=== PATIENT | female | born 1980 | race Caucasian/White ===

== ENCOUNTER 2023-12-22 20:52 | Observation (INO) ==
[2023-12-22 21:30] LABS: Hematocrit (blood only) 31.7 % (37.0-47.0); Hemoglobin 9.7 g/dl (12.0-16.0); Mean Corpuscular Hemoglobin 22.6 pg (25.0-34.0); Mean Corpuscular Hgb Conc 30.6 g/dL (32.0-36.0); Mean Corpuscular Volume 73.7 fL (80.0-100.0); Platelet Count 316 K/uL (130-400); RDW Coefficient of Variation 21.9 % (11.5-14.5); RDW Standard Deviation 55.8 fL (36.4-46.3); White Blood Count 13.35 K/ul (4.8-10.8)
[2023-12-22 21:38] LABS: INR 0.9 (0.9-1.1); Partial Thromboplastin Ratio 0.9; Partial Thromboplastin Time 24 Seconds (21-31); Prothrombin Time 10.3 Seconds (9.0-12.0)
[2023-12-22 21:57] LABS: Albumin Globulin Ratio 1.4 (0.9-2); Albumin Level 3.7 gm/dl (3.4-5.0); BUN Creatinine Ratio 8.2 (10-20); Bilirubin,Total 0.6 mg/dl (0.2-1.0); Calcium 8.7 mg/dl (8.6-10.3); Creatinine Clr Calc Pharmacy 132.9 ml/min; Est GFR (African American) 118.6 ml/min; Est GFR (Non-African American) 102.3 ml/min; Globulin 2.6 gm/dl (2.5-4.0); Potassium 3.5 mmol/L (3.5-5.1); Total Protein 6.3 gm/dl (6.0-8.3)
--- NOTE | 2023-12-22 21:59 | Emergency Department Note ---
Impression & Plan Acute GI bleeding, Crohns disease, Anemia ED Provider Note NAME: ALEJANDRA SUTTON AGE: 43 SEX: F : 1980 ARRIVES VIA: Walk-In INFORMANT: Patient, ED PROVIDER(S): Ernst Isaacs MD CHIEF COMPLAINT: Abdominal pain, dark stools, history of Crohn's MEDICAL DECISION MAKING: Patient presents due to concern for abdominal pain and dark stools. IV was established and blood work was obtained. Blood work shows a white count of 13 with a hemoglobin of 9. Patient's platelet count is unremarkable. ESR and CRP are elevated. Troponin negative. Patient CT abdomen pelvis does not show obvious bowel obstruction but may show inflammatory change. Given these concerns and the patient's dark stools the patient may benefit from GI consultation and further discussion about colonoscopy and/or endoscopy. Patient was ordered Protonix bolus and drip additional IV fluids. I did speak with the on-call hospitalist service Dr. Stewart and the patient was admitted to the medicine service. Discussion w/ other healthcare providers: Dr. Stewart inpatient medicine service Prior /Outside records reviewed: [facility] Patient was noted to have a tortuous colon with congested erythematous and hemorrhagic mucosa in the entire examined colon which was biopsied. Differential diagnosis: Crohn's flare, GI bleed, appendicitis, ovarian cyst, ovarian torsion, ectopic , TOA, PID, diverticulitis, UTI, obstruction, inflammatory bowel disease, renal colic, PUD, pancreatitis, biliary pathology, hernia, volvulus, constipation, as well as other pathologies were considered. Diagnostics, as interpreted by me: ECG: None Cardiac monitoring: An order was placed for continuous cardiac monitoring. The monitor shows a rate of 65 with sinus rhythm. Patient was placed on pulse oximetry Medical decision rules: None Imaging studies: I informally interpreted the patient's CT abdomen pelvis may show inflammatory changes of the distal small bowel no obvious bowel obstruction with formal report to follow. HPI: Patient presents due to concern for dark stools and abdominal pain. Patient reportedly was at [facility] earlier today and they were concerned about her symptoms but do not have a GI service. The patient was given the options of transportation versus AMA patient left AMA to present here. Patient has follow- up with Dr. Chavarria in the past and does have a history of Crohn's disease. Patient states that she had been on Remicade as well as Humira which also treated for RA but that she had allergic reactions and thus is not currently on any medications. The patient states that she has noticed some dark stools and occasional bright red blood. The patient does not take any blood thinning medications. Patient states that her pain is in the upper abdomen as well as in the left lower quadrant. Patient denies any prior history of diverticulitis. Patient does not take any blood thinners or NSAIDs. Patient is accompanied by a family member at bedside. Patient denies any chest pains or shortness of breath. The patient did have 1 episode of vomiting today and this was nonbloody. PAST MEDICAL HISTORY: See Below PAST SURGICAL HISTORY: See Below SOCIAL HISTORY: See Below HOME MEDICATIONS: See Below ALLERGIES: See Below VITALS: See Below PHYSICAL EXAMINATION: GENERAL: NAD, non-toxic. EYE EXAM: Normal conjunctiva. PERRL, no anisocoria and EOM's grossly intact w/o pain. OROPHARYNX: Moist mucus membranes, grossly normal dentition. NECK: Trachea midline, no stridor. LUNGS: Clear to auscultation. Normal chest wall mechanics. HEART: NSR, no MRG. ABDOMEN: Abdomen soft, epigastric and left lower quadrant pain, no masses, no rebound or guarding. BACK: No CVA TTP. SKIN: No rashes and no bruising. UPPER EXTREMITIES: Upper extremities are grossly normal. LOWER EXTREMITIES: Grossly normal, no edema. NEURO EXAM: A&O x3, cranial nerves II-XII grossly intact, normal speech, moves all 4 extremities. Past Med/Surg History Problem List (Updated 12/23/23 @ 01:21 by Ernst Isaacs MD) Anemia (Acute) Acute GI bleeding (Acute) Diarrhea Encounter for pre-operative examination Crohns disease (Acute) Rheumatoid arthritis Surgical History History of dilatation and curettage x2 History of section x2 History of colonoscopy History of esophagogastroduodenoscopy (EGD) History of cholecystectomy History of tooth extraction History of wisdom tooth extraction History of tonsillectomy Family History Grandfather (Maternal) Family history of diabetes mellitus Grandfather (Paternal) Family history of diabetes mellitus Other No family history of adverse response to anesthesia Social History Smoking Status: Never smoker Second Hand Exposure: No; Do You Dip or Chew Tobacco: No; Hx Alcohol Use: Yes Alcohol type: wine Hx Substance Use: No Preferred Language: Kyrgyz Communication Ability: Effective Supervisor Composing Room Required: No Beliefs That Will Affect Care: None Current Living Situation: Spouse Current Living Situation Comment: Lives with and 2 kids Feels Safe at Home: Yes Assistive Devices: Contacts and Glasses Allergies Allergies Allergy/AdvReac Type Severity Reaction Status Date / Time infliximab [From Remicade] Allergy Severe Anaphylaxis Verified 04/03/21 11:10 Home Meds Home Medications Medication Instructions Recorded Confirmed mercaptopurine 50 mg tablet 100 mg PO QAM Crohns colitis 05/24/20 04/03/21 sertraline 100 mg tablet (Zoloft) 100 mg PO QAM 03/30/21 04/03/21 Previous Rx's Medication Instructions Recorded adalimumab 40 mg/0.4 mL See Rx Instructions subcut 04/05/20 subcutaneous pen kit (Humira(CF) .COMPLEX #2 ea Pen) hydrocortisone 2.5 % topical cream 1 applic topical BID PRN skin 11/08/21 irritation #30 grams Results & Data (ED) Vital Signs Vital Signs - 24 hr 12/22/23 20:54 12/22/23 21:57 12/22/23 22:00 Temperature 36.8 C Temperature Source Temporal Artery Scan Pulse Rate 82 66 Pulse Rate [Apical] 68 Respiratory Rate 16 15 Respiratory Effort / Characteristics Non-Labored Respiratory Depth Normal Respiratory Pattern Regular Blood Pressure 156/93 H Blood Pressure [Right Arm] 141/83 H Blood Pressure Mean 114 Blood Pressure Mean [Right Arm] 102 Pulse Oximetry 98 98 Oxygen Delivery Method Room Air Room Air Sepsis Recent Fever Within 48 Hours No Sepsis New/Unexplained Change in Mental Status N/A Sepsis Action Taken by Nursing No Action Required 12/23/23 00:01 Temperature Temperature Source Pulse Rate Pulse Rate [Apical] 60 Respiratory Rate Respiratory Effort / Characteristics Respiratory Depth Respiratory Pattern Blood Pressure Blood Pressure [Right Arm] 116/69 Blood Pressure Mean Blood Pressure Mean [Right Arm] 84 Pulse Oximetry 99 Oxygen Delivery Method Room Air Sepsis Recent Fever Within 48 Hours Sepsis New/Unexplained Change in Mental Status Sepsis Action Taken by Group Home Medications Current Medication List: was personally reviewed by me Laboratory Data Attestation: I reviewed the patient's lab results. 12/22/23 21:15 12/22/23 21:15 Lab Results 12/22/23 12/22/23 Range/Units 21:14 21:15 WBC 13.35 H (4.8-10.8) K/ul RBC 4.30 (4.20-5.40) M/uL Hgb 9.7 L (12.0-16.0) g/dl Hct 31.7 L (37.0-47.0) % MCV 73.7 L (80.0-100.0) fL MCH 22.6 L (25.0-34.0) pg MCHC 30.6 L (32.0-36.0) g/dL RDW Std Deviation 55.8 H (36.4-46.3) fL RDW Coeff of Dionne 21.9 H (11.5-14.5) % Plt Count 316 (130-400) K/uL MPV 10.0 (9.4-12.4) fL ESR 26 H (0-20) mm/hr PT 10.3 (9.0-12.0) Seconds INR 0.9 (0.9-1.1) APTT 24 (21-31) Seconds PTT Ratio 0.9 Sodium 137 (136-145) mmol/L Potassium 3.5 (3.5-5.1) mmol/L Chloride 107 (98-107) mmol/L Carbon Dioxide 23 (21-32) mmol/L Anion Gap 7 (3-11) BUN 6 (6-23) mg/dl Creatinine 0.73 (0.6-1.2) mg/dl Est Cr Clr Drug Dosing 132.9 ml/min Est GFR ( Amer) 118.6 ml/min Est GFR (Non-Af Amer) 102.3 ml/min BUN/Creatinine Ratio 8.2 L (10-20) Glucose 101 H (70-99(Fasting)) mg/dl Calcium 8.7 (8.6-10.3) mg/dl Total Bilirubin 0.6 (0.2-1.0) mg/dl AST 16 (13-39) U/L ALT 12 (7-52) U/L Alkaline Phosphatase 57 (34-104) U/L Troponin I High Sens 3.5 (0-14) pg/ml C-Reactive Protein 2.26 H (0-0.5) mg/dl Total Protein 6.3 (6.0-8.3) gm/dl Albumin 3.7 (3.4-5.0) gm/dl Globulin 2.6 (2.5-4.0) gm/dl Albumin/Globulin Ratio 1.4 (0.9-2) Blood Type O Positive Antibody Screen NEGATIVE Administered Medications Discontinued Medications Sodium Chloride (Nss) 1,000 mls @ 999 mls/hr IV .Q1H1M LENORA Stop: 12/23/23 00:30 Last Infusion: 12/23/23 01:04 Dose: Infused Documented By: Admin: 12/23/23 00:01 Dose: 999 mls/hr Documented By: Infusion: 12/22/23 23:43 Dose: Infused Documented By: Admin: 12/22/23 22:42 Dose: 999 mls/hr Documented By: NORTH Ioversol (Optiray 320 100ml) 94 ml IV ONCE ONE Stop: 12/22/23 22:06 Last Admin: 12/22/23 22:07 Dose: 94 ml Documented By: VELASQUEZ Ondansetron HCl (Ondansetron Inj 2 Mg/Ml 2 Ml Vial) 4 mg IV NOW STA Stop: 12/22/23 22:30 Last Admin: 12/22/23 22:40 Dose: 4 mg Documented By: NORTH Discharge Plan Visit Data Chief Complaint: GI Bleed Stated Complaint: KRONES, ABD PAIN, BLOODY STOOL ED Provider: Ernst Isaacs Discharge Problem: Acute GI bleeding, Crohns disease, Anemia Forms Stand Alone Forms: [facility] Prescriptions Prescriptions: No Action Humira(CF) Pen 40 mg/0.4 mL pen injector kit See Rx Instructions subcut .COMPLEX Qty: 2 5RF Rx Instructions: inject one - 40 mg/0.4 mL pen every 2 weeks subcut hydrocortisone 2.5 % cream 1 applic topical BID PRN (Reason: skin irritation) Qty: 30 1RF mercaptopurine 50 mg tablet 100 mg PO QAM sertraline [Zoloft] 100 mg Tablet 100 mg PO QAM Referrals Referrals: PCP,NO [Primary Care Provider] - Discharge Problem: Crohns disease Qualifiers: Gastrointestinal tract location: unspecified location Anemia Qualifiers: Anemia type: unspecified type Qualified Code(s): D64.9 - Anemia, unspecified
[2023-12-22 22:06] LABS: Troponin I High Sensitivity 3.5 pg/ml (0-14)
[2023-12-22] MEDS: OPTIRAY 320 100ml IV ONE (22:07)
[2023-12-22 22:30] LABS: C Reactive Protein 2.26 mg/dl (0-0.5)
[2023-12-22] MEDS: ONDANSETRON INJ 2 MG/ML 2 ML VIAL IV STA (22:40)
[2023-12-22] MEDS: SODIUM CHLORIDE 0.9% 1,000 ML IV SCH (22:42)
[2023-12-23] MEDS: PANTOprazole 80 MG in DEXTROSE 5% 100 ML IV ONE (01:17)
--- NOTE | 2023-12-23 01:35 | CT Scan Report ---
Exam(s): CT ABDOMEN + PELVIS With Contrast IV Amt: 94 ml opti 320 EXAM: CT Abdomen and Pelvis With Intravenous Contrast CLINICAL HISTORY: Pain TECHNIQUE: Axial computed tomography images of the abdomen and pelvis with intravenous contrast. CTDI is 28.05 mGy and DLP is 1508.92 mGy-cm. Automated exposure control was utilized for the study. A dose lowering technique was utilized adhering to the principles of ALARA. CONTRAST: Patient received 94 ml opti 320 of IV contrast COMPARISON: No relevant prior studies available. FINDINGS: Lung bases: Unremarkable. No mass. No consolidation. ABDOMEN: Liver: Unremarkable. No mass. Gallbladder and bile ducts: Cholecystectomy. No ductal dilation. Pancreas: Unremarkable. No mass. No ductal dilation. Spleen: Unremarkable. No splenomegaly. Adrenals: Unremarkable. No mass. Kidneys and ureters: Unremarkable. No solid mass. No hydronephrosis. Stomach and bowel: Surgical changes of the stomach and small bowel. No bowel obstruction. A small amount of free fluid in the descending colon is consistent with diarrheal state. PELVIS: Appendix: No findings to suggest acute appendicitis. Bladder: Unremarkable. No mass. Reproductive: Unremarkable as visualized. ABDOMEN and PELVIS: Intraperitoneal space: No free air. Bones/joints: There are degenerative changes of the spine. No acute fracture. No dislocation. Soft tissues: Unremarkable. Vasculature: Minimal atherosclerosis. No abdominal aortic aneurysm. Lymph nodes: Unremarkable. No enlarged lymph nodes. IMPRESSION: A small amount of free fluid in the descending colon is consistent with diarrheal state. Otherwise, no acute finding. Electronically signed by: Shanda Brown MD 12/23/23 01:34 AM
[2023-12-23] MEDS: PANTOprazole 40 MG in DEXTROSE 5% MINI-B 100 ML IV SCH (01:36)
[2023-12-23] MEDS: SODIUM CHLORIDE 0.9% 1,000 ML IV ONE (01:47)
[2023-12-23] MEDS: PANTOPRAZOLE BOLUS/DRIP IV STA (03:09)
[2023-12-23] MEDS ORDERED: HYDROmorphone INJ 0.5 MG/0.5 ML SYR IV PRN (06:07)
[2023-12-23] MEDS ORDERED: NITROGLYCERIN SL 0.4 MG/TAB TAB SL PRN (06:07)
[2023-12-23] MEDS ORDERED: ACETAMINOPHEN 325 MG TAB PO PRN (06:07)
[2023-12-23] MEDS ORDERED: ONDANSETRON INJ 2 MG/ML 2 ML VIAL IV PRN (06:07)
[2023-12-23] MEDS: SODIUM CHLORIDE 0.9% 1,000 ML IV SCH (06:18)
--- NOTE | 2023-12-23 06:23 | History & Physical Report ---
Date of Service December 23, 2023 Assessment & Plan (1) GI bleed: Plan: 43-year-old female with past medical history significant for ulcerative colitis and rheumatoid arthritis, currently not on any medications presents with abdominal pain and black stools. Patient states for last few days having abdominal pain moderate to severe in severity. She also noticed stools are black. Because of ongoing symptoms she went to [facility] and as there was no GI she came here. At [facility] patient states her stool was positive for Hemoccult. Denies any fevers. States had one episode of vomiting. Currently nauseous. Denies any chest pain or shortness of breath. No cough. No fevers. No headache. Vision is okay. No runny nose or sore throat. Micturating okay. Hemodynamics are okay. GI bleed melena hemoglobin 9.7 Protonix drip n.p.o., IV fluids. Blood consent obtained will follow H&H telemetry GI consult Crohn's disease states Remicade caused allergic reaction. After some time she developed allergic reaction to Humira also. Currently not on any medication since last 1 and half year as per patient. Probably ongoing symptoms could be Crohn's flare GI consulted for further recommendations. Rheumatoid arthritis Not on medications will check ESR and CRP needs follow-up DVT prophylaxis SCDs disposition telemetry full code History of Present Illness Chief Complaint: Abdominal pain and GI bleed Primary Care Provider: NO PCP 43-year-old female with past medical history significant for ulcerative colitis and rheumatoid arthritis, currently not on any medications presents with abdominal pain and black stools. Patient states for last few days having abdominal pain moderate to severe in severity. She also noticed stools are black. Because of ongoing symptoms she went to [facility] and as there was no GI she came here. At [facility] patient states her stool was positive for Hemoccult. Denies any fevers. States had one episode of vomiting. Currently nauseous. Denies any chest pain or shortness of breath. No cough. No fevers. No headache. Vision is okay. No runny nose or sore throat. Micturating okay. Hemodynamics are okay. Past medical history. As mentioned above past surgical history. . Colonoscopy. Cholecystectomy. Tonsillectomy. Social history. Quit smoking 2009. Alcohol occasionally. No drug use. Family history. Maternal grandfather had diabetes. Paternal grandfather had diabetes. Allergies Allergy/AdvReac Type Severity Reaction Status Date / Time infliximab [From Remicade] Allergy Severe Anaphylaxis Verified 12/23/23 01:22 Home Medications Medication Instructions Recorded Confirmed Type medroxyprogesterone 150 mg/mL 150 mg IM UD 12/23/23 12/23/23 History intramuscular syringe Past Med/Surg History Problem List (Updated 12/23/23 @ 06:19 by Lyle Stewart MD) GI bleed Anemia (Acute) Acute GI bleeding (Acute) Diarrhea Encounter for pre-operative examination Crohns disease (Acute) Rheumatoid arthritis Surgical History History of dilatation and curettage x2 History of section x2 History of colonoscopy History of esophagogastroduodenoscopy (EGD) History of cholecystectomy History of tooth extraction History of wisdom tooth extraction History of tonsillectomy Family History Grandfather (Maternal) Family history of diabetes mellitus Grandfather (Paternal) Family history of diabetes mellitus Other No family history of adverse response to anesthesia Social History Smoking Status: Never smoker Second Hand Exposure: No; Do You Dip or Chew Tobacco: No; Tobacco Cessation Education Requested by Patient: No Hx Alcohol Use: No Hx Substance Use: No Preferred Language: Luxembourgish Communication Ability: Effective Teaching Fellow Required: No Beliefs That Will Affect Care: None Current Living Situation: Alone Current Living Situation Comment: Lives with and 2 kids Other Information That Helps Us Care for You: No Feels Safe at Home: Yes Safety Concerns: Feels Safe At This Time Assistive Devices: None Review of Systems Review of Systems: All systems reviewed & are unremarkable except as noted in HPI & below Physical Exam Physical Exam: General- Not in distress Head- atraumatic Eyes- PERRL. ENT- oropharynx clear Neck- supple, no JVD. Lungs- clear to auscultation no wheezing or crackles Heart- regular rate and rhythm; no murmur, no gallop. Abdomen- normal bowel sounds, soft, nontender, no distension Extremities- no pretibial edema, no erythema seen Neuro- alert, oriented PERRL, no facial palsy; no dysarthria; moves extremities. Results & Data Results & Data Vital Signs (Past 12 Hours) Vital Signs Temp Pulse Pulse Resp BP BP Pulse Ox 12/23/23 03:00 63 18 113/70 12/23/23 01:49 72 12/23/23 00:01 60 116/69 99 12/22/23 22:00 66 12/22/23 21:57 68 15 141/83 H 98 12/22/23 20:54 36.8 C 82 16 156/93 H 98 O2 Del Method 12/23/23 03:00 12/23/23 01:49 12/23/23 00:01 Room Air 12/22/23 22:00 12/22/23 21:57 Room Air 12/22/23 20:54 Room Air Diagnostic Findings Laboratory Results WBC 13.35 K/ul (4.8-10.8) H 12/22/23 21:15 RBC 4.30 M/uL (4.20-5.40) 12/22/23 21:15 Hgb 9.7 g/dl (12.0-16.0) L 12/22/23 21:15 Hct 31.7 % (37.0-47.0) L 12/22/23 21:15 MCV 73.7 fL (80.0-100.0) L 12/22/23 21:15 MCH 22.6 pg (25.0-34.0) L 12/22/23 21:15 MCHC 30.6 g/dL (32.0-36.0) L 12/22/23 21:15 RDW Std Deviation 55.8 fL (36.4-46.3) H 12/22/23 21:15 RDW Coeff of Dionne 21.9 % (11.5-14.5) H 12/22/23 21:15 Plt Count 316 K/uL (130-400) 12/22/23 21:15 MPV 10.0 fL (9.4-12.4) 12/22/23 21:15 ESR 26 mm/hr (0-20) H 12/22/23 21:15 PT 10.3 Seconds (9.0-12.0) 12/22/23 21:14 INR 0.9 (0.9-1.1) 12/22/23 21:14 APTT 24 Seconds (21-31) 12/22/23 21:14 PTT Ratio 0.9 12/22/23 21:14 Sodium 137 mmol/L (136-145) 12/22/23 21:15 Potassium 3.5 mmol/L (3.5-5.1) 12/22/23 21:15 Chloride 107 mmol/L (98-107) 12/22/23 21:15 Carbon Dioxide 23 mmol/L (21-32) 12/22/23 21:15 Anion Gap 7 (3-11) 12/22/23 21:15 BUN 6 mg/dl (6-23) 12/22/23 21:15 Creatinine 0.73 mg/dl (0.6-1.2) 12/22/23 21:15 Est Cr Clr Drug Dosing 132.9 ml/min 12/22/23 21:15 Est GFR ( Amer) 118.6 ml/min 12/22/23 21:15 Est GFR (Non-Af Amer) 102.3 ml/min 12/22/23 21:15 BUN/Creatinine Ratio 8.2 (10-20) L 12/22/23 21:15 Glucose 101 mg/dl (70-99(Fasting)) H 12/22/23 21:15 Calcium 8.7 mg/dl (8.6-10.3) 12/22/23 21:15 Total Bilirubin 0.6 mg/dl (0.2-1.0) 12/22/23 21:15 AST 16 U/L (13-39) 12/22/23 21:15 ALT 12 U/L (7-52) 12/22/23 21:15 Alkaline Phosphatase 57 U/L (34-104) 12/22/23 21:15 Troponin I High Sens 3.5 pg/ml (0-14) 12/22/23 21:15 C-Reactive Protein 2.26 mg/dl (0-0.5) H 12/22/23 21:15 Total Protein 6.3 gm/dl (6.0-8.3) 12/22/23 21:15 Albumin 3.7 gm/dl (3.4-5.0) 12/22/23 21:15 Globulin 2.6 gm/dl (2.5-4.0) 12/22/23 21:15 Albumin/Globulin Ratio 1.4 (0.9-2) 12/22/23 21:15 Blood Type O Positive 12/22/23 21:15 Antibody Screen NEGATIVE 12/22/23 21:15 Impressions Abdomen/Pelvis CT 12/22/23 21:55 Exam(s): CT ABDOMEN + PELVIS With Contrast IV Amt: 94 ml opti 320 EXAM: CT Abdomen and Pelvis With Intravenous Contrast CLINICAL HISTORY: Pain TECHNIQUE: Axial computed tomography images of the abdomen and pelvis with intravenous contrast. CTDI is 28.05 mGy and DLP is 1508.92 mGy-cm. Automated exposure control was utilized for the study. A dose lowering technique was utilized adhering to the principles of ALARA. CONTRAST: Patient received 94 ml opti 320 of IV contrast COMPARISON: No relevant prior studies available. FINDINGS: Lung bases: Unremarkable. No mass. No consolidation. ABDOMEN: Liver: Unremarkable. No mass. Gallbladder and bile ducts: Cholecystectomy. No ductal dilation. Pancreas: Unremarkable. No mass. No ductal dilation. Spleen: Unremarkable. No splenomegaly. Adrenals: Unremarkable. No mass. Kidneys and ureters: Unremarkable. No solid mass. No hydronephrosis. Stomach and bowel: Surgical changes of the stomach and small bowel. No bowel obstruction. A small amount of free fluid in the descending colon is consistent with diarrheal state. PELVIS: Appendix: No findings to suggest acute appendicitis. Bladder: Unremarkable. No mass. Reproductive: Unremarkable as visualized. ABDOMEN and PELVIS: Intraperitoneal space: No free air. Bones/joints: There are degenerative changes of the spine. No acute fracture. No dislocation. Soft tissues: Unremarkable. Vasculature: Minimal atherosclerosis. No abdominal aortic aneurysm. Lymph nodes: Unremarkable. No enlarged lymph nodes. IMPRESSION: A small amount of free fluid in the descending colon is consistent with diarrheal state. Otherwise, no acute finding. Electronically signed by: Shanda Brown MD 12/23/23 01:34 AM ECG Additional Comments: ECG. Normal sinus rhythm rate of 60. No acute ST Changes seen. QTc 408. Code Status & VTE Plan VTE Prophylaxis Plan VTE Prophylaxis will be ordered: Yes
[2023-12-23 07:48] LABS: Basophils # (auto) 0.06 K/uL (0.00-0.20); Basophils % (auto) 0.7 %; Eosinophils # (auto) 0.39 K/uL (0.00-0.50); Eosinophils % (auto) 4.6 %; Hematocrit (blood only) 26.8 % (37.0-47.0); Hemoglobin 8.1 g/dl (12.0-16.0); Immature Granulocytes # (auto) 0.06 K/uL (0.01-0.20); Immature Granulocytes % (auto) 0.7 %; Lymphocytes # (auto) 1.25 K/uL (1.20-3.40); Lymphocytes % (auto) 14.8 %; Mean Corpuscular Hemoglobin 22.5 pg (25.0-34.0); Mean Corpuscular Hgb Conc 30.2 g/dL (32.0-36.0); Mean Corpuscular Volume 74.4 fL (80.0-100.0); Mean Platelet Volume 9.4 fL (9.4-12.4); Monocytes # (auto) 0.65 K/uL (0.11-0.59); Monocytes % (auto) 7.7 %; Neutrophils # (auto) 6.02 K/uL (1.40-6.50); Neutrophils % (auto) 71.5 %; Platelet Count 221 K/uL (130-400); RDW Coefficient of Variation 21.9 % (11.5-14.5); RDW Standard Deviation 57.7 fL (36.4-46.3); White Blood Count 8.43 K/ul (4.8-10.8)
[2023-12-23 08:17] LABS: Anisocytosis Present; Polychromasia 2+
[2023-12-23 08:26] LABS: Calcium 7.2 mg/dl (8.6-10.3); Magnesium 1.6 mg/dl (1.7-2.4); Potassium 3.6 mmol/L (3.5-5.1)
[2023-12-23 08:32] LABS: BUN Creatinine Ratio 5.6 (10-20); Creatinine Clr Calc Pharmacy 137.5 ml/min; Est GFR (African American) 120.6 ml/min
--- NOTE | 2023-12-23 09:03 | Gastrointestinal Consultation ---
Date of Consultation December 23, 2023 Assessment & Plan (1) GI bleed: 43 year old female with history of Crohn's colitis, RA, psoriasis previously established with , [facility] in 2017, [facility] 2020, [facility] who has tried and failed humira, remicade, simponi, stelara, 6mp admitted with midline abd pain, black stools and diarrhea. She has microcytic anemia w/ HGB of 8 withoutBUN elevation, CT suggestive of diarrhea, stool studies not obtained. Check fecal calprotectin Check stool culture and c.diff Quant gold, acute hepatitis panel Check iron studies and ferritin Start oral iron supplementation pending results PO PPI BID Trend H&H Monitor and document GI output Transfuse PRN per primary service She is hoping to establish with a tertiary IBD center, endoscopy should be completed by this service unless urgently indicated. She can consider evaluation at [facility], [facility], [facility] or [facility] which all have dedicated IBD centers. We appreciate assistance in the management of any serological abnormality and corrections to include: hemoglobin >7, INR <2, platelets >50,000, potassium levels >3.5 but <5.3, and sodium levels within 5 points of the reference range prior to endoscopic evaluation. Thank you for allowing us to participate in the care of this patient. Please call with any acute changes, questions or concerns. Please see addendum below with additional recommendation from my supervising physician. I spent a total of 60 minutes on the date of service in review of patient's record, and previously obtained information in person and appropriate medical visit, discussion and education of plan, with patient and/or caregiver, placing orders for tests/referral/procedures as medically necessary and documentation of pertinent clinical information in patient's medical records for their visit today. (2) Anemia: Supervising Physician Co-Signing Physician Notes I examined the patient and reviewed the medical record, laboratory data and imaging studies. I agree with the assessment and plan of care as suggested by the advanced practice provider. Pleasant 43-year-old female who has been having GI colitis since 2018 as per the colonoscopy reports during different colonoscopy reports there is mention of pancolonic inflammation in between she also became normal then she had recurrence of inflammation in the last colonoscopy report there was also pancolonic inflammation of note I reviewed the images and there appeared to be more consistent with ulcerative colitis than Crohn's disease there was a diffuse area of inflammation and there were no distinct aphthous ulcerations that were seen the patient is also behaving more so like you see them close disease her recent CAT scan I reviewed with radiology and it appeared essentially from the colonic standpoint at the current time she is having variable amount of bowel movements varying from 2-6 with some bleeding intermittently she has some nonspecific abdominal pain since being admitted to the hospital she has not had any more bowel movements she has been on Remicade Humira and some other medication that she cannot fully remember and she may have been on more meds also currently has not been on any meds for the last 9 months and has not been seeing any GI also her abdomen is soft no tenderness or masses are appreciated at the current time I would 1. Check stool studies including C. difficile ova parasites culture and sens itivity 2. Follow CRP levels 3. In view of the fact that she has not had a bowel movement since she has been here and she is only having 2-6 bowel movements I would not treat her with steroids 4. IV iron replacement therapy and then outpatient iron replacement 5. She needs to establish care with a retail parts pro will probably need to repeat her colonoscopy and depending upon the findings decide to place her on some long-term therapy in the meantime we will consider starting her on mesalamine if she has not been on it Thank you for allowing us to take part in the care of your patient we will continue to follow her with you History of Present Illness Reason for Consultation: GI bleeding Requesting Physician: Arian Attending Physician: Devonte Don MD History of Present Illness 43 year old female with history of Crohn's colitis, RA, psoriasis previously established with [facility] in 2020, [facility] in 2016 and most recently [facility] in 2022 who is admitted through the ED w/ abdominal pain, nausea/vomiting and diarrhea w/ report of black stools. Pt was seen and evaluated, chart reviewed. She notes that she has been without IBD specific medication for about 1 year. Notes she has been symptomatic the entire time but worsened over the last 1-2 weeks. Notes generalized abdominal pain, most localized around her umbilicus. The pain is worse with BM and oral intake. There has been nausea with emesis x 1 event. No black or bloody emesis. He has had intermittent black stools with mucous for the last few weeks. No BRBPR. Bowel movements range in from 2-10 times daily. 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 Otherwise, no acute finding. Colonoscopy 09/23/2022: - Tortuous colon. - Congested, erythematous and hemorrhagic mucosa in the entire examined colon. Biopsied. Allergies Allergy/AdvReac Type Severity Reaction Status Date / Time infliximab [From Remicade] Allergy Severe Anaphylaxis Verified 12/23/23 01:22 Home Medications Medication Instructions Recorded Confirmed Type medroxyprogesterone 150 mg/mL 150 mg IM UD 12/23/23 12/23/23 History intramuscular syringe Patient History Surgical History History of dilatation and curettage x2 History of section x2 History of colonoscopy History of esophagogastroduodenoscopy (EGD) History of cholecystectomy History of tooth extraction History of wisdom tooth extraction History of tonsillectomy Family History Grandfather (Maternal) Family history of diabetes mellitus Grandfather (Paternal) Family history of diabetes mellitus Other No family history of adverse response to anesthesia Social History Smoking Status: Never smoker Second Hand Exposure: No; Do You Dip or Chew Tobacco: No; Tobacco Cessation Education Requested by Patient: No Hx Alcohol Use: No Hx Substance Use: No Preferred Language: Yi Communication Ability: Effective Power Shovel Engineer Required: No Beliefs That Will Affect Care: None Current Living Situation: Alone Current Living Situation Comment: Lives with and 2 kids Other Information That Helps Us Care for You: No Feels Safe at Home: Yes Safety Concerns: Feels Safe At This Time Assistive Devices: None Review of Systems Review of Systems: All other findings negative except as noted in HPI. Physical Exam Constitutional: WD/WN, vitals as above Respiratory: normal respiratory effort, lungs clear to auscultation Cardiovascular: Rate/Rhythm: regular rate and regular rhythm Gastrointestinal (Abdomen): Inspection/Auscultation: normal bowel sounds Percussion/Palpation: + abdomen tender (generalized) and abdomen soft; no guarding and abdomen not rigid Skin: no rashes, warm and dry Results & Data Vital Signs (Past 12 Hours) Vital Signs Temp Pulse Pulse Resp BP BP Pulse Ox 12/23/23 07:47 36.8 C 63 18 110/77 99 12/23/23 06:20 57 L 12/23/23 06:07 36.9 C 64 16 119/69 99 12/23/23 05:33 55 L 12/23/23 05:00 55 L 16 106/62 12/23/23 04:00 59 L 18 113/67 12/23/23 03:00 63 18 113/70 12/23/23 01:49 72 12/23/23 00:01 60 116/69 99 12/22/23 22:00 66 12/22/23 21:57 68 15 141/83 H 98 O2 Del Method 12/23/23 07:47 Room Air 12/23/23 06:20 12/23/23 06:07 Room Air 12/23/23 05:33 12/23/23 05:00 12/23/23 04:00 12/23/23 03:00 12/23/23 01:49 12/23/23 00:01 Room Air 12/22/23 22:00 12/22/23 21:57 Room Air Laboratory Results 12/23/23 12/22/23 12/22/23 Range/Units 07:27 21:15 21:14 WBC 8.43 13.35 H (4.8-10.8) K/ul RBC 3.60 L 4.30 (4.20-5.40) M/uL Hgb 8.1 L 9.7 L (12.0-16.0) g/dl Hct 26.8 L 31.7 L (37.0-47.0) % MCV 74.4 L 73.7 L (80.0-100.0) fL MCH 22.5 L 22.6 L (25.0-34.0) pg MCHC 30.2 L 30.6 L (32.0-36.0) g/dL RDW Std Deviation 57.7 H 55.8 H (36.4-46.3) fL RDW Coeff of Dionne 21.9 H 21.9 H (11.5-14.5) % Plt Count 221 316 (130-400) K/uL MPV 9.4 10.0 (9.4-12.4) fL Immature Gran % (Auto) 0.7 % Neut % (Auto) 71.5 % Lymph % (Auto) 14.8 % Coos % (Auto) 7.7 % Eos % (Auto) 4.6 % Baso % (Auto) 0.7 % Neut # (Auto) 6.02 (1.40-6.50) K/uL Lymph # (Auto) 1.25 (1.20-3.40) K/uL Coos # (Auto) 0.65 H (0.11-0.59) K/uL Eos # (Auto) 0.39 (0.00-0.50) K/uL Baso # (Auto) 0.06 (0.00-0.20) K/uL Immature Gran # (Auto) 0.06 (0.01-0.20) K/uL Polychromasia 2+ Anisocytosis Present ESR 8 26 H (0-20) mm/hr PT 10.3 (9.0-12.0) Seconds INR 0.9 (0.9-1.1) APTT 24 (21-31) Seconds PTT Ratio 0.9 Sodium 139 137 (136-145) mmol/L Potassium 3.6 3.5 (3.5-5.1) mmol/L Chloride 111 H 107 (98-107) mmol/L Carbon Dioxide 23 23 (21-32) mmol/L Anion Gap 5 7 (3-11) BUN 4 L 6 (6-23) mg/dl Creatinine 0.72 0.73 (0.6-1.2) mg/dl Est Cr Clr Drug Dosing 137.5 132.9 ml/min Est GFR ( Amer) 120.6 118.6 ml/min Est GFR (Non-Af Amer) 104.0 102.3 ml/min BUN/Creatinine Ratio 5.6 L 8.2 L (10-20) Glucose 90 101 H (70-99(Fasting)) mg/dl Calcium 7.2 L 8.7 (8.6-10.3) mg/dl Magnesium 1.6 L (1.7-2.4) mg/dl Total Bilirubin 0.6 (0.2-1.0) mg/dl AST 16 (13-39) U/L ALT 12 (7-52) U/L Alkaline Phosphatase 57 (34-104) U/L Troponin I High Sens 3.5 (0-14) pg/ml C-Reactive Protein 1.80 H 2.26 H (0-0.5) mg/dl Total Protein 6.3 (6.0-8.3) gm/dl Albumin 3.7 (3.4-5.0) gm/dl Globulin 2.6 (2.5-4.0) gm/dl Albumin/Globulin Ratio 1.4 (0.9-2) Blood Type O Positive Antibody Screen NEGATIVE PG Care Time/CCT Total # of Minutes Spent Total Time Spent with Patient: Total time spent is greater than 50% in coordination of care (as documented) at patient's floor/unit and/or counseling patient: Coding Level of Care Code 40328 IN/OBS CONSULT LVL 4,60M Diagnoses GI bleed K92.2 Anemia D64.9 Anemia type: unspecified type (2) Anemia Anemia type: unspecified type Qualified Code(s): D64.9 - Anemia, unspecified
[2023-12-23 10:23] LABS: Hematocrit (blood only) 29.5 % (37.0-47.0); Hemoglobin 8.9 g/dl (12.0-16.0)
[2023-12-23 11:09] LABS: Hep B Core Total Antibody Negative (Negative)
[2023-12-23 11:14] LABS: Hep B Surface Ag with confirm Negative (Negative)
[2023-12-23 11:19] LABS: Hep C Ab Rflx HepCQuant RNA Negative (Negative)
--- NOTE | 2023-12-23 12:04 | Communication Note ---
Date of Service: December 23, 2023 patient was seen and examined at bedside. 43-year-old lady with PMH of ulcerative colitis, rheumatoid arthritis, not on any medication presented with abdominal pain and blackish stool for about 1 week RUG SHAMPOOER. Patient reports taking some ibuprofen for few days about 3 weeks ago RUG SHAMPOOER. She had been too tired in hospital 2 times in the last 1 week RUG SHAMPOOER, she was directed to our hospital as they did not help GI physician. She denies any febrile illness or shortness of breath or cough or headache or sore throat or pain/burning while passing urine. She is being managed for the following: Likely upper GI bleed Patient presented with melena for about 1 week duration RUG SHAMPOOER Baseline hemoglobin around 11, admitting hemoglobin of 9.7 Admitting CTAP reviewed. Trend hemoglobin every 6 hours, labs in a.m. Continue with IV PPI, NPO GI following, plan to check fecal calprotectin, stool culture and C. difficile, hepatitis panel, QuantiFERON gold Send iron studies, ferritin, vitamin B12, folate levels Transfuse for hemoglobin less than 7 or for symptomatic anemia.Continue telemetry monitoring. Other chronic medical conditions: Continue with/resume home meds as and when able Chron's disease: History of allergic reaction to Remicade and Humira. Currently not on any medication since last 1 and half year per patient. Patient plan to follow-up with IBD specialist as an outpatient, encourage her to establish as soon as possible. GI evaluated while inpatient. Appreciate re commendation. Rheumatoid arthritis: Not on any medications, ESR negative, CRP mildly elevated. Patient recommended to follow-up with rheumatology as an outpatient. DVT prophylaxis: SCDs Disposition: Continue telemetry monitoring Full code For further details of the patient, refer to today's H&P note.
[2023-12-23] MEDS: MAGNESIUM SULFATE / D5W 1 GM/100 ML BAG IV SCH (12:29)
[2023-12-23 13:02] LABS: Folate (Folic Acid),Ser orPlas 6.32 ng/ml (>5.38)
[2023-12-23 13:44] LABS: Ferritin 8.8 ng/ml (8-388)
[2023-12-23 19:32] LABS: Hematocrit (blood only) 28.1 % (37.0-47.0); Hemoglobin 8.3 g/dl (12.0-16.0)
[2023-12-24 02:47] VITALS: O2SAT 97
--- NOTE | 2023-12-24 06:31 | Electrocardiogram Report ---
Test Reason : Blood Pressure : / mmHG Vent. Rate : 068 BPM Atrial Rate : 068 BPM P-R Int : 130 ms QRS Dur : 084 ms QT Int : 384 ms P-R-T Axes : 038 034 037 degrees QTc Int : 408 ms Normal sinus rhythm Low voltage QRS Borderline ECG No previous ECGs available Confirmed by Gerardo Green ([id number]) on 12/24/2023 6:31:09 AM Referred By: Confirmed By:Gerardo Green
[2023-12-24 06:39] LABS: Hematocrit (blood only) 26.9 % (37.0-47.0); Hemoglobin 8.1 g/dl (12.0-16.0); Mean Corpuscular Hemoglobin 22.8 pg (25.0-34.0); Mean Corpuscular Hgb Conc 30.1 g/dL (32.0-36.0); Mean Corpuscular Volume 75.8 fL (80.0-100.0); Mean Platelet Volume 10.4 fL (9.4-12.4); Platelet Count 227 K/uL (130-400); RDW Coefficient of Variation 21.9 % (11.5-14.5); RDW Standard Deviation 58.1 fL (36.4-46.3); Red Blood Count 3.55 M/uL (4.20-5.40); White Blood Count 8.38 K/ul (4.8-10.8)
[2023-12-24 06:59] LABS: BUN Creatinine Ratio 7.1 (10-20); Calcium 7.1 mg/dl (8.6-10.3); Creatinine Clr Calc Pharmacy 142.4 ml/min; Est GFR (African American) 124.7 ml/min; Est GFR (Non-African American) 107.6 ml/min; Phosphorus 3.5 mg/dl (2.5-4.9); Potassium 3.6 mmol/L (3.5-5.1)
--- NOTE | 2023-12-24 08:47 | Gastroenterology Progress Note ---
Date of Service December 24, 2023 Assessment & Plan (1) GI bleed: Plan: 43 year old female with history of Crohn's colitis, RA, psoriasis previously established with , [facility] in 2016, [facility] in 2020, [facility] in 2022 who has tried and failed humira, remicade, simponi, stelara, 6mp admitted with midline abd pain, black stools and diarrhea. She has microcytic anemia w/ HGB of 8 without BUN elevation, CT suggestive of diarrhea, stool studies pending. No GI contraindication to diet No GI contraindication to discharge home Please discharge wiht a 1 month script of Lialda 4.8 g once daily - medication side effect profile discussed Check fecal calprotectin Check stool culture and c.diff Quant gold, acute hepatitis panel Start oral iron supplementation PO PPI BID Trend H&H Monitor and document GI output Transfuse PRN per primary service She is hoping to establish with a tertiary IBD center, endoscopy should be completed by this service unless urgently indicated. She can consider evaluation at [facility], [facility], [facility] or [facility] which all have dedicated IBD centers. Thank you for allowing us to participate in the care of this patient. Please call with any acute changes, questions or concerns. Please see addendum below with additional recommendation from my supervising physician. I spent a total of 55 minutes on the date of service in review of patient's record, and previously obtained information in person and appropriate medical visit, discussion and education of plan, with patient and/or caregiver, placing orders for tests/referral/procedures as medically necessary and documentation of pertinent clinical information in patient's medical records for their visit today. (2) Anemia: Admission and Anticipated Discharge Date Admission Date: December 23, 2023 Supervising Physician Co-Signing Physician Notes I examined the patient and reviewed the medical record, laboratory data and i maging studies. I agree with the assessment and plan of care as suggested by the advanced practice provider. Patient is lying comfortably in the bed she states she has had 2 bowel movements in last 24 hours does not have any abdominal pain no of note she is tolerating p.o. of note her stool studies were positive for norovirus and E. coli I reviewed her old colonoscopy images and the findings were most consistent with ulcerative colitis rather than Crohn's disease at the current time I would 1. Placed on mesalamine and will give 1 month supply advised patient to follow- up with gastroenterology as she would like to see a specialist IBD center and establish care with they can do a colonoscopy and determine for sure whether she has UC OCD and then treat accordingly she is not very symptomatic at the current time. With just having 2 bowel movements no abdominal pain thus I would not treat her with steroids but I think the mesalamine will help 2. Anemia she is getting IV iron currently and would give her outpatient iron and follow serially Thank you for allowing us to take part in the care of your patient Subjective Was able to have a BM this AM - first stool since admission. She notes it was dark. No report of black or bloody stool. Stool studies are now pending. Iron 16, ferritin 8, trans sat 4% AM labs otherwise largely unchanged. Review of Systems Review of Systems: All other findings negative except as noted in HPI. Physical Exam Constitutional: WD/WN, vitals as above Respiratory: normal respiratory effort, lungs clear to auscultation Cardiovascular: Rate/Rhythm: regular rate and regular rhythm Gastrointestinal (Abdomen): Inspection/Auscultation: normal bowel sounds Percussion/Palpation: + abdomen tender (generalized) and abdomen soft; no guarding and abdomen not rigid Skin: no rashes, warm and dry Results & Data Results & Data Vital Signs (Past 12 Hours) Vital Signs Temp Pulse Pulse Resp BP BP Pulse Ox 12/24/23 07:00 36.3 C L 77 17 131/81 97 12/24/23 02:46 36.3 C L 63 12 127/74 97 12/23/23 23:00 65 12/23/23 22:45 36.9 C 71 20 118/74 99 O2 Del Method 12/24/23 07:00 Room Air 12/24/23 02:46 Room Air 12/23/23 23:00 12/23/23 22:45 Room Air Laboratory Results 12/24/23 12/24/23 12/23/23 Range/Units Unknown 05:42 18:58 WBC 8.38 (4.8-10.8) K/ul RBC 3.55 L (4.20-5.40) M/uL Hgb 8.1 L 8.3 L (12.0-16.0) g/dl Hct 26.9 L 28.1 L (37.0-47.0) % MCV 75.8 L (80.0-100.0) fL MCH 22.8 L (25.0-34.0) pg MCHC 30.1 L (32.0-36.0) g/dL RDW Std Deviation 58.1 H (36.4-46.3) fL RDW Coeff of Dionne 21.9 H (11.5-14.5) % Plt Count 227 (130-400) K/uL MPV 10.4 (9.4-12.4) fL Sodium 141 (136-145) mmol/L Potassium 3.6 (3.5-5.1) mmol/L Chloride 114 H (98-107) mmol/L Carbon Dioxide 21 (21-32) mmol/L Anion Gap 6 (3-11) BUN 5 L (6-23) mg/dl Creatinine 0.70 (0.6-1.2) mg/dl Est Cr Clr Drug Dosing 142.4 ml/min Est GFR ( Amer) 124.7 ml/min Est GFR (Non-Af Amer) 107.6 ml/min BUN/Creatinine Ratio 7.1 L (10-20) Glucose 91 (70-99(Fasting)) mg/dl Calcium 7.1 L (8.6-10.3) mg/dl Phosphorus 3.5 (2.5-4.9) mg/dl Magnesium 2.0 (1.7-2.4) mg/dl Iron (35-150) mcg/dl TIBC (250-450) mcg/dl Unsaturated IBC (155-355) mcg/dl Transferrin % Sat (15-50) % Ferritin (8-388) ng/ml Vitamin B12 (180-914) pg/ml Folate (>5.38) ng/ml Stool Calprotectin Pending Stl C. cayetanensis PCR Pending Stool Rotavirus A PCR Pending Stl Adenov F 40/41 PCR Pending Stool Astrovirus (PCR) Pending Stool Campylobacter PCR Pending Stl C. diff Tox B Gene Pending Stool Cryptosporidium PCR Pending Stl E.coli Shiga Tox PCR Pending Stl Enterotoxigenic E PCR Pending Stool EAEC (PCR) Pending Stl E. histolytica PCR Pending Stool Giardia Lamblia PCR Pending Stool Salmonella PCR Pending Stool Sapovirus (PCR) Pending Stl P. shigelloides PCR Pending Stl Shigella/EIEC PCR Pending St Y.enterocolitica PCR Pending Stool Vibrio (PCR) Pending Stl Vibrio cholerae PCR Pending Stl Norovirus GI/GII PCR Pending Hepatitis A IgM Ab Hep Bs Antigen (Negative) Hep B Core Total Ab (Negative) Hep B Core IgM Ab Hepatitis C Antibody (Negative) TB Test (QFT) Gold Plus TB Test (QFT) Nil TB Test Mitogen - Nil TB Test Ag - Nil 1 TB Test Ag - Nil 2 12/23/23 12/23/23 Range/Units 09:58 07:27 WBC (4.8-10.8) K/ul RBC (4.20-5.40) M/uL Hgb 8.9 L (12.0-16.0) g/dl Hct 29.5 L (37.0-47.0) % MCV (80.0-100.0) fL MCH (25.0-34.0) pg MCHC (32.0-36.0) g/dL RDW Std Deviation (36.4-46.3) fL RDW Coeff of Dionne (11.5-14.5) % Plt Count (130-400) K/uL MPV (9.4-12.4) fL Sodium (136-145) mmol/L Potassium (3.5-5.1) mmol/L Chloride (98-107) mmol/L Carbon Dioxide (21-32) mmol/L Anion Gap (3-11) BUN (6-23) mg/dl Creatinine (0.6-1.2) mg/dl Est Cr Clr Drug Dosing ml/min Est GFR ( Amer) ml/min Est GFR (Non-Af Amer) ml/min BUN/Creatinine Ratio (10-20) Glucose (70-99(Fasting)) mg/dl Calcium (8.6-10.3) mg/dl Phosphorus (2.5-4.9) mg/dl Magnesium (1.7-2.4) mg/dl Iron 16 L (35-150) mcg/dl TIBC 363 (250-450) mcg/dl Unsaturated IBC 347 (155-355) mcg/dl Transferrin % Sat 4 L (15-50) % Ferritin 8.8 (8-388) ng/ml Vitamin B12 278 (180-914) pg/ml Folate 6.32 (>5.38) ng/ml Stool Calprotectin Stl C. cayetanensis PCR Stool Rotavirus A PCR Stl Adenov F 40/41 PCR Stool Astrovirus (PCR) Stool Campylobacter PCR Stl C. diff Tox B Gene Stool Cryptosporidium PCR Stl E.coli Shiga Tox PCR Stl Enterotoxigenic E PCR Stool EAEC (PCR) Stl E. histolytica PCR Stool Giardia Lamblia PCR Stool Salmonella PCR Stool Sapovirus (PCR) Stl P. shigelloides PCR Stl Shigella/EIEC PCR St Y.enterocolitica PCR Stool Vibrio (PCR) Stl Vibrio cholerae PCR Stl Norovirus GI/GII PCR Hepatitis A IgM Ab Pending Hep Bs Antigen Negative (Negative) Hep B Core Total Ab Negative (Negative) Hep B Core IgM Ab Pending Hepatitis C Antibody Negative (Negative) TB Test (QFT) Gold Plus Pending TB Test (QFT) Nil Pending TB Test Mitogen - Nil Pending TB Test Ag - Nil 1 Pending TB Test Ag - Nil 2 Pending PG Care Time/CCT Total # of Minutes Spent Total Time Spent with Patient: Total time spent is greater than 50% in coordination of care (as documented) at patient's floor/unit and/or counseling patient: Coding Level of Care Code 28749 SUB INP/OBS CARE 3/50MIN Diagnoses GI bleed K92.2 Anemia D64.9 Anemia type: unspecified type (2) Anemia Anemia type: unspecified type Qualified Code(s): D64.9 - Anemia, unspecified
[2023-12-24] MEDS: CYANOCOBALAMIN (B-12) 500 MCG TABLET PO SCH (09:14)
[2023-12-24] MEDS: FOLIC ACID 1 MG TAB PO SCH (09:14)
[2023-12-24] MEDS: IRON SUCROSE 200 MG in 0.9 % SODIUM CHLORIDE 100 ML IV ONE ×2 (09:50→13:11)
[2023-12-24 10:00] LABS: Adenovirus F 40/41 PCR Not Detected (NotDetected); Astrovirus PCR Not Detected (NotDetected); Campylobacter PCR Not Detected (NotDetected); Cryptosporidium PCR Not Detected (NotDetected); Cyclospora cayetanensis PCR Not Detected (NotDetected); Entamoeba histolytica PCR Not Detected (NotDetected); Enteropathogenic E.coli (EPEC) Not Detected (NotDetected); Enterotoxigenic E.coli (ETEC) Not Detected (NotDetected); Giardia lamblia PCR Not Detected (NotDetected); Plesiomonas shigelloides PCR Not Detected (NotDetected); Rotavirus A PCR Not Detected (NotDetected); Salmonella PCR Not Detected (NotDetected); Sapovirus PCR Not Detected (NotDetected); Shiga-like Toxin E.coli (STEC) Not Detected (NotDetected); Shigella/Enteroinvasive E.coli Not Detected (NotDetected); Vibrio cholerae PCR Not Detected (NotDetected); Vibrio species PCR Not Detected (NotDetected); Yersinia enterocolitica PCR Not Detected (NotDetected)
[2023-12-24 10:55] LABS: Enteroaggregative E.coli(EAEC) DETECTED (NotDetected)
[2023-12-24 10:56] LABS: Norovirus GI/GII PCR DETECTED (NotDetected)
[2023-12-24 12:04] VITALS: RESP 18; TEMP 98.1
--- NOTE | 2023-12-24 13:00 | Discharge Summary ---
Date of Service December 24, 2023 Admission HPI Per Admitting Provider 43-year-old female with past medical history significant for ulcerative colitis and rheumatoid arthritis, currently not on any medications presents with abdominal pain and black stools. Patient states for last few days having abdominal pain moderate to severe in severity. She also noticed stools are black. Because of ongoing symptoms she went to [facility] and as there was no GI she came here. At [facility] patient states her stool was positive for Hemoccult. Denies any fevers. States had one episode of vomiting. Currently nauseous. Denies any chest pain or shortness of breath. No cough. No fevers. No headache. Vision is okay. No runny nose or sore throat. Micturating okay. Hemodynamics are okay. Past medical history. As mentioned above past surgical history. . Colonoscopy. Cholecystectomy. Tonsillectomy. Social history. Quit smoking 2009. Alcohol occasionally. No drug use. Family history. Maternal grandfather had diabetes. Paternal grandfather had diabetes. Admission Exam Per Admitting Provider General- Not in distress Head- atraumatic Eyes- PERRL. ENT- oropharynx clear Neck- supple, no JVD. Lungs- clear to auscultation no wheezing or crackles Heart- regular rate and rhythm; no murmur, no gallop. Abdomen- normal bowel sounds, soft, nontender, no distension Extremities- no pretibial edema, no erythema seen Neuro- alert, oriented PERRL, no facial palsy; no dysarthria; moves extremities. Principal Diagnosis Likely Upper GI bleed Anemia iso UGI bleed Iron deficiency anemia H/o Chron's Dz. norovirus and e coli enteritis. Discharge Exam General- Not in distress Head- atraumatic Eyes- PERRL. ENT- oropharynx clear Neck- supple, no JVD. Lungs- clear to auscultation no wheezing or crackles Heart- regular rate and rhythm; no murmur, no gallop. Abdomen- normal bowel sounds, soft, nontender, no distension Extremities- no pretibial edema, no erythema seen Neuro- alert, oriented PERRL, no facial palsy; no dysarthria; moves extremities. 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 She denies any febrile illness or shortness of breath or cough or headache or sore throat or pain/burning while passing urine. 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 Hemoglobin has been stable above 8, patient with no further blood in stool. Brown stool per RN. Iron profile with decreased iron store, folate and B12 level low normal. Discussed with patient, patient agreeable for IV iron, will be discharged on p.o. iron and vitamin B12 and folate supplement. To p.o. PPI on discharge, patient to follow-up with GI in 2 to 4 weeks time of discharge. Patient denies any headache or dizziness or chest pain or palpitation, patient is hemodynamically stable and would like to go home. Norovirus/E. coli enteritis: Patient with no diarrhea, hemodynamically stable, patient advised to monitor for any increased diarrhea/replace with [id number] Pedialyte solution to account for the fluid loss in stool. Also advised to report to emergency if increased frequency of diarrhea along with poor p.o. intake for need of IV hydration/electrolyte replacement. Other chronic medical conditions: Continue with/resume home meds as and when able Chron's disease: History of allergic reaction to Remicade and Humira. Currently not on any medication since last 1 and half year per patient. Patient plan to follow-up with IBD specialist as an outpatient, encourage her to establish as soon as possible. GI evaluated while inpatient. Recommend Lialda 4.8 g daily. Appreciate recommendation. Rheumatoid arthritis: Not on any medications, ESR negative, CRP mildly elevated. Patient recommended to follow-up with rheumatology as an outpatient. DVT prophylaxis: SCDs Disposition: Continue telemetry monitoring Full code Patient is being discharged home with following instruction at the point of discharge: Follow-up with your primary care physician within a week time and likely you will need labs CBC/CMP/magnesium/phosphorus. You were admitted with possible upper GI bleed, GI evaluated you while in the hospital. You were noted to have low iron stores and low normal folic acid and vitamin B12 level. You will receive 400 Mg IV iron prior to discharge today, you will be discharged on oral iron/folate/vitamin B12 supplements. You will need repeat iron profile and vitamins level done in 1 to 2 weeks time. Coordinate with the PCP office to set up the test. You were also noted to have gastroenteritis secondary to E. coli and norovirus. The management is basically symptomatic. If you have increased diarrhea, maintain adequate intake of electrolyte solution such as [id number]-opsxyll Pedialyte to account for the loss of fluids in the stool. If you have worsening diarrhea associated with poor intake, report to emergency immediately for IV hydration need. For your history of IBD, recommend to set yourself up with tertiary IBD center. GI evaluated you, discharging you with Lialda 4.8 g once daily. Continue to take p.o. pantoprazole twice a day, follow-up with GI in 2 to 4 weeks time upon discharge. Appears that your blood in the stool has improved, if you have increasing blood in the stool or symptoms of anemia including easy fatigability/headache/dizziness/chest pain/palpitation/shortness of breath, report to emergency immediately. Take your medications as prescribed. Please make sure that you are able to get your medications today by calling your pharmacy before you leave the hospital so that your treatment continuity is not broken. Home Health Attestation I certify that this patient is under my care and that I, or a physicians circulation assistant working with me, had a face to-face encounter that meets the home health [id number] encounter requirements with this patient. The encounter with the patient was in whole, or in part, for the following medical condition, which is the primary reason for home health care (list medical condition): I certify that, based on my findings, the following services are medically necessary home health services: My clinical findings support the need for the above services because: Further, I certify that my clinical findings support that this patient is homebound (i.e. absences from home require considerable and taxing effort and are for medical reasons or catholic services or infrequently or of short duration when for other reasons) because: Certification for Home Health Services: Based on the above findings, I certify that this patient is confined to the home and needs intermittent halfway care, physical therapy and/or speech therapy or continues to need occupational therapy. The patient is under my care, and I have initiated the establishment of the plan of care. This patient will be followed by a physician who will periodically review the plan of care. Total Time Total Time Spent Total Time Spent (In Minutes): 45 Discharge Plan Discharge Items Patient Disposition: Home - Self-Care Reason For Visit: GI BLEED Discharge Diagnosis: Likely UGI bleed Iron deficiency anemia ISO UGI bleed Norovirus and E. coli enteritis Activity: Resume your previous activity Non-emergency contact: Primary Care Provider Call non-emergency contact if: you have any medication questions and your symptoms worsen Follow-up/Referrals: PCP,JEY [Primary Care Provider] - Diet: Low Fiber Addtl Attending Provider Instructions: Follow-up with your primary care physician within a week time and likely you will need labs CBC/CMP/magnesium/phosphorus. You were admitted with possible upper GI bleed, GI evaluated you while in the hospital. You were noted to have low iron stores and low normal folic acid and vitamin B12 level. You will receive 400 Mg IV iron prior to discharge today, you will be discharged on oral iron/folate/vitamin B12 supplements. You will need repeat iron profile and vitamins level done in 1 to 2 weeks time. Coordinate with the PCP office to set up the test. You were also noted to have gastroenteritis secondary to E. coli and norovirus. The management is basically symptomatic. If you have increased diarrhea, maintain adequate intake of electrolyte solution such as [id number] Pedialyte to account for the loss of fluids in the stool. If you have worsening diarrhea associated with poor intake, report to emergency immediately for IV hydration need. For your history of IBD, recommend to set yourself up with tertiary IBD center. GI evaluated you, discharging you with Lialda 4.8 g once daily. Continue to take p.o. pantoprazole twice a day, follow-up with GI in 2 to 4 weeks time upon discharge. Appears that your blood in the stool has improved, if you have increasing blood in the stool or symptoms of anemia including easy fatigability/headache/dizziness/chest pain/palpitation/shortness of breath, report to emergency immediately. Take your medications as prescribed. Please make sure that you are able to get your medications today by calling your pharmacy before you leave the hospital so that your treatment continuity is not broken. Pending Studies at Discharge: No Stand-Alone Forms: My [facility], Smoking Cessation Medications and DC Order Prescriptions: New pantoprazole 40 mg Tablet,Delayed Release (Dr/Ec) 40 mg PO BID Qty: 60 0RF cyanocobalamin (vitamin B-12) 500 mcg Tablet 500 mcg PO QAM Qty: 30 0RF folic acid 1 mg Tablet 1 mg PO QAM Qty: 30 0RF ferrous sulfate 325 mg (65 mg iron) tablet 325 mg PO DAILY Qty: 30 0RF mesalamine [Lialda] 1.2 gram tablet,delayed release (DR/EC) 4.8 g PO DAILY Qty: 120 0RF Continued medroxyprogesterone 150 mg/mL syringe 150 mg IM UD Discharge Orders: Discharge Order (Routine); Ordered 12/24/23 Ordered By: Devonte Don Admission Data Admit Date/Time: 12/23/23 04:03 Attending Provider: Devonte Don Admit Provider: Lyle Stewart Primary Care Provider: PCP,NO Other Providers: Lyle Stewart; Kurt Rivera
[2023-12-24 13:54] VITALS: BP 127/74; PULSE 72
[2023-12-24 14:17] LABS: Hepatitis A Antibody IgM NON-REACTIVE (NON-REACTIVE); Hepatitis B Core Antibody IgM NON-REACTIVE (NON-REACTIVE)
[2023-12-24] MEDS ORDERED: PANTOprazole 40 MG TAB PO SCH (21:00)
[2023-12-26 11:28] LABS: Quantiferon Mitogen-NIL 7.86 IU/mL; Quantiferon NIL 0.02 IU/mL; Quantiferon TB Gold Plus NEGATIVE (NEGATIVE)
--- NOTE | 2023-12-26 13:55 | Coding Query ---
CODING QUERY To promote full compliance with coding requirements relating to patient care, provider participation is requested in all cases of drafting teacher uncertainty. Please assist us with the question(s) below: Coding Question(s): Pt admitted with upper GI Bleed, Crohns disease diagnosed this admission with E coli & Norovirus enteritis. Please document, if known or suspected, the etiology of the GI bleed. thanks for your help! [facility] Physician's Response(s): suspected acid peptic disease Principal Diagnosis: "that condition established after study, to be chiefly responsible for occasioning the admission of the patient to the hospital for care." Co-Existing Principal Diagnosis: "when two or more diagnoses equally meet the criteria for principal diagnosis as determined by the circumstances of admission, diagnostic work up, and/or therapy provided, and the Alphabetic Index, Tabular List, or another coding guideline does not provide sequencing direction, any one of the diagnoses may be sequenced first." "When the physician has documented what appears to be a current diagnosis in the body of the record, but has not included the diagnosis in the final diagnostic statement, the physician should be asked whether the diagnosis should be added." (Source Coding Clinic 2 QTR90. p3-4) LIANA
== END 2023-12-24 16:29 | disposition home or self-care (01) | DRG 378 ==
LOC: ED 20:52 → INTOOBSV 12-23 04:03 → 2E 12-23 04:03

== ENCOUNTER 2024-01-20 18:01 | Inpatient (IN) ==
--- NOTE | 2024-01-20 18:23 | Emergency Department Note ---
Impression & Plan Pneumonia, Pulmonary emboli, MENDES (dyspnea on exertion) ED Provider Note NAME: ALEJANDRA SUTTON AGE: 43 SEX: F : 1980 ARRIVES VIA: Walk-In INFORMANT: Patient, ED PROVIDER(S): Ernst Isaacs MD CHIEF COMPLAINT: Shortness of breath MEDICAL DECISION MAKING: Patient presented due to concern for shortness of breath. IV was established and blood work was obtained. Patient with a normal white count hemoglobin 11.4 with a normal platelet count. The patient's kidney function is unremarkable. LFTs unremarkable negative troponin BNP is not elevated. BioFire negative. The patient CT angiography of the chest does show small lateral residual thrombus no evidence of any saddle PE. Patient does have evidence concerning for pneumonia. It speak with patient and her friend that was present about her findings. After further discussion she would like to stay in the hospital. The patient was ordered IV fluids IV Rocephin and azithromycin. I did speak with the on- call hospitalist service Dr. Mcpherson and the patient was admitted to the medicine service. Discussion w/ other healthcare providers: None Prior /Outside records reviewed: I reviewed a discharge summary from January 07, 2024. Patient with history of IBD who presented with melena symptoms at that time. Patient was noted to have an upper GI bleed. Patient was having shortness of breath near syncope with troponin elevation bilateral lower extremity edema. Patient did have a CT angio of the chest which showed severe bilateral diffuse PEs with saddle embolism. Patient was discussed with the traffic observer for possible embolectomy and not a candidate for thrombolytic therapy given ongoing GI bleed. Was initiated on low-dose IV heparin at that time and transferred to [facility] after discussion with traffic observer Dr. Perry and interventional radiologist Dr. Garcia. Patient was transferred via [facility]. Differential diagnosis: Reactive airway disease, pneumonia, pneumothorax, COPD, CHF, ACS, pulmonary embolism, musculoskeletal, GERD as well as other pathologies were considered. Diagnostics, as interpreted by me: ECG: Normal sinus rhythm, rate 99, normal intervals, normal axis no ST elevations or TWI. Cardiac monitoring: An order was placed for continuous cardiac monitoring. The monitor shows a rate of 86 with sinus rhythm. Patient was placed on pulse oximetry Medical decision rules: None Imaging studies: I informally interpreted the patient's CT angiography of the chest does not show evidence of saddle PE with formal report to follow. HPI: Patient presents due to concern for worsening shortness of breath. The patient believes that this was especially worse today and unable to perform short tasks which she felt like she could do. This is in the setting of her recent transfer to [facility] for thrombectomy for large clot burden in the setting of GI bleed. Patient is currently on Coumadin therapy. Patient denies any dark or bloody stools that she is noticed at this time. Patient denies any chest pains but has had the shortness of breath. Patient has had associated cough but it is nonproductive. Patient noticed that her ankles appear to be swelling yesterday but it was in both ankles and not in 1 or the other. Patient denies any falls or trauma. Patient did recently travel to [place] for graduation constitution party and stated that she was very fatigable and slept most of the time she was there. Patient states that she was discharged from [facility] 2 Saturdays ago at which point the patient had been on a Lovenox bridge to Coumadin treatment and that her Coumadin has been therapeutic. She has not taken the Lovenox in several days. PAST MEDICAL HISTORY: See Below PAST SURGICAL HISTORY: See Below SOCIAL HISTORY: See Below HOME MEDICATIONS: See Below ALLERGIES: See Below VITALS: See Below PHYSICAL EXAMINATION: GENERAL: NAD, non-toxic. EYE EXAM: Normal conjunctiva. PERRL, no anisocoria and EOM's grossly intact w/o pain. OROPHARYNX: Moist mucus membranes, some signs of dental decay noted. NECK: Trachea midline, no stridor. LUNGS: Clear to auscultation. Normal chest wall mechanics. HEART: Tachycardic and regular, no MRG. ABDOMEN: Abdomen soft, non-tender, no masses, no rebound or guarding. BACK: No CVA TTP. SKIN: No rashes and no bruising. UPPER EXTREMITIES: Upper extremities are grossly normal. LOWER EXTREMITIES: Slight edema at the ankles bilaterally but nonpitting no obvious asymmetry or calf pain at the calves. Negative Homans' sign bilaterally and soft compartments. NEURO EXAM: A&O x3, cranial nerves II-XII grossly intact, normal speech, moves all 4 extremities. Past Med/Surg History Problem List (Updated 01/21/24 @ 01:04 by Ernst Isaacs MD) MENDES (dyspnea on exertion) (Acute) Pulmonary emboli (Acute) Pneumonia (Acute) UGIB (upper gastrointestinal bleed) Elevated troponin (Acute) GI bleed Anemia (Acute) Acute GI bleeding (Acute) Diarrhea Encounter for pre-operative examination Crohns disease (Acute) Rheumatoid arthritis Surgical History History of dilatation and curettage x2 History of section x2 History of colonoscopy History of esophagogastroduodenoscopy (EGD) History of cholecystectomy History of tooth extraction History of wisdom tooth extraction History of tonsillectomy Family History Grandfather (Maternal) Family history of diabetes mellitus Grandfather (Paternal) Family history of diabetes mellitus Other No family history of adverse response to anesthesia Social History Smoking Status: Never smoker Second Hand Exposure: No; Do You Dip or Chew Tobacco: No; Hx Alcohol Use: No Hx Substance Use: No Preferred Language: Macanese Communication Ability: Effective Bsa/Aml Compliance Officer Required: No Beliefs That Will Affect Care: None Current Living Situation: Family Current Living Situation Comment: lives in house with son Other Information That Helps Us Care for You: No Feels Safe at Home: Yes Safety Concerns: Feels Safe At This Time Assistive Devices: None Allergies Allergies Allergy/AdvReac Type Severity Reaction Status Date / Time infliximab [From Remicade] Allergy Severe Anaphylaxis Verified 01/20/24 20:16 adalimumab [From Humira] Allergy Intermediate LOCALIZED Verified 01/20/24 20:16 SWELLING AT INJECTION SITE Home Meds Home Medications Medication Instructions Recorded Confirmed sertraline 50 mg tablet 50 mg PO QAM 01/06/24 01/20/24 vitamin E 268 mg (400 unit) capsule 268 mg PO DAILY 01/06/24 01/20/24 enoxaparin 30 mg/0.3 mL 0 mg subcut DAILY PRN INR Results 01/20/24 01/20/24 subcutaneous syringe (Lovenox) warfarin 5 mg tablet See Rx Instructions .Route .COMPLEX 01/20/24 01/20/24 Previous Rx's Medication Instructions Recorded cyanocobalamin (vitamin B-12) 500 500 mcg PO QAM #30 tabs 12/24/23 mcg tablet ferrous sulfate 325 mg (65 mg 325 mg PO DAILY #30 tabs 12/24/23 iron) tablet folic acid 1 mg tablet 1 mg PO QAM #30 tabs 12/24/23 pantoprazole 40 mg tablet,delayed 40 mg PO BID #60 tabs 12/24/23 release Results & Data (ED) Vital Signs Vital Signs - 24 hr 01/20/24 18:13 01/20/24 18:58 01/20/24 19:10 Temperature 36.6 C Temperature Source Temporal Artery Scan Pulse Rate 101 H 86 Respiratory Rate 15 Blood Pressure 156/90 H Blood Pressure Mean 112 Pulse Oximetry 100 99 Oxygen Delivery Method Room Air Room Air Sepsis Recent Fever Within 48 Hours No Sepsis New/Unexplained Change in Mental Status No Sepsis Action Taken by Nursing No Action Required 01/20/24 19:30 01/20/24 19:32 01/20/24 20:21 Temperature Temperature Source Pulse Rate 78 83 Respiratory Rate 20 20 Blood Pressure 133/80 123/72 Blood Pressure Mean 109 89 Pulse Oximetry 97 97 Oxygen Delivery Method Room Air Sepsis Recent Fever Within 48 Hours Sepsis New/Unexplained Change in Mental Status Sepsis Action Taken by Nursing 01/20/24 21:01 Temperature Temperature Source Pulse Rate 75 Respiratory Rate 20 Blood Pressure 107/64 Blood Pressure Mean 75 Pulse Oximetry 96 Oxygen Delivery Method Sepsis Recent Fever Within 48 Hours Sepsis New/Unexplained Change in Mental Status Sepsis Action Taken by [facility] Medications Current Medication List: was personally reviewed by me Laboratory Data Attestation: I reviewed the patient's lab results. 01/20/24 18:31 01/20/24 18:31 Lab Results 01/20/24 01/20/24 Range/Units 18:31 18:47 WBC 7.30 (4.8-10.8) K/ul RBC 4.59 (4.20-5.40) M/uL Hgb 11.4 L (12.0-16.0) g/dl POC Hgb 12.9 (12.0-16.0) g/dl Hct 37.8 (37.0-47.0) % POC Hct 38 (37-47) % MCV 82.4 (80.0-100.0) fL MCH 24.8 L (25.0-34.0) pg MCHC 30.2 L (32.0-36.0) g/dL RDW Std Deviation 76.3 H (36.4-46.3) fL RDW Coeff of Dionne 26.2 H (11.5-14.5) % Plt Count 362 (130-400) K/uL MPV 9.6 (9.4-12.4) fL Immature Gran % (Auto) 0.5 % Neut % (Auto) 58.2 % Lymph % (Auto) 24.8 % [place] % (Auto) 7.7 % Eos % (Auto) 7.3 % Baso % (Auto) 1.5 % Neut # (Auto) 4.25 (1.40-6.50) K/uL Lymph # (Auto) 1.81 (1.20-3.40) K/uL [place] # (Auto) 0.56 (0.11-0.59) K/uL Eos # (Auto) 0.53 H (0.00-0.50) K/uL Baso # (Auto) 0.11 (0.00-0.20) K/uL Immature Gran # (Auto) 0.04 (0.01-0.20) K/uL Anisocytosis Present PT 21.6 H (9.0-12.0) Seconds INR 2.1 H (0.9-1.1) APTT 32 H (21-31) Seconds PTT Ratio 1.2 POC Sodium 142 (135-144) mmol/L Sodium 140 (136-145) mmol/L POC Potassium 4.1 (3.3-5.0) mmol/L Potassium 4.1 (3.5-5.1) mmol/L POC Chloride 108 (101-112) mmol/L Chloride 107 (98-107) mmol/L Carbon Dioxide 22 (21-32) mmol/L POC Total CO2 20 L (24-31) mmol/L Anion Gap 11 (3-11) POC Anion Gap 19.0 (16-25) mmol/L POC BUN 5 L (7-18) mg/dl BUN 8 (6-23) mg/dl Creatinine 0.73 (0.6-1.2) mg/dl POC Creatinine 1.1 (0.6-1.3) mg/dl Est Cr Clr Drug Dosing 133.4 ml/min Est GFR ( Amer) 118.6 ml/min Est GFR (Non-Af Amer) 102.3 ml/min BUN/Creatinine Ratio 11.0 (10-20) Glucose 154 H (70-99(Fasting)) mg/dl POC Glucose (other) 147 H (70-99) mg/dl Estimat Average Glucose 100 mg/dl Hemoglobin A1c 5.1 (4.5-5.6) % Calcium 8.9 (8.6-10.3) mg/dl POC Ioniz Calcium [place] 1.10 L (1.12-1.32) mmol/l Magnesium 1.9 (1.7-2.4) mg/dl Total Bilirubin 0.2 (0.2-1.0) mg/dl AST 23 (13-39) U/L ALT 25 (7-52) U/L Alkaline Phosphatase 90 (34-104) U/L Troponin I High Sens 4.2 (0-14) pg/ml B-Natriuretic Peptide 52 (0-100) pg/ml Total Protein 6.8 (6.0-8.3) gm/dl Albumin 3.9 (3.4-5.0) gm/dl Globulin 2.9 (2.5-4.0) gm/dl Albumin/Globulin Ratio 1.3 (0.9-2) Adenovirus (PCR) Not Detected (NotDetected) B. pertussis DNA (PCR) Not Detected (NotDetected) B.parapertussis DNA PCR Not Detected (NotDetected) C. pneumoniae DNA (PCR) Not Detected (NotDetected) Coronavirus OC43 (PCR) Not Detected (NotDetected) Coronavirus HKU1 (PCR) Not Detected (NotDetected) Coronavirus 229E (PCR) Not Detected (NotDetected) SARS-CoV-2 (PCR) Not Detected (NotDetected) Coronavirus NL63 (PCR) Not Detected (NotDetected) Human Metapneumovir PCR Not Detected (NotDetected) Influenza Type A (PCR) Not Detected (NotDetected) Influenza Type B (PCR) Not Detected (NotDetected) M. pneumoniae (PCR) Not Detected (NotDetected) Parainfluenza 1 (PCR) Not Detected (NotDetected) Parainfluenza 2 (PCR) Not Detected (NotDetected) Parainfluenza 3 (PCR) Not Detected (NotDetected) Parainfluenza 4 (PCR) Not Detected (NotDetected) RSV (PCR) Not Detected (NotDetected) Entero/Rhino (PCR) Not Detected (NotDetected) Administered Medications Discontinued Medications Albuterol (Albut/Ipratrop 3mg/0.5mg Neb 3 Ml Vial) 3 ml NEB NOW STA; Protocol Stop: 01/20/24 21:47 Last Admin: 01/20/24 22:44 Dose: 3 ml Documented By: BEATRICE Azithromycin (Azithromycin 250 Mg Tab) 500 mg PO NOW ONE Stop: 01/20/24 21:08 Last Admin: 01/20/24 21:41 Dose: 500 mg Documented By: BEATRICE Sodium Chloride (Nss) 500 mls @ 999 mls/hr IV .Q31M STA Stop: 01/20/24 19:02 Last Infusion: 01/20/24 19:33 Dose: Infused Documented By: Admin: 01/20/24 18:42 Dose: 999 mls/hr Documented By: PAM Ceftriaxone Sodium (Rocephin) 2,000 mg in 50 mls @ 100 mls/hr IV NOW STA Stop: 01/20/24 21:36 Last Infusion: 01/20/24 22:15 Dose: Infused Documented By: Admin: 01/20/24 21:41 Dose: 100 mls/hr Documented By: BEATRICE Sodium Chloride (Nss) 1,000 mls @ 999 mls/hr IV .Q1H1M ONE Stop: 01/20/24 22:07 Last Infusion: 01/21/24 00:21 Dose: Infused Documented By: Admin: 01/20/24 21:43 Dose: 999 mls/hr Documented By: BEATRICE Piperacillin Sod/Tazobactam Sod (Zosyn) 4.5 gm in 100 mls @ 200 mls/hr IV NOW ONE; Protocol Stop: 01/20/24 22:29 Last Infusion: 01/20/24 23:15 Dose: Infused Documented By: Admin: 01/20/24 22:44 Dose: 200 mls/hr Documented By: BEATRICE Doxycycline Hyclate 100 mg/ (Dextrose) 100 mls @ 50 mls/hr IV NOW STA Stop: 01/20/24 23:45 Last Admin: 01/21/24 00:21 Dose: 50 mls/hr Documented By: RABIA Ioversol (Optiray 320 125ml) 116 ml IV ONCE ONE Stop: 01/20/24 19:35 Last Admin: 01/20/24 19:35 Dose: 116 ml Documented By: JEREMY Imaging Data Radiologist's Impression: Chest CTA 01/20/24 18:32 Exam(s): CTA CHEST IV Amt: 116 ml optiray 320 EXAM: CT Angiography Chest With Intravenous Contrast CLINICAL HISTORY: Reason for exam: recent thrombectomy for saddle, worsening SOB. TECHNIQUE: Axial computed tomographic angiography images of the chest with intravenous contrast. CTDI is 39.5 mGy and DLP is 887.2 mGy-cm. Automated exposure control was utilized for the study. A dose lowering technique was utilized adhering to the principles of ALARA. MIP reconstructed images were created and reviewed. COMPARISON: January 06, 2024 FINDINGS: Pulmonary arteries: The pulmonary arterial tree is well opacified with contrast. The previously seen pulmonary emboli are considerably smaller than on the previous examination with small amount of residual thrombus in branch points of the lower lobe pulmonary artery branches bilaterally. The previously seen saddle embolus is no longer present. Aorta: No acute findings. No thoracic aortic aneurysm. Lungs: There is a central bronchial wall thickening in both lungs suggesting bronchitis and scattered areas of linear and reticular airspace infiltrate in the right upper lobe and right lower lobe suspicious for pneumonia which is new. No mass. Pleural space: Unremarkable. No significant effusion. No pneumothorax. Heart: The RV/LV ratio is within normal limits measuring 0.95, improved since previous. No significant pericardial effusion. Bones/joints: Mild degenerative changes in the spine. No acute fracture or subluxation. Soft tissues: Unremarkable. Lymph nodes: Unremarkable. No enlarged lymph nodes. IMPRESSION: 1. The pulmonary arterial tree is well opacified with contrast. The previously seen pulmonary emboli are considerably smaller than on the previous examination with small amount of residual thrombus in branch points of the lower lobe pulmonary artery branches bilaterally. The previously seen saddle embolus is no longer present. 2. There is a central bronchial wall thickening in both lungs suggesting bronchitis and scattered areas of linear and reticular airspace infiltrate in the right upper lobe and right lower lobe suspicious for pneumonia which is new. 3. The RV/LV ratio is within normal limits measuring 0.95, improved since previous. Previous gastric bypass surgery. Electronically signed by: Vahe Hernandez MD 01/20/24 20:45 PM Discharge Plan Visit Data Chief Complaint: Shortness of Breath/Dyspnea Stated Complaint: PULMONARY EMBOLISM RECENTLY, SOB ED Provider: Ernst Isaacs Discharge Problem: Pneumonia, Pulmonary emboli, MENDES (dyspnea on exertion) Patient Disposition: Admitted As Inpatient Discharge Instructions Interventions: ED Discharge Assessment Last Done: 01/20/24 22:57 Discharge Problem: Pneumonia Qualifiers: Pneumonia type: due to unspecified organism Laterality: right Lung location: u nspecified part of lung Qualified Code(s): J18.9 - Pneumonia, unspecified organism Pulmonary emboli Qualifiers: Pulmonary embolism type: unspecified Chronicity: chronic Acute cor pulmonale presence: unspecified Qualified Code(s): I27.82 - Chronic pulmonary embolism
[2024-01-20] MEDS: SODIUM CHLORIDE 0.9% 500 ML IV STA (18:42)
[2024-01-20 19:08] LABS: Basophils # (auto) 0.11 K/uL (0.00-0.20); Basophils % (auto) 1.5 %; Eosinophils # (auto) 0.53 K/uL (0.00-0.50); Eosinophils % (auto) 7.3 %; Hematocrit (blood only) 37.8 % (37.0-47.0); Hemoglobin 11.4 g/dl (12.0-16.0); Immature Granulocytes # (auto) 0.04 K/uL (0.01-0.20); Immature Granulocytes % (auto) 0.5 %; Lymphocytes # (auto) 1.81 K/uL (1.20-3.40); Lymphocytes % (auto) 24.8 %; Mean Corpuscular Hemoglobin 24.8 pg (25.0-34.0); Mean Corpuscular Hgb Conc 30.2 g/dL (32.0-36.0); Mean Corpuscular Volume 82.4 fL (80.0-100.0); Mean Platelet Volume 9.6 fL (9.4-12.4); Monocytes # (auto) 0.56 K/uL (0.11-0.59); Monocytes % (auto) 7.7 %; Neutrophils # (auto) 4.25 K/uL (1.40-6.50); Neutrophils % (auto) 58.2 %; Platelet Count 362 K/uL (130-400); RDW Coefficient of Variation 26.2 % (11.5-14.5); RDW Standard Deviation 76.3 fL (36.4-46.3); Red Blood Count 4.59 M/uL (4.20-5.40)
[2024-01-20 19:10] LABS: iSTAT Creatinine 1.1 mg/dl (0.6-1.3); iSTAT Hemoglobin 12.9 g/dl (12.0-16.0); iSTAT Ionized Calcium 1.1 mmol/l (1.12-1.32); iSTAT Potassium 4.1 mmol/L (3.3-5.0)
[2024-01-20 19:22] LABS: Albumin Globulin Ratio 1.3 (0.9-2); Albumin Level 3.9 gm/dl (3.4-5.0); Bilirubin,Total 0.2 mg/dl (0.2-1.0); Calcium 8.9 mg/dl (8.6-10.3); Creatinine Clr Calc Pharmacy 133.4 ml/min; Est GFR (African American) 118.6 ml/min; Est GFR (Non-African American) 102.3 ml/min; Globulin 2.9 gm/dl (2.5-4.0); Potassium 4.1 mmol/L (3.5-5.1); Total Protein 6.8 gm/dl (6.0-8.3)
[2024-01-20 19:27] LABS: Anisocytosis Present
[2024-01-20 19:30] LABS: Troponin I High Sensitivity 4.2 pg/ml (0-14)
[2024-01-20] MEDS: OPTIRAY 320 125ml IV ONE (19:35)
[2024-01-20 19:38] LABS: INR 2.1 (0.9-1.1); Partial Thromboplastin Ratio 1.2; Partial Thromboplastin Time 32 Seconds (21-31); Prothrombin Time 21.6 Seconds (9.0-12.0)
[2024-01-20 19:51] LABS: Adenovirus PCR Not Detected (NotDetected); Bordetella parapertussis PCR Not Detected (NotDetected); Bordetella pertussis PCR Not Detected (NotDetected); Chlamydia pneumoniae PCR Not Detected (NotDetected); Coronavirus 229E PCR Not Detected (NotDetected); Coronavirus CoV-2 (COVID19)PCR Not Detected (NotDetected); Coronavirus HKU1 PCR Not Detected (NotDetected); Coronavirus NL63 PCR Not Detected (NotDetected); Coronavirus OC43PCR Not Detected (NotDetected); Human Metapneumovirus PCR Not Detected (NotDetected); Influenza A PCR Not Detected (NotDetected); Influenza B PCR Not Detected (NotDetected); Mycoplasma pneumoniae PCR Not Detected (NotDetected); Parainfluenza Virus 1 PCR Not Detected (NotDetected); Parainfluenza Virus 2 PCR Not Detected (NotDetected); Parainfluenza Virus 3 PCR Not Detected (NotDetected); Parainfluenza Virus 4 PCR Not Detected (NotDetected); Respiratory Syncytial VirusPCR Not Detected (NotDetected); Rhinovirus/Enterovirus PCR Not Detected (NotDetected)
--- NOTE | 2024-01-20 20:46 | CT Scan Report ---
Exam(s): CTA CHEST IV Amt: 116 ml optiray 320 EXAM: CT Angiography Chest With Intravenous Contrast CLINICAL HISTORY: Reason for exam: recent thrombectomy for saddle, worsening SOB. TECHNIQUE: Axial computed tomographic angiography images of the chest with intravenous contrast. CTDI is 39.5 mGy and DLP is 887.2 mGy-cm. Automated exposure control was utilized for the study. A dose lowering technique was utilized adhering to the principles of ALARA. MIP reconstructed images were created and reviewed. COMPARISON: January 06, 2024 FINDINGS: Pulmonary arteries: The pulmonary arterial tree is well opacified with contrast. The previously seen pulmonary emboli are considerably smaller than on the previous examination with small amount of residual thrombus in branch points of the lower lobe pulmonary artery branches bilaterally. The previously seen saddle embolus is no longer present. Aorta: No acute findings. No thoracic aortic aneurysm. Lungs: There is a central bronchial wall thickening in both lungs suggesting bronchitis and scattered areas of linear and reticular airspace infiltrate in the right upper lobe and right lower lobe suspicious for pneumonia which is new. No mass. Pleural space: Unremarkable. No significant effusion. No pneumothorax. Heart: The RV/LV ratio is within normal limits measuring 0.95, improved since previous. No significant pericardial effusion. Bones/joints: Mild degenerative changes in the spine. No acute fracture or subluxation. Soft tissues: Unremarkable. Lymph nodes: Unremarkable. No enlarged lymph nodes. IMPRESSION: 1. The pulmonary arterial tree is well opacified with contrast. The previously seen pulmonary emboli are considerably smaller than on the previous examination with small amount of residual thrombus in branch points of the lower lobe pulmonary artery branches bilaterally. The previously seen saddle embolus is no longer present. 2. There is a central bronchial wall thickening in both lungs suggesting bronchitis and scattered areas of linear and reticular airspace infiltrate in the right upper lobe and right lower lobe suspicious for pneumonia which is new. 3. The RV/LV ratio is within normal limits measuring 0.95, improved since previous. Previous gastric bypass surgery. Electronically signed by: Vaeh Hernandez MD 01/20/24 20:45 PM
[2024-01-20] MEDS: cefTRIAXone SODIUM 2,000 MG/50 ML BAG IV STA (21:41)
[2024-01-20] MEDS: AZITHROMYCIN 250 MG TAB PO ONE (21:41)
[2024-01-20] MEDS: SODIUM CHLORIDE 0.9% 1,000 ML IV ONE (21:43)
--- NOTE | 2024-01-20 21:47 | History & Physical Report ---
Date of Service January 20, 2024 Assessment & Plan (1) HCAP (healthcare-associated pneumonia): Plan: Recent confinement at [facility] for saddle PE with RV strain status post embolectomy in the setting of GI bleed, ongoing Coumadin Rx, INR therapeutic No sepsis for now hx IBD/rheumatoid arthritis history gastric bypass chronic anemia, hemoglobin at baseline past tobacco abuse Admit to [facility] Doxycline, Zosyn Nebs RTC given wheezing on exam DVT prophylaxis. Coumadin INR goal between 2 and 3 Full code Text document was generated using [employer] voice recognition software. It may contain grammatical or spelling errors. Kindly contact undersigned for clarification of any documentation item in question. History of Present Illness Chief Complaint: Shortness of breath, worsening cough Primary Care Provider: Richard Reeves History obtained from patient, family, and records. Medical history significant for cor pulmonale secondary to recent saddle PE with LE clots status post thrombectomy on Coumadin, IBD, rheumatoid arthritis, NAFLD, history gastric bypass, chronic anemia (baseline hemoglobin of 10-11), past tobacco abuse. Two [facility] admissions this month. Recent confinement 2 weeks ago for saddle PE with RV strain with bilateral LE venous clots in the setting of recurrent UGIB. Patient transferred to [facility] where she was confined from January 06 to 2023. Patient underwent thrombectomy. Discharged on Lovenox Coumadin course. Outpatient hematology and GI follow-up recommended. A few days following discharge from [facility], patient noted junky cough symptoms later productive of greenish sputum. Denies aspiration. Not sure about sick contacts given recent hospital admissions. Denies abdominal pain or recent bleeding episodes. Worsening shortness of breath today. Ceftriaxone azithromycin administered at the ER. 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 Allergies Allergy/AdvReac Type Severity Reaction Status Date / Time infliximab [From Remicade] Allergy Severe Anaphylaxis Verified 01/20/24 20:16 adalimumab [From Humira] Allergy Intermediate LOCALIZED Verified 01/20/24 20:16 SWELLING AT INJECTION SITE Home Medications Medication Instructions Recorded Confirmed Type cyanocobalamin (vitamin B-12) 500 500 mcg PO QAM #30 tabs 12/24/23 01/20/24 Rx mcg tablet ferrous sulfate 325 mg (65 mg 325 mg PO DAILY #30 tabs 12/24/23 01/20/24 Rx iron) tablet folic acid 1 mg tablet 1 mg PO QAM #30 tabs 12/24/23 01/20/24 Rx pantoprazole 40 mg tablet,delayed 40 mg PO BID #60 tabs 12/24/23 01/20/24 Rx release sertraline 50 mg tablet 50 mg PO QAM 01/06/24 01/20/24 History vitamin E 268 mg (400 unit) capsule 268 mg PO DAILY 01/06/24 01/20/24 History enoxaparin 30 mg/0.3 mL 0 mg subcut DAILY PRN INR Results 01/20/24 01/20/24 History subcutaneous syringe (Lovenox) warfarin 5 mg tablet See Rx Instructions .Route .COMPLEX 01/20/24 01/20/24 History Past Med/Surg History Problem List (Updated 01/21/24 @ 06:31 by Timbo Mcpherson MD) HCAP (healthcare-associated pneumonia) MENDES (dyspnea on exertion) (Acute) Pulmonary emboli (Acute) Pneumonia (Acute) UGIB (upper gastrointestinal bleed) Elevated troponin (Acute) GI bleed Anemia (Acute) Acute GI bleeding (Acute) Diarrhea Encounter for pre-operative examination Crohns disease (Acute) Rheumatoid arthritis Surgical History History of dilatation and curettage x2 History of section x2 History of colonoscopy History of esophagogastroduodenoscopy (EGD) History of cholecystectomy History of tooth extraction History of wisdom tooth extraction History of tonsillectomy Family History Grandfather (Maternal) Family history of diabetes mellitus Grandfather (Paternal) Family history of diabetes mellitus Other No family history of adverse response to anesthesia Social History Smoking Status: Never smoker Second Hand Exposure: No; Do You Dip or Chew Tobacco: No; Hx Alcohol Use: No Hx Substance Use: No Preferred Language: Dominican Communication Ability: Effective House Rn Required: No Beliefs That Will Affect Care: None Current Living Situation: Family Current Living Situation Comment: lives in house with son Other Information That Helps Us Care for You: No Feels Safe at Home: Yes Safety Concerns: Feels Safe At This Time Assistive Devices: None Review of Systems Review of Systems: As per HPI, all other systems reviewed and negative Physical Exam Physical Exam: GENERAL: Comfortable, pleasant, obese, no respiratory distress SKIN: Normal color, warm HEENT: [place] palpebral conjunctivae, no ptosis, moist buccal mucosa NECK : Supple, no tenderness CHEST : Decreased breath sounds, expiratory wheezes on the right, no tenderness HEART : RRR, no obvious murmurs ABDOMEN: Some distention, no tenderness EXTREMITIES : Minimal LE swelling, no tenderness, no other conspicuous deformities noted NEUROLOGIC : Coherent, no facial asymmetry, no other gross focality Results & Data Results & Data Vital Signs (Past 12 Hours) Vital Signs Temp Pulse Resp BP Pulse Ox O2 Del Method 01/20/24 21:01 75 20 107/64 96 01/20/24 20:21 83 20 123/72 97 01/20/24 19:32 Room Air 01/20/24 19:30 78 20 133/80 97 01/20/24 19:10 86 01/20/24 18:58 99 Room Air 01/20/24 18:13 36.6 C 101 H 15 156/90 H 100 Room Air Laboratory Results Laboratory Results WBC 7.30 K/ul (4.8-10.8) 01/20/24 18:31 RBC 4.59 M/uL (4.20-5.40) 01/20/24 18:31 Hgb 11.4 g/dl (12.0-16.0) L 01/20/24 18:31 POC Hgb 12.9 g/dl (12.0-16.0) 01/20/24 18:47 Hct 37.8 % (37.0-47.0) 01/20/24 18:31 POC Hct 38 % (37-47) 01/20/24 18:47 MCV 82.4 fL (80.0-100.0) 01/20/24 18:31 MCH 24.8 pg (25.0-34.0) L 01/20/24 18:31 MCHC 30.2 g/dL (32.0-36.0) L 01/20/24 18:31 RDW Std Deviation 76.3 fL (36.4-46.3) H 01/20/24 18:31 RDW Coeff of Dionne 26.2 % (11.5-14.5) H 01/20/24 18:31 Plt Count 362 K/uL (130-400) 01/20/24 18:31 MPV 9.6 fL (9.4-12.4) 01/20/24 18:31 Immature Gran % (Auto) 0.5 % 01/20/24 18:31 Neut % (Auto) 58.2 % 01/20/24 18:31 Lymph % (Auto) 24.8 % 01/20/24 18:31 Smyth % (Auto) 7.7 % 01/20/24 18:31 Eos % (Auto) 7.3 % 01/20/24 18:31 Baso % (Auto) 1.5 % 01/20/24 18:31 Neut # (Auto) 4.25 K/uL (1.40-6.50) 01/20/24 18:31 Lymph # (Auto) 1.81 K/uL (1.20-3.40) 01/20/24 18:31 Smyth # (Auto) 0.56 K/uL (0.11-0.59) 01/20/24 18:31 Eos # (Auto) 0.53 K/uL (0.00-0.50) H 01/20/24 18:31 Baso # (Auto) 0.11 K/uL (0.00-0.20) 01/20/24 18:31 Immature Gran # (Auto) 0.04 K/uL (0.01-0.20) 01/20/24 18:31 Anisocytosis Present 01/20/24 18:31 PT 21.6 Seconds (9.0-12.0) H 01/20/24 18:31 INR 2.1 (0.9-1.1) H 01/20/24 18:31 APTT 32 Seconds (21-31) H 01/20/24 18:31 PTT Ratio 1.2 01/20/24 18:31 POC Sodium 142 mmol/L (135-144) 01/20/24 18:47 Sodium 140 mmol/L (136-145) 01/20/24 18:31 POC Potassium 4.1 mmol/L (3.3-5.0) 01/20/24 18:47 Potassium 4.1 mmol/L (3.5-5.1) 01/20/24 18:31 POC Chloride 108 mmol/L (101-112) 01/20/24 18:47 Chloride 107 mmol/L (98-107) 01/20/24 18:31 Carbon Dioxide 22 mmol/L (21-32) 01/20/24 18:31 POC Total CO2 20 mmol/L (24-31) L 01/20/24 18:47 Anion Gap 11 (3-11) 01/20/24 18:31 POC Anion Gap 19.0 mmol/L (16-25) 01/20/24 18:47 POC BUN 5 mg/dl (7-18) L 01/20/24 18:47 BUN 8 mg/dl (6-23) 01/20/24 18:31 Creatinine 0.73 mg/dl (0.6-1.2) 01/20/24 18:31 POC Creatinine 1.1 mg/dl (0.6-1.3) 01/20/24 18:47 Est Cr Clr Drug Dosing 133.4 ml/min 01/20/24 18:31 Est GFR ( Amer) 118.6 ml/min 01/20/24 18:31 Est GFR (Non-Af Amer) 102.3 ml/min 01/20/24 18:31 BUN/Creatinine Ratio 11.0 (10-20) 01/20/24 18:31 Glucose 154 mg/dl (70-99(Fasting)) H 01/20/24 18:31 POC Glucose (other) 147 mg/dl (70-99) H 01/20/24 18:47 Calcium 8.9 mg/dl (8.6-10.3) 01/20/24 18:31 POC Ioniz Calcium [place] 1.10 mmol/l (1.12-1.32) L 01/20/24 18:47 Total Bilirubin 0.2 mg/dl (0.2-1.0) 01/20/24 18:31 AST 23 U/L (13-39) 01/20/24 18:31 ALT 25 U/L (7-52) 01/20/24 18:31 Alkaline Phosphatase 90 U/L (34-104) 01/20/24 18:31 Troponin I High Sens 4.2 pg/ml (0-14) 01/20/24 18:31 B-Natriuretic Peptide 52 pg/ml (0-100) 01/20/24 18:31 Total Protein 6.8 gm/dl (6.0-8.3) 01/20/24 18:31 Albumin 3.9 gm/dl (3.4-5.0) 01/20/24 18:31 Globulin 2.9 gm/dl (2.5-4.0) 01/20/24 18:31 Albumin/Globulin Ratio 1.3 (0.9-2) 01/20/24 18:31 Adenovirus (PCR) Not Detected (NotDetected) 01/20/24 18:31 B. pertussis DNA (PCR) Not Detected (NotDetected) 01/20/24 18:31 B.parapertussis DNA PCR Not Detected (NotDetected) 01/20/24 18:31 C. pneumoniae DNA (PCR) Not Detected (NotDetected) 01/20/24 18:31 Coronavirus OC43 (PCR) Not Detected (NotDetected) 01/20/24 18:31 Coronavirus HKU1 (PCR) Not Detected (NotDetected) 01/20/24 18:31 Coronavirus 229E (PCR) Not Detected (NotDetected) 01/20/24 18:31 SARS-CoV-2 (PCR) Not Detected (NotDetected) 01/20/24 18:31 Coronavirus NL63 (PCR) Not Detected (NotDetected) 01/20/24 18:31 Human Metapneumovir PCR Not Detected (NotDetected) 01/20/24 18:31 Influenza Type A (PCR) Not Detected (NotDetected) 01/20/24 18:31 Influenza Type B (PCR) Not Detected (NotDetected) 01/20/24 18:31 M. pneumoniae (PCR) Not Detected (NotDetected) 01/20/24 18:31 Parainfluenza 1 (PCR) Not Detected (NotDetected) 01/20/24 18:31 Parainfluenza 2 (PCR) Not Detected (NotDetected) 01/20/24 18:31 Parainfluenza 3 (PCR) Not Detected (NotDetected) 01/20/24 18:31 Parainfluenza 4 (PCR) Not Detected (NotDetected) 01/20/24 18:31 RSV (PCR) Not Detected (NotDetected) 01/20/24 18:31 Entero/Rhino (PCR) Not Detected (NotDetected) 01/20/24 18:31 Impressions Chest CTA 01/20/24 18:32 Exam(s): CTA CHEST IV Amt: 116 ml optiray 320 EXAM: CT Angiography Chest With Intravenous Contrast CLINICAL HISTORY: Reason for exam: recent thrombectomy for saddle, worsening SOB. TECHNIQUE: Axial computed tomographic angiography images of the chest with intravenous contrast. CTDI is 39.5 mGy and DLP is 887.2 mGy-cm. Automated exposure control was utilized for the study. A dose lowering technique was utilized adhering to the principles of ALARA. MIP reconstructed images were created and reviewed. COMPARISON: January 06, 2024 FINDINGS: Pulmonary arteries: The pulmonary arterial tree is well opacified with contrast. The previously seen pulmonary emboli are considerably smaller than on the previous examination with small amount of residual thrombus in branch points of the lower lobe pulmonary artery branches bilaterally. The previously seen saddle embolus is no longer present. Aorta: No acute findings. No thoracic aortic aneurysm. Lungs: There is a central bronchial wall thickening in both lungs suggesting bronchitis and scattered areas of linear and reticular airspace infiltrate in the right upper lobe and right lower lobe suspicious for pneumonia which is new. No mass. Pleural space: Unremarkable. No significant effusion. No pneumothorax. Heart: The RV/LV ratio is within normal limits measuring 0.95, improved since previous. No significant pericardial effusion. Bones/joints: Mild degenerative changes in the spine. No acute fracture or subluxation. Soft tissues: Unremarkable. Lymph nodes: Unremarkable. No enlarged lymph nodes. IMPRESSION: 1. The pulmonary arterial tree is well opacified with contrast. The previously seen pulmonary emboli are considerably smaller than on the previous examination with small amount of residual thrombus in branch points of the lower lobe pulmonary artery branches bilaterally. The previously seen saddle embolus is no longer present. 2. There is a central bronchial wall thickening in both lungs suggesting bronchitis and scattered areas of linear and reticular airspace infiltrate in the right upper lobe and right lower lobe suspicious for pneumonia which is new. 3. The RV/LV ratio is within normal limits measuring 0.95, improved since previous. Previous gastric bypass surgery. Electronically signed by: Vahe Hernandez MD 01/20/24 20:45 PM Diagnostic Findings EKG as per my interpretation : Rate 100, NSR, normal axis, T wave abnormalities anteroseptal leads
[2024-01-20] MEDS ORDERED: LORazepam 0.5 MG TAB PO PRN (21:49)
[2024-01-20] MEDS ORDERED: oxyCODONE HCL IR 5 MG TAB (IMMEDIATE RELEASE) PO PRN (21:49)
[2024-01-20 21:56] LABS: Magnesium 1.9 mg/dl (1.7-2.4)
[2024-01-20 22:15] LABS: Estimated Average Glucose 100 mg/dl; Hemoglobin A1C 5.1 % (4.5-5.6)
[2024-01-20] MEDS: PIPERACILLIN/TAZOBACTAM 4.5 GM/100 ML BAG IV ONE (22:44)
[2024-01-20] MEDS: ALBUT/IPRATROP 3MG/0.5MG NEB 3 ML VIAL NEB STA (22:44)
[2024-01-21] MEDS: DOXYCYCLINE HYCLATE 100 MG in DEXTROSE 5% MINI-B 100 ML IV STA (00:21)
[2024-01-21] MEDS: PANTOprazole 40 MG TAB PO SCH (03:33)
[2024-01-21] MEDS: PIPERACILLIN/TAZOBACTAM 4.5 GM in DEXTROSE 5% MINI-B 100 ML IV SCH (06:03)
[2024-01-21 06:30] LABS: Calcium 8.1 mg/dl (8.6-10.3); Creatinine Clr Calc Pharmacy 126.7 ml/min; Est GFR (African American) 111.2 ml/min; Est GFR (Non-African American) 95.9 ml/min; Potassium 4.5 mmol/L (3.5-5.1)
[2024-01-21 06:40] LABS: Basophils # (auto) 0.08 K/uL (0.00-0.20); Basophils % (auto) 1.2 %; Eosinophils # (auto) 0.28 K/uL (0.00-0.50); Eosinophils % (auto) 4.2 %; Hematocrit (blood only) 31.6 % (37.0-47.0); Hemoglobin 9.5 g/dl (12.0-16.0); INR 3.1 (0.9-1.1); Immature Granulocytes # (auto) 0.03 K/uL (0.01-0.20); Immature Granulocytes % (auto) 0.5 %; Lymphocytes # (auto) 0.91 K/uL (1.20-3.40); Lymphocytes % (auto) 13.8 %; Mean Corpuscular Hemoglobin 25.1 pg (25.0-34.0); Mean Corpuscular Hgb Conc 30.1 g/dL (32.0-36.0); Mean Corpuscular Volume 83.4 fL (80.0-100.0); Mean Platelet Volume 9.7 fL (9.4-12.4); Monocytes # (auto) 0.59 K/uL (0.11-0.59); Neutrophils % (auto) 71.3 %; Platelet Count 278 K/uL (130-400); RDW Coefficient of Variation 26.3 % (11.5-14.5); RDW Standard Deviation 75.9 fL (36.4-46.3); Red Blood Count 3.79 M/uL (4.20-5.40); White Blood Count 6.59 K/ul (4.8-10.8)
[2024-01-21 07:15] LABS: Anisocytosis Present
[2024-01-21] MEDS: IPRATROPIUM BROMIDE NEB SOLN 0.02% 0.5MG/2.5ML VIAL INH SCH (07:29)
[2024-01-21] MEDS: LEVALBUTEROL 1.25 MG/3 ML NEB NEB SCH (07:29)
[2024-01-21] MEDS: ACETAMINOPHEN 325 MG TAB PO PRN (08:01)
[2024-01-21] MEDS: DOXYCYCLINE HYCLATE 100 MG CAP PO SCH (09:02)
[2024-01-21] MEDS: SERTRALINE HCL 50 MG TABLET PO SCH (09:02)
[2024-01-21] MEDS: FOLIC ACID 1 MG TAB PO SCH (09:03)
[2024-01-21] MEDS: CYANOCOBALAMIN (B-12) 500 MCG TABLET PO SCH (09:03)
[2024-01-21] MEDS: SACCHAROMYCES BOULARDII 250 MG CAP PO SCH (09:26)
--- NOTE | 2024-01-21 10:32 | Hospitalist Progress Note ---
Date of Service January 21, 2024 Assessment & Plan (1) HCAP (healthcare-associated pneumonia): Plan This is a 43 yr old F w/ hx of Crohns disease and recent hx of Saddle PE s/p embolectomy, cor pulmonale on warfarin who presented to ED on 01/19 with worsening sob and cough. She was diagnosed with HAP and started on IV antibiotics. Hospital acquired Pneumonia Acute Bronchitis pt admitted to medical no oxygen requirement, sx improvement continue schedule nebs IV Zosyn, oral doxy, probiotic MRSA swab negative --chest CTA with RUL/RLL opacities concerning for new PNA and bronchial wall thickening consistent with bronchitis S/P Saddle PE with thrombectomy at [facility] 2 weeks ago Cor pulmonale CTA showing improvement in PE and resolution of saddle on warfarin, INR supratherapeutic at 3.1, hold warfarin this evening INR in a.m.; home dose is 5mg duncan// and 7.5mg all other days will need formal hypercoagulable work up at OP Iron deficiency anemia received venofer during previous admission continue oral iron follows with GI and plans for endoscopy in april continue PPI, hgb stable Subcutaenous hematoma from subcu injections RLQ of abd, no tx indicated healing Hx of crohns disease [facility], currently not on any immunomodulators to undergo endoscopy in april Hypocalcemia repeat calcium in a.m. along with vit d start daily calc + vit d supplement Rheumatoid arthritis currently not on tx stable DVT ppx: warfarin FULL CODE PCP: Dr. Richard Harris Dispo: admitted to med/surg, continue IV antibiotics with anticipated discharge to home in the next 1-2 days. A total of 51 minutes was spent coordinating, documenting, and providing care for this patient excluding time spent in the performance of separately billed services. This included personally viewing all current laboratories and imaging studies, medication reconciliation, outpatient chart review, and discussion with specialists. Admission and Anticipated Discharge Date Admission Date: January 20, 2024 Supervising Physician Co-Signing Physician Notes I have seen and discussed the case with the collaborating advanced practitioner. I agree with the above PN I have reviewed and confirmed the patients medical history, the findings on physical examination, and the patients diagnosis and treatment plan with Yesenia CHAUHAN and agree with the information documented. I have reviewed the advanced practitioner's documentation, and I agree with, and take responsibility for the plan of care Subjective This is a 43 yr old F w/ hx of Crohns disease and recent hx of Saddle PE s/p embolectomy, cor pulmonale on warfarin who presented to ED on 01/19 with worsening sob and cough. She was diagnosed with HAP and started on IV antibiotics. She states she feels better this morning. She feels cough is less. She does not feel SOB at rest. She is not having a pleuritic pain. SHe denies f/c/s, chest pain, hemoptysis, n/v/d, abd pain. Nurse at bedside Tyrone has no concerns. States pt complained of DELUNA and APAP was administered. She reports bruising and a lump to her R side of abdomen. No pain associated with this. She is wondering if this is from the procedure? Review of Systems Review of Systems: All systems reviewed & are unremarkable except as noted in HPI & below Physical Exam Physical Exam: Gen: WD/WN, NAD, A&O x3 HEENT: Normocephalic, atraumatic, conjunctivae moist, sclerae anicteric, mucous membranes moist. Lung: Clear to Auscultation bilaterally, scant insp wheeze b/l upper lobes, no rales/rhonchi Heart: Regular rate, regular rhythm, no murmurs, rubs, or gallops Abdomen: Soft, NT, ND +BS x 4 + RLQ Ecchymosis with subcutaneous hematoma from previous subcu inj Extremities: No edema Skin: Warm, no rash, negative turgor. Results & Data Results & Data Vital Signs (Past 12 Hours) Vital Signs Temp Pulse Pulse Pulse Resp BP BP 01/21/24 08:34 01/21/24 07:58 36.6 C 78 18 01/21/24 07:30 63 15 01/20/24 23:30 01/20/24 23:30 36.5 C 73 18 137/83 01/20/24 22:31 86 20 144/89 H BP Pulse Ox O2 Del Method FiO2 01/21/24 08:34 Room Air 01/21/24 07:58 122/78 95 Room Air 01/21/24 07:30 96 Room Air 0 01/20/24 23:30 Room Air 01/20/24 23:30 97 Room Air 01/20/24 22:31 98 Laboratory Results I have independently reviewed and interpreted patient's labs, cbc, bmp, a1c Medications Administered Current Inpatient Medications Acetaminophen (Acetaminophen 325 Mg Tab) 650 mg PO Q4H PRN PRN Reason: pain/fever Stop: 02/20/24 00:03 Last Admin: 01/21/24 08:01 Dose: 650 mg Cyanocobalamin (Cyanocobalamin (B-12) 500 Mcg Tablet) 500 mcg PO QAM [facility] Stop: 02/20/24 08:59 Last Admin: 01/21/24 09:03 Dose: 500 mcg Doxycycline Hyclate (Doxycycline Hyclate 100 Mg Cap) 100 mg PO BID [facility] Stop: 01/28/24 08:59 Last Admin: 01/21/24 09:02 Dose: 100 mg Ferrous Sulfate (Ferrous Sulfate 325 Mg Tab) 325 mg PO DAILY@1200 [place] Stop: 02/20/24 11:59 Folic Acid (Folic Acid 1 Mg Tab) 1 mg PO QAM [facility] Stop: 02/20/24 08:59 Last Admin: 01/21/24 09:03 Dose: 1 mg Piperacillin Sod/Tazobactam (Sod 4.5 gm/ Dextrose) 100 mls @ 25 mls/hr IV Q8H [facility]; Protocol Stop: 01/28/24 05:59 Last Admin: 01/21/24 06:03 Dose: 25 mls/hr Promethazine HCl 12.5 mg/ (Sodium Chloride) 50.5 mls @ 202 mls/hr IV Q6H PRN PRN Reason: Nausea And Vomiting Stop: 02/19/24 21:48 Ipratropium [place] (Ipratropium [place] Neb Soln 0.02% 0.5mg/2.5ml Vial) 0.5 mg INH QIDR [facility] Stop: 02/20/24 06:59 Last Admin: 01/21/24 07:29 Dose: 0.5 mg Levalbuterol HCl (Levalbuterol 1.25 Mg/3 Ml Neb) 1.25 mg NEB QIDR [facility] Stop: 02/20/24 06:59 Last Admin: 01/21/24 07:29 Dose: 1.25 mg Lorazepam (Lorazepam 0.5 Mg Tab) 0.5 mg PO TID PRN PRN Reason: Anxiety Stop: 02/19/24 21:48 Oxycodone HCl (Oxycodone Hcl Ir 5 Mg Tab (Immediate Release)) 5 mg PO Q4H PRN PRN Reason: Pain Stop: 02/03/24 21:48 Pantoprazole Sodium (Pantoprazole 40 Mg Tab) 40 mg PO BID [facility] Stop: 02/20/24 00:03 Last Admin: 01/21/24 09:03 Dose: 40 mg Saccharomyces Boulardii (Saccharomyces Boulardii 250 Mg Cap) 250 mg PO DAILY [facility] Stop: 02/20/24 08:59 Last Admin: 01/21/24 09:26 Dose: 250 mg Sertraline HCl (Sertraline Hcl 50 Mg Tablet) 50 mg PO QAM [facility] Stop: 02/20/24 08:59 Last Admin: 01/21/24 09:02 Dose: 50 mg
[2024-01-21] MEDS: FERROUS SULFATE 325 MG TAB PO SCH (12:46)
[2024-01-21] MEDS: PROMETHAZINE HCL 12.5 MG in SODIUM CHLORIDE 0.9% 50 ML IV PRN (13:29)
[2024-01-22 06:32] LABS: Basophils # (auto) 0.08 K/uL (0.00-0.20); Basophils % (auto) 1.4 %; Eosinophils # (auto) 0.65 K/uL (0.00-0.50); Eosinophils % (auto) 11.2 %; Hematocrit (blood only) 29.3 % (37.0-47.0); Hemoglobin 9.2 g/dl (12.0-16.0); Immature Granulocytes # (auto) 0.02 K/uL (0.01-0.20); Immature Granulocytes % (auto) 0.3 %; Lymphocytes # (auto) 0.87 K/uL (1.20-3.40); Mean Corpuscular Hemoglobin 25.5 pg (25.0-34.0); Mean Corpuscular Hgb Conc 31.4 g/dL (32.0-36.0); Mean Corpuscular Volume 81.2 fL (80.0-100.0); Mean Platelet Volume 9.4 fL (9.4-12.4); Monocytes # (auto) 0.52 K/uL (0.11-0.59); Neutrophils # (auto) 3.65 K/uL (1.40-6.50); Neutrophils % (auto) 63.1 %; Platelet Count 261 K/uL (130-400); RDW Coefficient of Variation 25.5 % (11.5-14.5); RDW Standard Deviation 73.6 fL (36.4-46.3); Red Blood Count 3.61 M/uL (4.20-5.40); White Blood Count 5.79 K/ul (4.8-10.8)
[2024-01-22 06:48] LABS: BUN Creatinine Ratio 10.4 (10-20); Calcium 8.2 mg/dl (8.6-10.3); Creatinine Clr Calc Pharmacy 126.7 ml/min; Est GFR (African American) 111.2 ml/min; Est GFR (Non-African American) 95.9 ml/min; Potassium 4.2 mmol/L (3.5-5.1)
[2024-01-22 06:49] LABS: Prothrombin Time 20.4 Seconds (9.0-12.0)
--- NOTE | 2024-01-22 06:53 | Electrocardiogram Report ---
Test Reason : Blood Pressure : / mmHG Vent. Rate : 099 BPM Atrial Rate : 099 BPM P-R Int : 124 ms QRS Dur : 084 ms QT Int : 356 ms P-R-T Axes : 050 061 029 degrees QTc Int : 456 ms Normal sinus rhythm Cannot rule out Anterior infarct , age undetermined Nonspecific T wave abnormality Abnormal ECG When compared with ECG of 06-JAN-2024 16:13, Incomplete right bundle branch block is no longer Present Nonspecific T wave abnormality has replaced inverted T waves in Anterior leads Confirmed by Gerardo Green ([id number]) on 01/22/2024 6:53:09 AM Referred By: REFERRED SELF Confirmed By:Gerardo Green
[2024-01-22 06:57] LABS: Anisocytosis Present; Polychromasia 1+
[2024-01-22] MEDS: CALCIUM 600MG + VIT D 400 IU TAB PO SCH (08:05)
[2024-01-22] MEDS: BENZONATATE 100 MG CAPSULE PO SCH (08:58)
[2024-01-22] MEDS: guaiFENesin/DEXTROM SYRUP 100MG/10MG 5ML UDC PO PRN (09:17)
[2024-01-22] MEDS: predniSONE 20 MG TAB PO SCH (12:55)
[2024-01-22] MEDS: ALBUTEROL HFA 8 GM INHALER INH PRN (13:23)
--- NOTE | 2024-01-22 13:41 | Hospitalist Progress Note ---
Date of Service January 22, 2024 Assessment & Plan (1) HCAP (healthcare-associated pneumonia): Plan This is a 43 yr old F w/ hx of Crohns disease and recent hx of Saddle PE s/p embolectomy, cor pulmonale on warfarin who presented to ED on 01/19 with worsening sob and cough. She was diagnosed with HAP and started on IV antibiotics. Hospital acquired Pneumonia Acute Bronchitis pt admitted to med surg no oxygen requirement Added on several things today including albuterol inhaler, Tessalon Perle, Robitussin DM cough syrup as well as prednisone 40 mg daily to see if this improves her symptoms with continued cough continue schedule nebs IV Zosyn, oral doxy, probiotic - will wean to oral abx as tolerated MRSA swab negative Sputum culture is pending - growing light normal jania, follow --chest CTA with RUL/RLL opacities concerning for new PNA and bronchial wall thickening consistent with bronchitis S/P Saddle PE with thrombectomy at [facility] [place] , diagnosed on 01/06/24 Cor pulmonale CTA showing improvement in PE and resolution of saddle on warfarin, INR 2.9, will give coumadin 5 mg this evening, was held on 01/20 INR in a.m.; home dose is 5mg duncan// and 7.5mg all other days will need formal hypercoagulable work up at OP Hx of UGIBleed with Norovirus/E.coli with previous hospitalization here from 12/22 - 12/24/23 Crohns Disease History of allergic reaction to Remicade and Humira. Currently not on any medication since last 1 and half year per patient. follows isaac DREW, currently not on any immunomodulators to undergo endoscopy in april Iron deficiency anemia received venofer during previous admission secondary to GIB as above placed on oral iron this admission- pt has vomited now twice after ingestion with this here- will switch to IV venofer follows with GI and plans for endoscopy in april continue PPI, hgb stable Subcutaenous hematoma from subcu injections RLQ of abd, no tx indicated healing Hypocalcemia repeat calcium in a.m. along with vit d-- Vit D level 10 start daily calc + vit d supplement, add Vit D2 1250 mg po weekly Rheumatoid arthritis currently not on tx stable DVT ppx: warfarin FULL CODE PCP: Dr. Richard Harris Dispo: admitted to med/surg, continue IV antibiotics with anticipated discharge to home in the next 24 hrs A total of 47 minutes was spent coordinating, documenting, and providing care for this patient excluding time spent in the performance of separately billed services. This included personally viewing all current laboratories and imaging studies, medication reconciliation, outpatient chart review, and discussion with specialists. Admission and Anticipated Discharge Date Admission Date: January 20, 2024 Supervising Physician Co-Signing Physician Notes I have seen and discussed the case with the collaborating advanced practitioner. I agree with the above PN. I have reviewed and confirmed the patients medical history, the findings on physical examination, and the patients diagnosis and treatment plan with Carole CHAUHAN and agree with the information documented. Ms Yarbrough is a 43 year old woman with history of recent PE admitted for concern of health care associated pneumonia. Patient without purulent sputum and negative procal with negative sputum culture. Imaging c/w bronchitis. Starting small pred burst. Likely dispo tomorrow I spent a total of 25 minutes coordinating, documenting, and providing care for this patient excluding time spent in the performance of separately billed services. All of the aforementioned completed outside of collaborating with the assigned advanced practitioner for a full treatment plan. I have reviewed the advanced practitioner's documentation, and I agree with, and take responsibility for the plan of care Subjective Patient reports that she is coughing much more today and feels a soreness in her chest, nonproductive mostly, occasionally brings up sputum. Has a headache today and does not normally get these. Feels slightly worse than yesterday. She is tolerating oral intake without difficulty but notes that she did vomit after taking iron supplementation yesterday. Today after lunch nurse informs me that she vomited a small amount again after taking iron today. Patient lives at home, cares for 7-year-old, currently going through a divorce. Her parents are caring for her son while she is here in the hospital. Revisited her this afternoon and still does not feel much better. 10 point ROS reviewed and otherwise negative. Physical Exam Physical Exam: General: awake, alert, no apparent distress, obese white female, BMI 35.6 Head: Normocephalic, atraumatic ENT: PERRL, EOMI, no pharyngeal exudate, mucous membranes moist Chest: Coarse breath sounds throughout, no wheeze or rhonchi, on room air, dry cough Cardiac: Regular rate and rhythm, no murmur, no JVD, normal peripheral pulses, good capillary refill Abdominal: NABS x 4 quadrants, soft, nondistended, nontender to palpation, no rebound or guarding Extremities: Normal inspection, no peripheral edema or erythema, calfs nontender to palpation Psych: Normal mood and affect Neuro: AAO x 3, strength intact bilaterally and rated 5/5, no motor deficits, speech is clear, no peripheral sensory deficits Results & Data Results & Data Vital Signs (Past 12 Hours) Vital Signs Temp Pulse Pulse Resp BP Pulse Ox O2 Del Method 01/22/24 10:28 68 16 98 Room Air 01/22/24 07:26 Room Air 01/22/24 07:14 36.6 C 63 16 103/70 100 Room Air 01/22/24 06:59 59 L 16 96 Room Air 01/22/24 06:18 61 16 112/68 98 Room Air Laboratory Results 01/21/24 Unknown Gram Stain - Final Sputum, Expectorated Sputum Culture - Preliminary Light normal jania present, final report to follow. 01/22/24 06:07 WBC 5.79 RBC 3.61 L Hgb 9.2 L Hct 29.3 L MCV 81.2 MCH 25.5 MCHC 31.4 L RDW Std Deviation 73.6 H RDW Coeff of Dionne 25.5 H Plt Count 261 MPV 9.4 Immature Gran % (Auto) 0.3 Neut % (Auto) 63.1 Lymph % (Auto) 15.0 [place] % (Auto) 9.0 Eos % (Auto) 11.2 Baso % (Auto) 1.4 Neut # (Auto) 3.65 Lymph # (Auto) 0.87 L [place] # (Auto) 0.52 Eos # (Auto) 0.65 H Baso # (Auto) 0.08 Immature Gran # (Auto) 0.02 Polychromasia 1+ Anisocytosis Present PT 20.4 H INR 2.0 H Sodium 140 Potassium 4.2 Chloride 110 H Carbon Dioxide 24 Anion Gap 6 BUN 8 Creatinine 0.77 Est Cr Clr Drug Dosing 126.7 Est GFR ( Amer) 111.2 Est GFR (Non-Af Amer) 95.9 BUN/Creatinine Ratio 10.4 Glucose 90 Calcium 8.2 L Ionized Calcium 1.17 25-OH Vitamin D Total 10.3 L
[2024-01-22] MEDS: ERGOCALCIFEROL 1250 MCG (50,000 UNITS) CAP PO SCH (16:49)
[2024-01-22] MEDS: WARFARIN SOD 5 MG TAB PO ONE (16:49)
[2024-01-22] MEDS: IRON SUCROSE 300 MG in SODIUM CHLORIDE 0.9% 250 ML IV ONE (17:45)
[2024-01-23 06:36] LABS: INR 1.3 (0.9-1.1); Prothrombin Time 14.2 Seconds (9.0-12.0)
[2024-01-23 07:29] VITALS: O2SAT 99
[2024-01-23 10:20] VITALS: TEMP 97.5
[2024-01-23 11:05] VITALS: PULSE 83; RESP 16
[2024-01-23] MEDS: ENOXAPARIN INJ 120 MG/0.8 ML SYR SQ SCH (11:29)
[2024-01-23 11:38] VITALS: BP 127/79
--- NOTE | 2024-01-23 11:39 | Discharge Summary ---
Date of Service January 23, 2024 Admission HPI Per Admitting Provider History obtained from patient, family, and records. Medical history significant for cor pulmonale secondary to recent saddle PE with LE clots status post thrombectomy on Coumadin, IBD, rheumatoid arthritis, NAFLD, history gastric bypass, chronic anemia (baseline hemoglobin of 10-11), past tobacco abuse. Two [facility] admissions this month. Recent confinement 2 weeks ago for saddle PE with RV strain with bilateral LE v enous clots in the setting of recurrent UGIB. Patient transferred to [facility] [place] where she was confined from January 06 to 2023. Patient underwent thrombectomy. Discharged on Lovenox Coumadin course. Outpatient hematology and GI follow-up recommended. A few days following discharge from [facility] [place], patient noted junky cough symptoms later productive of greenish sputum. Denies aspiration. Not sure about sick contacts given recent hospital admissions. Denies abdominal pain or recent bleeding episodes. Worsening shortness of breath today. Ceftriaxone azithromycin administered at the ER. 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 Admission Exam Per Admitting Provider GENERAL: Comfortable, pleasant, obese, no respiratory distress SKIN: Normal color, warm HEENT: [place] palpebral conjunctivae, no ptosis, moist buccal mucosa NECK : Supple, no tenderness CHEST : Decreased breath sounds, expiratory wheezes on the right, no tenderness HEART : RRR, no obvious murmurs ABDOMEN: Some distention, no tenderness EXTREMITIES : Minimal LE swelling, no tenderness, no other conspicuous deformities noted NEUROLOGIC : Coherent, no facial asymmetry, no other gross focality Principal Diagnosis Hospital Associated pneumonia and Acute bronchitis Discharge Exam General: awake, alert, no apparent distress, obese white female, BMI 35.6 Head: Normocephalic, atraumatic ENT: PERRL, EOMI, no pharyngeal exudate, mucous membranes moist Chest: Clear breath sounds, no wheeze or rhonchi, on room air, occasional dry cough Cardiac: Regular rate and rhythm, no murmur, no JVD, normal peripheral pulses, good capillary refill Abdominal: NABS x 4 quadrants, soft, nondistended, nontender to palpation, no rebound or guarding Extremities: Normal inspection, no peripheral edema or erythema, calfs nontender to palpation Psych: Normal mood and affect Neuro: AAO x 3, strength intact bilaterally and rated 5/5, no motor deficits, speech is clear, no peripheral sensory deficits Discharge Data Allergies Allergy/AdvReac Type Severity Reaction Status Date / Time infliximab [From Remicade] Allergy Severe Anaphylaxis Verified 01/20/24 20:16 adalimumab [From Humira] Allergy Intermediate LOCALIZED Verified 01/20/24 20:16 SWELLING AT INJECTION SITE Consultations 01/20/24 21:08 ED Decision to Admit Stat Ordered Studies 01/20/24 18:32 CT angio chest PE protocol Stat Hospital Course (1) HCAP (healthcare-associated pneumonia): Plan This is a 43 yr old F w/ hx of Crohns disease and recent hx of Saddle PE s/p embolectomy, cor pulmonale on warfarin who presented to ED on 01/19 with worsening sob and cough. She was diagnosed with HAP and started on IV antibiotics. Hospital acquired Pneumonia Acute Bronchitis pt admitted to med surg no oxygen requirement Added on several things 01/21 including albuterol inhaler, Tessalon Perle, Robitussin DM cough syrup as well as prednisone 40 mg daily- sx much improved Albuterol inhaler rx at dc no need for nebs IV Zosyn, oral doxy, probiotic while in hospital - cont doxycycline x 3 more days to complete a 7 day course. MRSA swab negative Sputum culture is pending -moderate normal jania final --chest CTA with RUL/RLL opacities concerning for new PNA and bronchial wall thickening consistent with bronchitis S/P Saddle PE with thrombectomy at [facility] [place] , diagnosed on 01/06/24 Cor pulmonale CTA showing improvement in PE and resolution of saddle on warfarin, INR 1.3 on 01/22 - placed on lovenox x 3 days to bridge since is subtherapeutic today. Continue home dose coumadin 5mg duncan// and 7.5mg all other daysCoumadin was held on 01/20 due to supratherapeutic level INR in 3 days on dc, . will need formal hypercoagulable work up at OP Hx of UGIBleed with Norovirus/E.coli with previous hospitalization here from 12/22 - 12/24/23 Crohns Disease History of allergic reaction to Remicade and Humira. Currently not on any medication since last 1 and half year per patient. follows [facility], currently not on any immunomodulators to undergo endoscopy in april, follow up scheduled on 02/15 with GI. Iron deficiency anemia received venofer during previous admission secondary to GIB as above placed on oral iron this admission- pt has vomited now twice after ingestion with this here- will switch to IV venofer x 1 dose here. PCP to follow. follows with GI and plans for endoscopy in april continue PPI, hgb stable Subcutaenous hematoma from subcu injections RLQ of abd, no tx indicated healing Hypocalcemia repeat calcium in a.m. along with vit d-- Vit D level 10 start daily calc + vit d supplement, add Vit D2 1250 mg po weekly Rheumatoid arthritis currently not on tx stable DVT ppx: warfarin FULL CODE PCP: Dr. Richard Reeves Dispo: admitted to med/surg, continue IV antibiotics with anticipated discharge to home in the next 24 hrs Total Time Total Time Spent Total Time Spent (In Minutes): 40 Discharge Plan Discharge Items Patient Disposition: Home - Self-Care Reason For Visit: HCAP Discharge Diagnosis: Acute Bronchitis Condition on Discharge: Good Activity: Resume your previous activity Activity Comment: Advance activity as tolerated Lifting: Gradually increase as tolerated Bathing: No limitations Sexual Activity: When tolerated Exercise/Sports: Gradually increase as tolerated Driving/Machine Use: No limitations Weightbearing: Full weightbearing Non-emergency contact: Primary Care Provider, Licensed Mental Health Counselor and Emt Paramedic Call non-emergency contact if: you have any medication questions, your symptoms worsen, your pain is not controlled and your temperature is above 101 Follow-up/Referrals: Richard Reeves M.D. [Primary Care Provider] - 01/26/24 9:00 am Diet: Regular Ambulatory Orders: Prothrombin Time INR (Routine) Timeframe: 3 Days Location: Determined by Patient Ordered By: Betina Santos Attending Provider Instructions: You were admitted to [facility] due to worsening shortness of breath and diagnosed with hospital associated pneumonia and acute bronchitis. During your stay here you were treated with supportive care, medications including antibiotics, supportive care and steroids and your symptoms improved. You INR on the day of discharge was 1.3, which was subtherapeutic, and so you are being placed on lovenox injections to cover you for the next 3 days. You will continue taking coumadin dosing as previously prescribed during this time. Recheck INR to be done within 3 days. A script has been provided for you. Medications: Continue taking you medications as prescribed 1. Doxycycline 100 mg twice daily for 3 more days (finish on 01/25) to complete a 7 day course. 2. Prednisone 40 mg daily, continue this x 3 (finish on 01/25) more days to finish burst treatment 3. Albuterol inhaler - use every 4-6 hours as needed for shortness of breath 4. Lovenox injection: Take 100 mg injection twice daily, preferably ever 12 hours for 3 days. Continue coumadin like normal during this. Recheck INR in 3 days 5. Probiotic has been prescribed while you are taking the antibiotic + 1 week time 6. Calcium + Vit D supplementation daily 7. You can also use Robitussin DM which contains mucinex in a cough syrup over the counter(OTC). This will also contain a cough suppressant called dextromethorphan which will help with your symptoms. Mucinex can be taken as a capsule- obtain this OTC, generic is named guaifenesin. You can continue this capsule of guaifenesin 600 mg twice daily for 3 more days. Appointments: Follow up with PCP within 1 week, 01/25 at 9:00am with Dr. Reeves Pulmonary Medicine: 01/27 at 1:00pm with Dr. Walter [facility]ocardiogram at [facility] : 02/10 at 7:15am Gastroenterology: 02/15 at 1:00pm with LISET Cueva Pending Studies at Discharge: No Stand-Alone Forms: My [facility] [employer], Smoking Cessation Medications and DC Order Prescriptions: New Caltrate 600-D Plus Minerals 600 mg calcium- 800 unit-50 mg Tablet 1 tab PO DAILY Qty: 30 0RF Saccharomyces boulardii [Florastor] 250 mg Capsule 250 mg PO DAILY 3 Days Qty: 3 0RF enoxaparin 100 mg/mL syringe 100 mg subcut BID 5 Days Qty: 10 0RF albuterol sulfate [Ventolin HFA] 90 mcg/actuation Hfa Aerosol Inhaler 2 puff inhalation QID PRN (Reason: bronchospasm) 14 Days Qty: 6.7 0RF doxycycline hyclate 100 mg Capsule 100 mg PO BID Qty: 7 0RF prednisone 20 mg tablet 40 mg PO DAILY 3 Days Qty: 6 0RF Continued sertraline 50 mg tablet 50 mg PO QAM vitamin E 268 mg (400 unit) Capsule 268 mg PO DAILY warfarin 5 mg Tablet See Rx Instructions .ROUTE .COMPLEX Rx Instructions: Take 5mg on Sun/Tues/Thurs and 7.5mg all other days. pantoprazole 40 mg Tablet,Delayed Release (Dr/Ec) 40 mg PO BID Qty: 60 0RF cyanocobalamin (vitamin B-12) 500 mcg Tablet 500 mcg PO QAM Qty: 30 0RF folic acid 1 mg Tablet 1 mg PO QAM Qty: 30 0RF Discontinued enoxaparin [Lovenox] 30 mg/0.3 mL Syringe 0 mg SUBCUT DAILY PRN (Reason: INR Results) Rx Instructions: Per patient, she was instructed to use this only if her INR is a certain level. Doesn't remember strength at this date/time. ferrous sulfate 325 mg (65 mg iron) tablet 325 mg PO DAILY Qty: 30 0RF Discharge Orders: Discharge Order (Routine); Ordered 01/23/24 Ordered By: Betina Lam Admission Data Admit Date/Time: 01/20/24 21:49 Attending Provider: Ara Iglesias Admit Provider: Timbo Mcpherson Primary Care Provider: Richard Reeves Other Providers: Timbo Mcpherson Other Interventions: Discharge Summary Assessment (RN) Last Done: 01/23/24 11:37 Supervising Physician Co-Signing Physician Notes I have seen and discussed the case with the collaborating advanced practitioner. I agree with the above DS. I have reviewed and confirmed the patients medical history, the findings on physical examination, and the patients diagnosis and treatment plan with Carole CHAUHAN and agree with the information documented. Ms Yarbrough is a 43 year old woman with history of recent PE admitted for concern of health care associated pneumonia. Patient without purulent sputum and negative procal with negative sputum culture. Imaging c/w bronchitis. Starting small pred burst. Finish course of doxy. Albuterol prn. Patient agreeable to plan. Lovenox bridge given recent acute pe. I spent a total of 25 minutes coordinating, documenting, and providing care for this patient excluding time spent in the performance of separately billed services. All of the aforementioned completed outside of collaborating with the assigned advanced practitioner for a full treatment plan. I have reviewed the advanced practitioner's documentation, and I agree with, and take responsibility for the plan of care
[2024-01-23] MEDS ORDERED: WARFARIN SOD 7.5 MG TAB PO ONE (16:00)
== END 2024-01-23 13:08 | disposition home or self-care (01) | DRG 194 ==
LOC: ED 18:01 → 3E 21:49
DX: Z86.711 Personal history of pulmonary embolism; R79.1 Abnormal coagulation profile; K58.9 Irritable bowel syndrome, unspecified; D50.9 Iron deficiency anemia, unspecified; Z79.899 Other long term (current) drug therapy; Y95 Nosocomial condition; Z79.01 Long term (current) use of anticoagulants; E66.9 Obesity, unspecified; Z79.52 Long term (current) use of systemic steroids; Z68.35 Body mass index [BMI] 35.0-35.9, adult; M06.9 Rheumatoid arthritis, unspecified; J20.9 Acute bronchitis, unspecified; K50.90 Crohn's disease, unspecified, without complications; Z88.8 Allergy status to other drugs, medicaments and biological substances; Z98.84 Bariatric surgery status; E83.51 Hypocalcemia; J18.9 Pneumonia, unspecified organism; Z11.52 Encounter for screening for COVID-19

== ENCOUNTER 2024-10-07 13:42 | Inpatient (IN) ==
[2024-10-07 14:27] LABS: Basophils # (auto) 0.06 K/uL (0.00-0.20); Eosinophils # (auto) 0.05 K/uL (0.00-0.50); Eosinophils % (auto) 0.8 %; Hematocrit (blood only) 36.4 % (37.0-47.0); Hemoglobin 12.3 g/dl (12.0-16.0); Immature Granulocytes # (auto) 0.02 K/uL (0.01-0.20); Immature Granulocytes % (auto) 0.3 %; Lymphocytes # (auto) 0.67 K/uL (1.20-3.40); Lymphocytes % (auto) 11.2 %; Mean Corpuscular Hemoglobin 34.6 pg (25.0-34.0); Mean Corpuscular Hgb Conc 33.8 g/dL (32.0-36.0); Mean Corpuscular Volume 102.2 fL (80.0-100.0); Mean Platelet Volume 9.8 fL (9.4-12.4); Monocytes # (auto) 0.75 K/uL (0.11-0.59); Monocytes % (auto) 12.6 %; Neutrophils # (auto) 4.41 K/uL (1.40-6.50); Neutrophils % (auto) 74.1 %; Platelet Count 278 K/uL (130-400); RDW Coefficient of Variation 17.2 % (11.5-14.5); Red Blood Count 3.56 M/uL (4.20-5.40); White Blood Count 5.96 K/ul (4.8-10.8)
[2024-10-07 14:45] LABS: Anion Gap 9 (3-11); Bilirubin,Total 1.2 mg/dl (0.2-1.0); Calcium 8.6 mg/dl (8.6-10.3); Carbon Dioxide 24 mmol/L (21-32); Chloride 101 mmol/L (98-107); Potassium 3.9 mmol/L (3.5-5.1); Sodium 134 mmol/L (136-145)
[2024-10-07 14:51] LABS: Alanine Aminotransferase 58 U/L (7-52); Albumin Globulin Ratio 1.8 (0.9-2); Alkaline Phosphatase 119 U/L (34-104); Aspartate Aminotransferase 105 U/L (13-39); BUN Creatinine Ratio 4.3 (10-20); Blood Urea Nitrogen 3 mg/dl (6-23); Globulin 2.2 gm/dl (2.5-4.0); Glucose 108 mg/dl (70-99(Fasting)); Total Protein 6.2 gm/dl (6.0-8.3)
[2024-10-07 14:55] LABS: Partial Thromboplastin Ratio 3.1
[2024-10-07 14:59] LABS: Troponin I High Sensitivity < 2.3 pg/ml (0-14)
--- NOTE | 2024-10-07 15:07 | XRay Report ---
XR chest 1V portable CLINICAL HISTORY: Chest pain, nonspecific COMPARISON STUDY: None FINDINGS: Single view portable chest demonstrates no acute cardiopulmonary process. There is no airsp renata opacity, atelectasis, or pneumothorax. Lung volumes are low with no mediastinal shift. The heart and pulmonary vascularity are unremarkable. IMPRESSION: No acute process ACT 112: Negative or not required by law. Electronically signed by: Shannon Flowers M.D. 10/07/2024 3:06 PM
[2024-10-07 15:30] LABS: INR > 9.5 (0.9-1.1); Partial Thromboplastin Time 84 Seconds (21-31); Prothrombin Time > 90.0 Seconds (9.0-12.0)
[2024-10-07] MEDS: OPTIRAY 320 100ml IV ONE (15:32)
--- NOTE | 2024-10-07 15:34 | Emergency Department Note ---
Impression & Plan Supratherapeutic INR, Hematoma of left buttock ED Provider Note Diagnosis: Supratherapeutic INR, left buttock hematoma Disposition: Admission CHIEF COMPLAINT: Elevated INR HPI: Patient is a 44-year-old female presenting with complaint of elevated INR as an outpatient. Patient states she had a blood work taken yesterday called today with an INR of 13. Patient was instructed to go to the emergency room. Patient states she has been experiencing a headache and then having bruising to her arms. Patient states she noticed some bruising to her left flank region. Patient denies any trauma. Patient states this feels similar to when her INR was elevated a few years ago. Patient states history of pulmonary embolisms. Patient denies any bleeding from her gums in her stool no vaginal bleeding or blood in urine. PAST MEDICAL HISTORY: See Below PAST SURGICAL HISTORY: See Below SOCIAL HISTORY: See Below HOME MEDICATIONS: See Below ALLERGIES: See Below VITALS: See Below PHYSICAL EXAMINATION: GENERAL: Well appearing, well nourished, NAD, non-toxic. EYE EXAM: Normal conjunctiva. OROPHARYNX: Moist mucus membranes. Grossly normal dentition. NECK: Supple, LUNGS: Clear to auscultation. Normal chest wall mechanics. HEART: NSR ABDOMEN: Abdomen soft, non-tender, normo-active bowel sounds, no masses, no rebound or guarding BACK: No CVA TTP. SKIN: Ecchymosis left flank, contusion left wrist UPPER EXTREMITIES: Upper extremities are grossly normal LOWER EXTREMITIES: Grossly normal, no edema. NEURO EXAM: A&O x3,, 5 out of 5 muscle strength upper and lower extremities bilaterally, Intact sensation upper and lower extremities bilaterally PSYCH: Cooperative MEDICAL DECISION MAKING: History obtained from: Patient ER Course: Patient 44-year-old female presenting with complaint of elevated INR. 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 Patient having headache today and ecchymosis at the top of the left gluteal region and flank region. Patient denies any trauma. Patient's hemoglobin and platelets are stable. Patient's INR above 10 today. Patient given vitamin K 10 mg. Patient having no active bleeding on CT of abdomen and pelvis 7 cm hematoma. Patient's case discussed with hematology as well as hospitalist service. Patient hemodynamically stable. Labs (independently interpreted) are significant for: INR above 10 Medications given: Vitamin K 10 mg Consultants: Hematology [facility], agrees with vitamin K 10 mg monitoring overnight requesting repeat INR 6 hours from time of vitamin K being given. 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 Vital Signs: reviewed and remarkable for: no significant abnormalities Past Med/Surg History Problem List (Updated 10/07/24 @ 16:54 by Wily Harding DO) Hematoma of left buttock (Acute) Supratherapeutic INR (Acute) HCAP (healthcare-associated pneumonia) MENDES (dyspnea on exertion) (Acute) Pulmonary emboli (Acute) Pneumonia (Acute) UGIB (upper gastrointestinal bleed) GI bleed Anemia (Acute) Acute GI bleeding (Acute) Diarrhea Encounter for pre-operative examination Crohns disease (Acute) Rheumatoid arthritis Surgical History History of dilatation and curettage x2 History of section x2 History of colonoscopy History of esophagogastroduodenoscopy (EGD) History of cholecystectomy History of tooth extraction History of wisdom tooth extraction History of tonsillectomy Family History Grandfather (Maternal) Family history of diabetes mellitus Grandfather (Paternal) Family history of diabetes mellitus Other No family history of adverse response to anesthesia Social History Smoking Status: Never smoker Second Hand Exposure: No; Do You Dip or Chew Tobacco: No; Hx Alcohol Use: No Hx Substance Use: No Preferred Language: Maltese Communication Ability: Effective Surgical Brace Maker Required: No Beliefs That Will Affect Care: None Current Living Situation: Family Current Living Situation Comment: lives in house with son Feels Safe at Home: Yes Assistive Devices: None Allergies Allergies Allergy/AdvReac Type Severity Reaction Status Date / Time infliximab [From Remicade] Allergy Severe Anaphylaxis Verified 01/20/24 20:16 adalimumab [From Humira] Allergy Intermediate LOCALIZED Verified 01/20/24 20:16 SWELLING AT INJECTION SITE Home Meds Home Medications Medication Instructions Recorded Confirmed sertraline 50 mg tablet 50 mg PO QAM 01/06/24 10/07/24 vitamin E 268 mg (400 unit) capsule 268 mg PO DAILY 01/06/24 01/20/24 warfarin 5 mg tablet See Rx Instructions .Route .COMPLEX 01/20/24 01/20/24 fluticasone propionate 115 2 puff inhalation [facility]HS 10/07/24 10/07/24 mcg-salmeterol 21 mcg/actuation HFA inhaler (Advair HFA) venlafaxine 75 mg capsule,extended 75 mg PO DAILY 10/07/24 10/07/24 release 24 hr Previous Rx's Medication Instructions Recorded cyanocobalamin (vitamin B-12) 500 500 mcg PO QAM #30 tabs 12/24/23 mcg tablet folic acid 1 mg tablet 1 mg PO QAM #30 tabs 12/24/23 pantoprazole 40 mg tablet,delayed 40 mg PO BID #60 tabs 12/24/23 release calcium 600 mg-D3 800 unit-mag11 1 tab PO DAILY #30 tabs 01/23/24 50 qz-zsfl-ohafyw-girish-s.borat tablet (Caltrate 600-D Plus Minerals) doxycycline hyclate 100 mg capsule 100 mg PO BID #7 caps 01/23/24 Results & Data (ED) Vital Signs Vital Signs - 24 hr 10/07/24 13:48 10/07/24 15:07 Temperature 36.9 C Temperature Source Temporal Artery Scan Pulse Rate 95 H 83 Pulse Strength Normal Respiratory Rate 16 Respiratory Effort / Characteristics Non-Labored Spontaneous Respiratory Depth Normal Respiratory Pattern Regular Blood Pressure 113/78 Blood Pressure Mean 89 Blood Pressure Position Sitting Pulse Oximetry 95 Oxygen Delivery Method Room Air Sepsis Recent Fever Within 48 Hours No Sepsis New/Unexplained Change in Mental Status No Sepsis Action Taken by Nursing No Action Required Laboratory Data 10/07/24 14:15 10/07/24 14:15 Lab Results 10/07/24 Range/Units 14:15 WBC 5.96 (4.8-10.8) K/ul RBC 3.56 L (4.20-5.40) M/uL Hgb 12.3 (12.0-16.0) g/dl Hct 36.4 L (37.0-47.0) % MCV 102.2 H (80.0-100.0) fL MCH 34.6 H (25.0-34.0) pg MCHC 33.8 (32.0-36.0) g/dL RDW Std Deviation 66.0 H (36.4-46.3) fL RDW Coeff of Dionne 17.2 H (11.5-14.5) % Plt Count 278 (130-400) K/uL MPV 9.8 (9.4-12.4) fL Immature Gran % (Auto) 0.3 % Neut % (Auto) 74.1 % Lymph % (Auto) 11.2 % [place] % (Auto) 12.6 % Eos % (Auto) 0.8 % Baso % (Auto) 1.0 % Neut # (Auto) 4.41 (1.40-6.50) K/uL Lymph # (Auto) 0.67 L (1.20-3.40) K/uL [place] # (Auto) 0.75 H (0.11-0.59) K/uL Eos # (Auto) 0.05 (0.00-0.50) K/uL Baso # (Auto) 0.06 (0.00-0.20) K/uL Immature Gran # (Auto) 0.02 (0.01-0.20) K/uL PT > 90.0 H (9.0-12.0) Seconds INR > 9.5 H* (0.9-1.1) APTT 84 H* (21-31) Seconds PTT Ratio 3.1 Sodium 134 L (136-145) mmol/L Potassium 3.9 (3.5-5.1) mmol/L Chloride 101 (98-107) mmol/L Carbon Dioxide 24 (21-32) mmol/L Anion Gap 9 (3-11) BUN 3 L (6-23) mg/dl Creatinine 0.69 (0.6-1.2) mg/dl Est Cr Clr Drug Dosing Not Reportable eGFR 111.05 BUN/Creatinine Ratio 4.3 L (10-20) Glucose 108 H (70-99(Fasting)) mg/dl Calcium 8.6 (8.6-10.3) mg/dl Total Bilirubin 1.2 H (0.2-1.0) mg/dl AST 105 H (13-39) U/L ALT 58 H (7-52) U/L Alkaline Phosphatase 119 H (34-104) U/L Troponin I High Sens < 2.3 (0-14) pg/ml Total Protein 6.2 (6.0-8.3) gm/dl Albumin 4.0 (3.4-5.0) gm/dl Globulin 2.2 L (2.5-4.0) gm/dl Albumin/Globulin Ratio 1.8 (0.9-2) Administered Medications Discontinued Medications Phytonadione 10 mg/ Dextrose 51 mls @ 102 mls/hr IV ONE ONE Stop: 10/07/24 15:53 Last Infusion: 10/07/24 16:26 Dose: Infused Documented By: Admin: 10/07/24 15:54 Dose: 102 mls/hr Documented By: BS Ioversol (Optiray 320 100ml) 93 ml IV ONCE ONE Stop: 10/07/24 15:33 Last Admin: 10/07/24 15:32 Dose: 93 ml Documented By: PLW Imaging Data Radiologist's Impression: Chest X-Ray 10/07/24 13:52 XR chest 1V portable CLINICAL HISTORY: Chest pain, nonspecific COMPARISON STUDY: None FINDINGS: Single view portable chest demonstrates no acute cardiopulmonary process. There is no airspace opacity, atelectasis, or pneumothorax. Lung volumes are low with no mediastinal shift. The heart and pulmonary vascularity are unremarkable. IMPRESSION: No acute process ACT 112: Negative or not required by law. Electronically signed by: Shannon Flowers M.D. 10/07/2024 3:06 PM Abdomen/Pelvis CT 10/07/24 15:[address] WITH IV CONTRAST CT DOSE: 2180 HISTORY: left flank ecchymosis, elevated INR TECHNIQUE: Multiaxial CT images of the abdomen and pelvis were performed following the IV administration of 90 cc of Optiray, A dose lowering technique was utilized adhering to the principles of ALARA. COMPARISON STUDY: 01/06/2024 FINDINGS: ABDOMEN: There is severe fatty liver. Gallbladder is surgically absent. Spleen, pancreas, and adrenal glands are unremarkable. Kidneys show no hydronephrosis or calculi. No abdominal aortic aneurysm. Stable operative changes at the stomach. Small fat-containing right ventral hernia is stable. Pelvis: Uterus and adnexa are grossly unremarkable. Urinary bladder is nondistended. There is mild retained stool. No bowel inflammation or obstruction. No enlarged adenopathy. There is an intramuscular hematoma within the left lateral gluteal musculature measuring up to 7 cm in greatest axial dimension. No evidence of active hemorrhage seen. There is a small possible sebaceous cyst lower left posterior lateral flank. Osseous structures: There is osteopenia. There are mild lumbar and hip degenerative changes. No acute fracture seen in the visualized osseous structures. IMPRESSION: 1. Small left gluteal intramuscular hematoma without evidence of acute hemorrhage. No underlying hip fracture seen. 2. No other acute findings seen. Otherwise as described. ACT 112: Negative or not required by law. The above report was generated using voice recognition software. It may contain grammatical, syntax or spelling errors. Electronically signed by: Robert Mckay M.D. 10/07/2024 3:[address] 10/07/24 15:23 CT head/brain wo con CLINICAL HISTORY: 44 years-old Female with headache, INR >10. Acute headache TECHNIQUE: Multiple axial CT images of the head were obtained without contrast. A dose lowering technique was utilized adhering to the principles of ALARA. CT DOSE: 2179.87 mGy.cm COMPARISON: 01/06/2024 FINDINGS: No acute intracranial hemorrhage, midline shift, intracranial mass, hydrocephalus, territorial ischemia or abnormal extra-axial collection. The calvarium is intact. Trace right mastoid effusion. Left mastoid air cells and paranasal sinuses appear clear. Unremarkable soft tissues and orbits. IMPRESSION: No acute intracranial abnormality. ACT 112: Negative or not required by law. The above report was generated using voice recognition software. It may contain grammatical, syntax or spelling errors. Electronically signed by: Kurt Gipson M.D. 10/07/2024 3:48 PM Discharge Plan Visit Data Chief Complaint: Abnormal Labs/Diagnostic Testing Stated Complaint: PE/BLOOD CLOTS, HIGH LABS ED Provider: Wily Harding Discharge Problem: Supratherapeutic INR, Hematoma of left buttock Forms Stand Alone Forms: My [facility] [employer] Prescriptions Prescriptions: No Action sertraline 50 mg tablet 50 mg PO QAM vitamin E 268 mg (400 unit) Capsule 268 mg PO DAILY warfarin 5 mg Tablet See Rx Instructions .ROUTE .COMPLEX Rx Instructions: Take 5mg on Sun/Tues/Thurs and 7.5mg all other days. Caltrate 600-D Plus Minerals 600 mg calcium- 800 unit-50 mg Tablet 1 tab PO DAILY Qty: 30 0RF doxycycline hyclate 100 mg Capsule 100 mg PO BID Qty: 7 0RF venlafaxine 75 mg capsule,extended release 24hr 75 mg PO DAILY fluticasone propion-salmeterol [Advair HFA] 115-21 mcg/actuation HFA aerosol inhaler 2 puff INHALATION AMHS pantoprazole 40 mg Tablet,Delayed Release (Dr/Ec) 40 mg PO BID Qty: 60 0RF cyanocobalamin (vitamin B-12) 500 mcg Tablet 500 mcg PO QAM Qty: 30 0RF folic acid 1 mg Tablet 1 mg PO QAM Qty: 30 0RF Referrals Referrals: Richard Reeves M.D. [Primary Care Provider] -
--- NOTE | 2024-10-07 15:49 | CT Scan Report ---
CT head/brain wo con CLINICAL HISTORY: 44 years-old Female with headache, INR >10. Acute headache TECHNIQUE: Multiple axial CT images of the head were obtained without contrast. A dose lowering tech nique was utilized adhering to the principles of ALARA. CT DOSE: 2179.87 mGy.cm COMPARISON: 01/06/2024 FINDINGS: No acute intracranial hemorrhage, midline shift, intracranial mass, hydrocephalus, territorial ischem ia or abnormal extra-axial collection. The calvarium is intact. Trace right mastoid effusion. Left mastoid air cells and paranasal sinuses appear clear. Unremarkable soft tissues and orbits. IMPRESSION: No acute intracranial abnormality. ACT 112: Negative or not required by law. The above report was generated using voice recognition software. It may contain grammatical, syntax o r spelling errors. Electronically signed by: Kurt Gipson M.D. 10/07/2024 3:48 PM
[2024-10-07] MEDS: PHYTONADIONE 10 MG in DEXTROSE 5% 50 ML IV ONE (15:54)
--- NOTE | 2024-10-07 16:01 | CT Scan Report ---
ABDOMEN AND PELVIS CT WITH IV CONTRAST CT DOSE: 2180 HISTORY: left flank ecchymosis, elevated INR TECHNIQUE: Multiaxial CT images of the abdomen and pelvis were performed following the IV administrat ion of 90 cc of Optiray, A dose lowering technique was utilized adhering to the principles of ALARA. COMPARISON STUDY: 01/06/2024 FINDINGS: ABDOMEN: There is severe fatty liver. Gallbladder is surgically absent. Spleen, pancreas, and adrenal glands are unremarkable. Kidneys show no hydronephrosis or calculi. No abdominal aortic aneurysm. St able operative changes at the stomach. Small fat-containing right ventral hernia is stable. Pelvis: Uterus and adnexa are grossly unremarkable. Urinary bladder is nondistended. There is mild re tained stool. No bowel inflammation or obstruction. No enlarged adenopathy. There is an intramuscular hematoma within the left lateral gluteal musculature measuring up to 7 cm in greatest axial dimensio n. No evidence of active hemorrhage seen. There is a small possible sebaceous cyst lower left posteri or lateral flank. Osseous structures: There is osteopenia. There are mild lumbar and hip degenerative changes. No acute fracture seen in the visualized osseous structures. IMPRESSION: 1. Small left gluteal intramuscular hematoma without evidence of acute hemorrhage. No underlying hip fracture seen. 2. No other acute findings seen. Otherwise as described. ACT 112: Negative or not required by law. The above report was generated using voice recognition software. It may contain grammatical, syntax o r spelling errors. Electronically signed by: Robert Mckay M.D. 10/07/2024 3:59 PM
--- NOTE | 2024-10-07 17:16 | Electrocardiogram Report ---
Test Reason : Blood Pressure : */* mmHG Vent. Rate : 76 BPM Atrial Rate : 76 BPM P-R Int : 130 ms QRS Dur : 98 ms QT Int : 376 ms P-R-T Axes : 43 56 38 degrees QTcB Int : 423 ms Normal sinus rhythm Possible Left atrial enlargement Low voltage QRS Borderline ECG When compared with ECG of 20-Jan-2024 18:24, Nonspecific T wave abnormality, improved in Anterior leads Confirmed by Salvador Pettit ([id number]) on 10/07/2024 5:16:17 PM Referred By: Confirmed By: Salvador Pettit
[2024-10-07] MEDS ORDERED: POLYETHYLENE (MIRALAX) 17 GM PACK PO PRN (17:18)
[2024-10-07] MEDS ORDERED: ONDANSETRON INJ 2 MG/ML 2 ML VIAL IV PRN (17:18)
[2024-10-07] MEDS ORDERED: ALBUTEROL HFA 8 GM INHALER INH PRN (17:30)
--- NOTE | 2024-10-07 17:32 | History & Physical Report ---
Date of Service October 07, 2024 Assessment & Plan (1) Hematoma of left buttock: Plan Supratherapeutic INR Left gluteal hematoma Coagulopathy as a complication of supratherapeutic INR Patient presents at referral of Coumadin clinic due to elevated INR at 13.2, has left upper buttock bruise. Admitting CXR and CT head with no acute finding. Admitting CTAP with 7 cm left gluteal intramuscular hematoma. Admitting INR > 9.5 Fall precaution, ice compression. Status post 10 Mg IV vitamin K in the ED, repeat PT/INR at 11 PM. Orthopedic consult for gluteal hematoma. Other chronic medical conditions: Continue with home meds as ordered. DVT prophylaxis: Patient supratherapeutic currently. Full code History of Present Illness Chief Complaint: elevated INR Primary Care Provider: Richard Reeves 44-year-old lady with PMH of saddle PE, DVT BLE on Coumadin, Crohn's disease with rectal bleeding , rheumatoid arthritis was sent in at the referral of Coumadin clinic due to elevated INR of 13.2. Patient denies any fall or trauma but reported left thigh bruising about a week ago which improved and now has left upper buttock bruise which is not painful. Patient denies any fever/sore throat/cough/chest pain. Patient reports feeling tired and weak at legs. Patient denies any changes in the habit of her Coumadin intake or any drastic dietary changes. Patient reports taking 7.5 mg of Coumadin every other day along with 5 mg remaining 3 days of the week. Patient reports she takes Lovenox whenever her INR is less than 2.0. Per discussion with ED physician, they spoke with [facility] assayer helper who recommended IV vitamin K and repeat PT/INR at 6 hours zaki. PT/INR for 11 PM placed. Medications reviewed with the patient at bedside. Plan of care discussed with the patient in detail. Full code Allergies Allergy/AdvReac Type Severity Reaction Status Date / Time infliximab [From Remicade] Allergy Severe Anaphylaxis Verified 10/07/24 16:53 adalimumab [From Humira] Allergy Intermediate LOCALIZED Verified 10/07/24 16:53 SWELLING AT INJECTION SITE Home Medications Medication Instructions Recorded Confirmed Type cyanocobalamin (vitamin B-12) 500 500 mcg PO QAM #30 tabs 12/24/23 10/07/24 Rx mcg tablet folic acid 1 mg tablet 1 mg PO QAM #30 tabs 12/24/23 10/07/24 Rx pantoprazole 40 mg tablet,delayed 40 mg PO BID #60 tabs 12/24/23 10/07/24 Rx release vitamin E 268 mg (400 unit) capsule 268 mg PO DAILY 01/06/24 10/07/24 History warfarin 5 mg tablet See Rx Instructions .Route .COMPLEX 01/20/24 10/07/24 History calcium 600 mg-D3 800 unit-mag11 1 tab PO DAILY #30 tabs 01/23/24 10/07/24 Rx 50 ew-djwe-sfrfon-girish-s.borat tablet (Caltrate 600-D Plus Minerals) albuterol sulfate 90 mcg/actuation 2 puff inhalation QID PRN 10/07/24 10/07/24 History aerosol inhaler Bronchospasm enoxaparin 100 mg/mL subcutaneous 100 mg subcut AMHS PRN if INR is 10/07/24 10/07/24 History syringe low fluticasone propionate 115 2 puff inhalation AMHS 10/07/24 10/07/24 History mcg-salmeterol 21 mcg/actuation HFA inhaler (Advair HFA) venlafaxine 75 mg capsule,extended 75 mg PO DAILY 10/07/24 10/07/24 History release 24 hr Past Med/Surg History Problem List (Updated 10/07/24 @ 16:54 by Wily Harding DO) Hematoma of left buttock (Acute) Supratherapeutic INR (Acute) HCAP (healthcare-associated pneumonia) MENDES (dyspnea on exertion) (Acute) Pulmonary emboli (Acute) Pneumonia (Acute) UGIB (upper gastrointestinal bleed) GI bleed Anemia (Acute) Acute GI bleeding (Acute) Diarrhea Encounter for pre-operative examination Crohns disease (Acute) Rheumatoid arthritis Surgical History History of dilatation and curettage x2 History of section x2 History of colonoscopy History of esophagogastroduodenoscopy (EGD) History of cholecystectomy History of tooth extraction History of wisdom tooth extraction History of tonsillectomy Family History Grandfather (Maternal) Family history of diabetes mellitus Grandfather (Paternal) Family history of diabetes mellitus Other No family history of adverse response to anesthesia Social History Smoking Status: Never smoker Second Hand Exposure: No; Do You Dip or Chew Tobacco: No; Hx Alcohol Use: No Hx Substance Use: No Preferred Language: Nigerian Communication Ability: Effective Patient Access Coordinator Required: No Beliefs That Will Affect Care: None Current Living Situation: Family Current Living Situation Comment: lives in house with son Feels Safe at Home: Yes Assistive Devices: None Review of Systems Review of Systems: Negative otherwise mentioned in HPI. Physical Exam Physical Exam: GENERAL: Alert and oriented x3. NAD, on RA. HEENT: No pallor, no icterus. Pupils equal, round and reactive to light. Oral mucosa moist. NECK: No JVD, no neck masses. HEART: S1 and S2 heard. Regular rate and rhythm. No murmur, no gallop. RESPIRATORY SYSTEM: Normal AP diameter. No accessory muscle use. No wheezing, no crackles. ABDOMEN: Soft, bowel sounds present, nontender, no distention. CENTRAL NERVOUS SYSTEM: No facial droop. Speech is clear. Obeys simple commands. Moves extremities. EXTREMITIES: No edema, no erythema seen. Left upper buttock ecchymoses 10 x 7 cm in dimension, non tender. Results & Data Results & Data Vital Signs (Past 12 Hours) Vital Signs Temp Pulse Resp BP Pulse Ox O2 Del Method 10/07/24 15:07 83 10/07/24 13:48 36.9 C 95 H 16 113/78 95 Room Air
[2024-10-07] MEDS: PANTOprazole 40 MG TAB PO SCH (20:37)
[2024-10-07] MEDS: ACETAMINOPHEN 325 MG TAB PO PRN (20:37)
[2024-10-08 01:41] LABS: INR 2.1 (0.9-1.1); Prothrombin Time 21.6 Seconds (9.0-12.0)
--- NOTE | 2024-10-08 07:03 | Orthopedic Consultation ---
Date of Service October 08, 2024 Assessment & Plan (1) Hematoma of left buttock: At this time, no surgical intervention indicated. Her INR is beginning to stabilize. I do anticipate that this hematoma will resolve itself over the next few weeks. She may continue to be weightbearing as tolerated and range of m otion as tolerated in the left lower extremity. Would recommend ice to the sore area. Did also discuss compression, however it is quite difficult to compress this specific area. No orthopedic follow-up indicated at this time. Did encourage her to reach out with any questions or concerns. History of Present Illness Reason for Consultation: left gluteal hematoma Requesting Physician: . Attending Physician: Devonte Don MD Neelam is a 44-year-old female who was admitted to the hospital for a supratherapeutic INR as well as a left buttock/gluteal hematoma that was found on a CT of the abdomen pelvis. She did have outpatient blood work and was found to have an elevated INR was instructed to go to the emergency department. She states that she was having a headache and some bruising to her arms. She also noticed some bruising to her left flank region. She states that she does not have any falls, trauma or eliciting events over the last few weeks to months. She was consulted today due to the hematoma that was found on the CT. She does state that she has been attempting to weight-bear as tolerated. Does have some discomfort with weightbearing but has been able to get herself to the bathroom and back. She denies any numbness or tingling the left lower extremity. No other questions or concerns today. To note, her INR is stabilizing today. Allergies Allergy/AdvReac Type Severity Reaction Status Date / Time infliximab [From Remicade] Allergy Severe Anaphylaxis Verified 10/07/24 16:53 adalimumab [From Humira] Allergy Intermediate LOCALIZED Verified 10/07/24 16:53 SWELLING AT INJECTION SITE Home Medications Medication Instructions Recorded Confirmed Type cyanocobalamin (vitamin B-12) 500 500 mcg PO QAM #30 tabs 12/24/23 10/07/24 Rx mcg tablet folic acid 1 mg tablet 1 mg PO QAM #30 tabs 12/24/23 10/07/24 Rx pantoprazole 40 mg tablet,delayed 40 mg PO BID #60 tabs 12/24/23 10/07/24 Rx release vitamin E 268 mg (400 unit) capsule 268 mg PO DAILY 01/06/24 10/07/24 History warfarin 5 mg tablet See Rx Instructions .Route .COMPLEX 01/20/24 10/07/24 History calcium 600 mg-D3 800 unit-mag11 1 tab PO DAILY #30 tabs /08/1610/07/24 Rx 50 of-wfsy-bcscey-girish-s.borat tablet (Caltrate 600-D Plus Minerals) albuterol sulfate 90 mcg/actuation 2 puff inhalation QID PRN 10/07/24 10/07/24 History aerosol inhaler Bronchospasm enoxaparin 100 mg/mL subcutaneous 100 mg subcut AMHS PRN if INR is 10/07/24 10/07/24 History syringe low fluticasone propionate 115 2 puff inhalation AMHS 10/07/24 10/07/24 History mcg-salmeterol 21 mcg/actuation HFA inhaler (Advair HFA) venlafaxine 75 mg capsule,extended 75 mg PO DAILY 10/07/24 10/07/24 History release 24 hr Past Med/Surg History Problem List (Updated 10/07/24 @ 16:54 by Wily Harding DO) Hematoma of left buttock (Acute) Supratherapeutic INR (Acute) HCAP (healthcare-associated pneumonia) MENDES (dyspnea on exertion) (Acute) Pulmonary emboli (Acute) Pneumonia (Acute) UGIB (upper gastrointestinal bleed) GI bleed Anemia (Acute) Acute GI bleeding (Acute) Diarrhea Encounter for pre-operative examination Crohns disease (Acute) Rheumatoid arthritis Surgical History History of dilatation and curettage x2 History of section x2 History of colonoscopy History of esophagogastroduodenoscopy (EGD) History of cholecystectomy History of tooth extraction History of wisdom tooth extraction History of tonsillectomy Family History Grandfather (Maternal) Family history of diabetes mellitus Grandfather (Paternal) Family history of diabetes mellitus Other No family history of adverse response to anesthesia Social History Smoking Status: Never smoker Second Hand Exposure: No; Do You Dip or Chew Tobacco: No; Tobacco Cessation Education Requested by Patient: No Hx Alcohol Use: Yes Alcohol type: wine Hx Substance Use: No Preferred Language: Iraqi Communication Ability: Effective Putty Mixer And Applier Required: No Beliefs That Will Affect Care: None Current Living Situation: Family Current Living Situation Comment: lives in house with son Other Information That Helps Us Care for You: No Feels Safe at Home: Yes Safety Concerns: Feels Safe At This Time Assistive Devices: None Review of Systems All systems reviewed & are unremarkable except as noted in HPI & below. Physical Exam General: Alert and oriented. No acute distress. Constitutional WD/WN, vitals as above Musculoskeletal regarding the left lower extremity, she is slightly tender to the left lower lumbar area/lateral gluteal area. She has good range of motion of the left lower extremity including foot, ankle, knee and hip. She is weightbearing as tolerated with some weightbearing discomfort in the left lower extremity. Skin Does have spots of ecchymosis throughout her body, including her arms, legs and the left lower lumbar area/upper hip. Psychiatric A+Ox3, euthymic affect Results & Data Results & Data Laboratory Results . Abnormal lab results 10/07/24 10/07/24 Range/Units 14:15 22:55 RBC 3.56 L (4.20-5.40) M/uL Hct 36.4 L (37.0-47.0) % MCV 102.2 H (80.0-100.0) fL MCH 34.6 H (25.0-34.0) pg RDW Std Deviation 66.0 H (36.4-46.3) fL RDW Coeff of Dionne 17.2 H (11.5-14.5) % Lymph # (Auto) 0.67 L (1.20-3.40) K/uL [place] # (Auto) 0.75 H (0.11-0.59) K/uL PT > 90.0 H 21.6 H (9.0-12.0) Seconds INR > 9.5 H* 2.1 H (0.9-1.1) APTT 84 H* (21-31) Seconds Sodium 134 L (136-145) mmol/L BUN 3 L (6-23) mg/dl BUN/Creatinine Ratio 4.3 L (10-20) Glucose 108 H (70-99(Fasting)) mg/dl Total Bilirubin 1.2 H (0.2-1.0) mg/dl AST 105 H (13-39) U/L ALT 58 H (7-52) U/L Alkaline Phosphatase 119 H (34-104) U/L Globulin 2.2 L (2.5-4.0) gm/dl Diagnostic Findings CT abdomen/pelvis on 10/07/24 IMPRESSION: 1. Small left gluteal intramuscular hematoma without evidence of acute hemorrhage. No underlying hip fracture seen. 2. No other acute findings seen. Otherwise as described. PG Care Time/CCT Total # of Minutes Spent Total Time Spent with Patient: Total time spent is greater than 50% in coordination of care (as documented) at patient's floor/unit and/or counseling patient: Supervising Physician Co-Signing Physician Notes I independently saw the patient this afternoon. I reviewed the chart and all the imaging. I discussed the case with the PA and agree with the note in its entirety. The patient was seen at the bedside with her family. She still had pain about the hip. There was some ecchymosis as described in the note. She is neuro vastly intact. This should be nonoperative. It is probably best to wait 24 hours with that normal INR to allow clot stabilization before treating to a therapeutic level with warfarin. Would recommend considering starting warfarin tomorrow. Defer to medicine on this decision making. No surgery indicated for these types of hematomas. I explained to the patient that there is no advantage to surgery and it may put her at increased risk of complications from bleeding and infection. Coding Level of Care Code 89746 IN/OBS CONSULT LVL 3,45M Diagnoses Hematoma of left buttock S30.0XXA
[2024-10-08] MEDS: FOLIC ACID 1 MG TAB PO SCH (08:07)
[2024-10-08] MEDS: CALCIUM 600MG + VIT D 400 IU TAB PO SCH (08:07)
[2024-10-08] MEDS: FLUTICASONE/VILANTEROL 200/25MCG 14 PUFFS/INHALER INH SCH (08:07)
[2024-10-08] MEDS: CYANOCOBALAMIN (B-12) 500 MCG TABLET PO SCH (08:07)
[2024-10-08] MEDS: VENLAFAXINE HCL XR 75 MG CAPXR PO SCH (08:07)
[2024-10-08 08:55] LABS: Hematocrit (blood only) 32.2 % (37.0-47.0); Hemoglobin 10.6 g/dl (12.0-16.0); Mean Corpuscular Hemoglobin 33.8 pg (25.0-34.0); Mean Corpuscular Hgb Conc 32.9 g/dL (32.0-36.0); Mean Corpuscular Volume 102.5 fL (80.0-100.0); Platelet Count 215 K/uL (130-400); RDW Coefficient of Variation 17.4 % (11.5-14.5); RDW Standard Deviation 66.1 fL (36.4-46.3); Red Blood Count 3.14 M/uL (4.20-5.40); White Blood Count 3.77 K/ul (4.8-10.8)
[2024-10-08 09:15] LABS: BUN Creatinine Ratio 9.4 (10-20); Calcium 8.3 mg/dl (8.6-10.3); Phosphorus 3.3 mg/dl (2.5-4.9); Potassium 3.9 mmol/L (3.5-5.1)
[2024-10-08 09:36] LABS: INR 1.5 (0.9-1.1); Prothrombin Time 16.1 Seconds (9.0-12.0)
[2024-10-08] MEDS: SODIUM CHLORIDE 0.9% 1,000 ML IV SCH (10:48)
[2024-10-08 12:04] LABS: Albumin Level 3.2 gm/dl (3.4-5.0); Bilirubin,Total 2.8 mg/dl (0.2-1.0); Total Protein 5.1 gm/dl (6.0-8.3)
[2024-10-08] MEDS: OPTIRAY 320 125ml IV ONE (12:27)
--- NOTE | 2024-10-08 12:28 | Ultrasound Report ---
BILATERAL LOWER EXTREMITY VENOUS DOPPLER HISTORY: Acute pain and swelling of the right lower leg lower extremity pain, hx of dvt COMPARISON STUDY: 01/06/2024 FINDINGS: RIGHT-Thrombus is noted within one of the duplicated distal popliteal veins which appears occlusive. Additionally, nonocclusive thrombus is noted within the posterior tibial and peroneal veins. Findings are similar to mildly improved from prior. No definite acute DVT identified. Left-nonocclusive and partially occlusive thrombi within the posterior tibial and peroneal veins. No additional deep or superficial venous thrombi. Findings are similar to mildly improved from prior. No definite acute DVT identified. IMPRESSION: 1. Chronic appearing DVTs as above. 2. No definite acute DVT identified. ACT 112: Negative or not required by law. Electronically signed by: Kurt Gipson M.D. 10/08/2024 12:26 PM
--- NOTE | 2024-10-08 12:52 | CT Scan Report ---
CT angio chest PE protocol CT DOSE: 901.57 mGy.cm HISTORY: PE. TECHNIQUE: Multiple CTA images of the chest were obtained after the intravenous administration of 112 ml Optiray. Coronal and sagittal MIPS were obtained from the axial data set and were submitted for review. All measurements were obtained according to NASCET criteria. A dose lowering technique was u tilized adhering to the principles of ALARA. COMPARISON STUDY: 01/20/2024 FINDINGS: There is minimal atelectasis in the lung bases. There is no pulmonary consolidation, pleura l effusion, or pneumothorax. No enlarged adenopathy. No pericardial effusion. There is severe fatty l iver. No thoracic aortic dissection or aneurysm. No pericardial effusion. No pulmonary embolism. No a cute osseous findings. IMPRESSION: No pulmonary embolism or pneumonia seen. ACT 112: Negative or not required by law. The above report was generated using voice recognition software. It may contain grammatical, syntax o r spelling errors. Electronically signed by: Robert Mckay M.D. 10/08/2024 12:50 PM
--- NOTE | 2024-10-08 15:52 | Hospitalist Progress Note ---
Date of Service October 08, 2024 Assessment & Plan (1) Hematoma of left buttock: Plan Supratherapeutic INR Left gluteal hematoma Coagulopathy as a complication of supratherapeutic INR Patient presents at referral of Coumadin clinic due to elevated INR at 13.2, has left upper buttock bruise. Admitting CXR and CT head with no acute finding. Admitting CTAP with 7 cm left gluteal intramuscular hematoma. Admitting INR > 9.5 Fall precaution, ice compression. Status post 10 Mg IV vitamin K in the ED, repeat PT/INR at 11 PM. Orthopedic consult for gluteal hematoma. 10/08 CT angio chest: no PE Doppler US lower leg: no DVT Hg 12 --> 10 INR >9--> 1.5 discussed with Ortho, may resume anticoagulation tomorrow, no indication for surgical drainage of hematoma hematology consulted re: anticoagulation recommendation Other chronic medical conditions: Continue with home meds as ordered. DVT prophylaxis: coumadin on hold Full code plan of care discussed with patient in detail all questions answered she is understanding, agreeable, comfortable with the plan of care Admission and Anticipated Discharge Date Admission Date: October 07, 2024 Subjective ff up for gluteal hematoma, supratherapeutic INR, etc seen resting in bed,not in distress states she feels ok overall does report some dyspnea with exertion, no chest pain also BL lower leg discomfort no other signs of bleeding Review of Systems Review of Systems: all noted and negative except for above Physical Exam Physical Exam: General- oriented x 3, not in distress, speaks in sentences with no effort or accessory muscle use Eyes- anicteric Neck- no JVD Lungs- clear breath sounds bilaterally, no rales/wheezes Heart- normal rate, regular rhythm; no murmurs Abdomen- normal bowel sounds, nondistended, soft, nontender Extremities- no pretibial edema, no calf tenderness Neuro- alert, oriented x 3; no gross focal neurologic deficits Skin- warm & dry Results & Data Results & Data Vital Signs (Past 12 Hours) Vital Signs Temp Pulse Pulse Resp BP Pulse Ox O2 Del Method 10/08/24 15:19 36.6 C 64 16 115/75 97 Room Air 10/08/24 11:27 36.5 C 63 16 103/68 98 Room Air 10/08/24 10:56 Room Air 10/08/24 08:09 36.3 C L 69 16 106/69 98 Room Air 10/08/24 05:51 66 10/08/24 03:47 36.5 C 72 16 95/57 L 97 Room Air all noted and reviewed including below
--- NOTE | 2024-10-08 17:23 | Oncology Consultation ---
Date of Consultation October 08, 2024 History of Present Illness Attending Physician: Alexis Davis MD Allergies Allergy/AdvReac Type Severity Reaction Status Date / Time infliximab [From Remicade] Allergy Severe Anaphylaxis Verified 10/07/24 16:53 adalimumab [From Humira] Allergy Intermediate LOCALIZED Verified 10/07/24 16:53 SWELLING AT INJECTION SITE Home Medications Medication Instructions Recorded Confirmed Type cyanocobalamin (vitamin B-12) 500 500 mcg PO QAM #30 tabs 12/24/23 10/07/24 Rx mcg tablet folic acid 1 mg tablet 1 mg PO QAM #30 tabs 12/24/23 10/07/24 Rx pantoprazole 40 mg tablet,delayed 40 mg PO BID #60 tabs 12/24/23 10/07/24 Rx release vitamin E 268 mg (400 unit) capsule 268 mg PO DAILY 01/06/24 10/07/24 History calcium 600 mg-D3 800 unit-mag11 1 tab PO DAILY #30 tabs 01/23/24 10/07/24 Rx 50 du-oqys-niyttm-girish-s.borat tablet (Caltrate 600-D Plus Minerals) albuterol sulfate 90 mcg/actuation 2 puff inhalation QID PRN 10/07/24 10/07/24 History aerosol inhaler Bronchospasm fluticasone propionate 115 2 puff inhalation AMHS 10/07/24 10/07/24 History mcg-salmeterol 21 mcg/actuation HFA inhaler (Advair HFA) venlafaxine 75 mg capsule,extended 75 mg PO DAILY 10/07/24 10/07/24 History release 24 hr apixaban 5 mg tablet (Eliquis) 5 mg PO BID 30 days #60 tabs 10/10/24 Rx Patient History Surgical History History of dilatation and curettage x2 History of section x2 History of colonoscopy History of esophagogastroduodenoscopy (EGD) History of cholecystectomy History of tooth extraction History of wisdom tooth extraction History of tonsillectomy Family History Grandfather (Maternal) Family history of diabetes mellitus Grandfather (Paternal) Family history of diabetes mellitus Other No family history of adverse response to anesthesia Social History Smoking Status: Never smoker Second Hand Exposure: No; Do You Dip or Chew Tobacco: No; Hx Alcohol Use: Yes Alcohol type: wine Hx Substance Use: No Preferred Language: Northern Irish Communication Ability: Effective Insurance Premium Auditor Required: No Beliefs That Will Affect Care: None Current Living Situation: Family Current Living Situation Comment: lives in house with son Feels Safe at Home: Yes Assistive Devices: None Results & Data Vital Signs (Past 12 Hours) Vital Signs Temp Pulse Pulse Resp BP Pulse Ox O2 Del Method 10/08/24 15:19 36.6 C 64 16 115/75 97 Room Air 10/08/24 14:04 76 10/08/24 11:27 36.5 C 63 16 103/68 98 Room Air 10/08/24 10:56 Room Air 10/08/24 08:09 36.3 C L 69 16 106/69 98 Room Air 10/08/24 05:51 66
[2024-10-09 06:59] LABS: Basophils # (auto) 0.04 K/uL (0.00-0.20); Basophils % (auto) 1.3 %; Eosinophils # (auto) 0.08 K/uL (0.00-0.50); Eosinophils % (auto) 2.6 %; Hematocrit (blood only) 28.6 % (37.0-47.0); Hemoglobin 9.6 g/dl (12.0-16.0); Immature Granulocytes # (auto) 0.01 K/uL (0.01-0.20); Immature Granulocytes % (auto) 0.3 %; Lymphocytes # (auto) 0.74 K/uL (1.20-3.40); Lymphocytes % (auto) 23.9 %; Mean Corpuscular Hemoglobin 34.4 pg (25.0-34.0); Mean Corpuscular Hgb Conc 33.6 g/dL (32.0-36.0); Mean Corpuscular Volume 102.5 fL (80.0-100.0); Mean Platelet Volume 10.2 fL (9.4-12.4); Monocytes # (auto) 0.45 K/uL (0.11-0.59); Monocytes % (auto) 14.5 %; Neutrophils # (auto) 1.78 K/uL (1.40-6.50); Neutrophils % (auto) 57.4 %; Platelet Count 194 K/uL (130-400); RDW Coefficient of Variation 16.7 % (11.5-14.5); Red Blood Count 2.79 M/uL (4.20-5.40)
[2024-10-09 07:26] LABS: Albumin Level 2.8 gm/dl (3.4-5.0); BUN Creatinine Ratio 9.2 (10-20); Bilirubin Direct 0.7 mg/dl (0-0.2); Bilirubin,Total 1.7 mg/dl (0.2-1.0); Calcium 7.7 mg/dl (8.6-10.3); Creatinine Clr Calc Pharmacy 149.6 ml/min; Total Protein 4.7 gm/dl (6.0-8.3)
[2024-10-09 07:28] LABS: INR 1.4 (0.9-1.1); Prothrombin Time 15.1 Seconds (9.0-12.0)
--- NOTE | 2024-10-09 11:48 | CT Scan Report ---
Clinical History: Follow-up of left gluteal hematoma Technique: Axial computed tomography images were obtained of the abdomen and pelvis without intravenous contrast. Comparison is made to the prior CT dated 10/07/2024 Findings: There is diffuse fatty infiltration of the liver. The liver is enlarged measuring 22.2 cm craniocaudal. No definite liver mass lesion is seen on this noncontrast study. The gallbladder has been removed. No bile duct dilatation is noted. The spleen is of normal size. No focal splenic lesion is evident. The pancreas appears normal with no sign of acute or chronic pancreatitis and no mass lesion noted. The pancreatic duct is of normal caliber. The adrenal glands appear unremarkable. No renal or proximal ureteral calculi are seen. There is some residual contrast within the renal cortex bilaterally. There is no hydronephrosis or perinephric stranding. No definite renal mass lesion is identified. The aorta is of normal caliber. No abdominal adenopathy is seen. There is a small right paracentral ventral hernia in the right mid abdomen, containing only fat Postsurgical changes are seen of gastric bypass surgery. There is no sign of small bowel obstruction. The colon appears unremarkable. The appendix appears normal also. No free intraperitoneal fluid or air is identified. There is apparent dilute excreted contrast within the urinary bladder. No definite bladder mass lesion is evident. The iliac arteries are of normal caliber. No pelvic adenopathy is noted. There is mild bilateral lung base atelectasis. There has been interval decrease in enlargement of the anterior lateral aspect of the left gluteus medius muscle, likely due to improving intramuscular hemorrhage. No discrete measurable hematoma or other fluid collection is seen. No fracture is identified. No focal osseous lesion is seen Impression: 1. Apparent interval decrease in intramuscular hemorrhage within the left gluteus medius muscle 2. Unchanged diffuse fatty infiltration of the liver 3. Hepatomegaly 4. Small ventral hernia containing only fat Electronically signed by Des Voss 10-09-2024 11:48 AM
[2024-10-09 12:39] LABS: Hematocrit (blood only) 31.1 % (37.0-47.0); Hemoglobin 10.2 g/dl (12.0-16.0)
[2024-10-09] MEDS: APIXABAN 5 MG TABLET PO SCH (14:04)
--- NOTE | 2024-10-09 17:45 | Hospitalist Progress Note ---
Date of Service October 09, 2024 Assessment & Plan (1) Hematoma of left buttock: Plan Supratherapeutic INR Left gluteal hematoma Coagulopathy as a complication of supratherapeutic INR Patient presents at referral of Coumadin clinic due to elevated INR at 13.2, has left upper buttock bruise. Admitting CXR and CT head with no acute finding. Admitting CTAP with 7 cm left gluteal intramuscular hematoma. Admitting INR > 9.5 Fall precaution, ice compression. Status post 10 Mg IV vitamin K in the ED, repeat PT/INR at 11 PM. Orthopedic consult for gluteal hematoma. 10/08 CT angio chest: no PE Doppler US lower leg: no DVT Hg 12 --> 10 INR >9--> 1.5 discussed with Ortho, may resume anticoagulation tomorrow, no indication for surgical drainage of hematoma hematology consulted re: anticoagulation recommendation 10/09 repeat Hg 10.6--> 9.6 --> 10.[address]: 1. Apparent interval decrease in intramuscular hemorrhage within the left gluteus medius muscle 2. Unchanged diffuse fatty infiltration of the liver 3. Hepatomegaly 4. Small ventral hernia containing only fat discussed with Dr. Lancaster, recommend Eliquis 5mg BID, started today monitor closely Other chronic medical conditions: Continue with home meds as ordered. DVT prophylaxis: Eliquis Full code plan of care discussed with patient in detail all questions answered she is understanding, agreeable, comfortable with the plan of care Admission and Anticipated Discharge Date Admission Date: October 07, 2024 Subjective ff up for gluteal hematoma, etc seen resting in bed, comfortable feels fine overall L gluteal area feels better no other new symptoms Review of Systems Review of Systems: all noted and negative except for above Physical Exam Physical Exam: General- oriented x 3, not in distress, speaks in sentences with no effort or accessory muscle use Eyes- anicteric Neck- no JVD Lungs- clear breath sounds bilaterally, no rales/wheezes Heart- normal rate, regular rhythm; no murmurs Abdomen- normal bowel sounds, nondistended, soft, nontender Extremities- no pretibial edema, no calf tenderness Neuro- alert, oriented x 3; no gross focal neurologic deficits Skin- warm & dry Results & Data Results & Data Vital Signs (Past 12 Hours) Vital Signs Temp Pulse Pulse Resp BP Pulse Ox O2 Del Method 10/09/24 15:26 36.7 C 56 L 18 112/76 98 Room Air 10/09/24 13:00 72 10/09/24 11:44 36.4 C L 60 18 128/81 96 Room Air 10/09/24 07:19 36.7 C 53 L 18 112/77 98 Room Air all noted and reviewed including below
[2024-10-10] MEDS ORDERED: APIXABAN 5 MG TABLET PO SCH
[2024-10-10 04:00] VITALS: RESP 16
[2024-10-10 07:09] LABS: Albumin Level 2.9 gm/dl (3.4-5.0); Bilirubin Direct 0.5 mg/dl (0-0.2); Bilirubin,Total 1.4 mg/dl (0.2-1.0); INR 1.2 (0.9-1.1); Prothrombin Time 13.3 Seconds (9.0-12.0); Total Protein 4.9 gm/dl (6.0-8.3)
[2024-10-10 08:01] VITALS: BP 117/80; PULSE 53; TEMP 98.4; O2SAT 100
[2024-10-10 08:56] LABS: Basophils # (auto) 0.04 K/uL (0.00-0.20); Eosinophils # (auto) 0.11 K/uL (0.00-0.50); Eosinophils % (auto) 2.8 %; Hemoglobin 10.8 g/dl (12.0-16.0); Immature Granulocytes # (auto) 0.02 K/uL (0.01-0.20); Immature Granulocytes % (auto) 0.5 %; Lymphocytes % (auto) 20.2 %; Mean Corpuscular Hemoglobin 34.2 pg (25.0-34.0); Mean Corpuscular Hgb Conc 32.7 g/dL (32.0-36.0); Mean Corpuscular Volume 104.4 fL (80.0-100.0); Mean Platelet Volume 10.1 fL (9.4-12.4); Monocytes # (auto) 0.49 K/uL (0.11-0.59); Monocytes % (auto) 12.4 %; Neutrophils % (auto) 63.1 %; Platelet Count 226 K/uL (130-400); RDW Coefficient of Variation 16.6 % (11.5-14.5); RDW Standard Deviation 63.4 fL (36.4-46.3); Red Blood Count 3.16 M/uL (4.20-5.40); White Blood Count 3.96 K/ul (4.8-10.8)
[2024-10-10 09:12] LABS: BUN Creatinine Ratio 8.6 (10-20); Calcium 8.3 mg/dl (8.6-10.3); Creatinine Clr Calc Pharmacy 138.9 ml/min; Potassium 4.2 mmol/L (3.5-5.1)
--- NOTE | 2024-10-10 09:42 | Discharge Summary ---
Discharge Summary Date of Service October 10, 2024 Principal Dx & Hospital Course #1 = Principal Diagnosis (1) Hematoma of left buttock: Plan Left gluteal hematoma Supratherapeutic INR Coagulopathy as a complication of supratherapeutic INR Patient presents at referral of Coumadin clinic due to elevated INR at 13.2, has left upper buttock bruise. Admitting CXR and CT head with no acute finding. Admitting CTAP with 7 cm left gluteal intramuscular hematoma. Admitting INR > 9.5 Fall precaution, ice compression. Status post 10 Mg IV vitamin K in the ED, repeat PT/INR at 11 PM. Orthopedic consult for gluteal hematoma. 10/08 CT angio chest: no PE Doppler US lower le. Chronic appearing DVTs as above. 2. No definite acute DVT identified. Hg 12 --> 10 INR >9--> 1.5 discussed with Ortho, may resume anticoagulation tomorrow, no indication for surgical drainage of hematoma hematology consulted re: anticoagulation recommendation 10/09 repeat Hg 10.6--> 9.6 --> 10.[address]: 1. Apparent interval decrease in intramuscular hemorrhage within the left gluteus medius muscle 2. Unchanged diffuse fatty infiltration of the liver 3. Hepatomegaly 4. Small ventral hernia containing only fat discussed with Dr. Lancaster, recommend Eliquis 5mg BID, started today monitor closely 10/10 remains stable Left buttock pain improving No problems with ambulation hemoglobin remained stable around 10 discharged on Eliquis 5 mg twice daily Will update patient's regular hedis abstractor [place] Dr. Jenn Sears Severe fatty liver Hepatomegaly Seen on CT: There is diffuse fatty infiltration of the liver. The liver is enlarged measuring 22.2 cm craniocaudal. No definite liver mass lesion is seen on this noncontrast study. The gallbladder has been removed. No bile duct dilatation is noted. (+)mild bilirubin and AST elevation Further work up, management, and ff up as outpatient Please refer to full report in the Ordered Studies section Other chronic medical conditions Continue with home meds as ordered. DVT prophylaxis: Eliquis Full code plan of care discussed with patient in detail all questions answered she is understanding, agreeable, comfortable with the plan of care Notes For Next Care Provider needs further workup and management of severe fatty liver and hepatomegaly Medication Changes From Visit Coumadin discontinued Eliquis 5 mg twice daily started Admission HPI Per Admitting Provider 44-year-old lady with PMH of saddle PE, DVT BLE on Coumadin, Crohn's disease with rectal bleeding , rheumatoid arthritis was sent in at the referral of Coumadin clinic due to elevated INR of 13.2. Patient denies any fall or trauma but reported left thigh bruising about a week ago which improved and now has left upper buttock bruise which is not painful. Patient denies any fever/sore throat/cough/chest pain. Patient reports feeling tired and weak at legs. Patient denies any changes in the habit of her Coumadin intake or any drastic dietary changes. Patient reports taking 7.5 mg of Coumadin every other day along with 5 mg remaining 3 days of the week. Patient reports she takes Lovenox whenever her INR is less than 2.0. Per discussion with ED physician, they spoke with Desean hedis abstractor who recommended IV vitamin K and repeat PT/INR at 6 hours zaki. PT/INR for 11 PM placed. Medications reviewed with the patient at bedside. Plan of care discussed with the patient in detail. Full code Admission Exam Per Admitting Provider GENERAL: Alert and oriented x3. NAD, on RA. HEENT: No pallor, no icterus. Pupils equal, round and reactive to light. Oral mucosa moist. NECK: No JVD, no neck masses. HEART: S1 and S2 heard. Regular rate and rhythm. No murmur, no gallop. RESPIRATORY SYSTEM: Normal AP diameter. No accessory muscle use. No wheezing, no crackles. ABDOMEN: Soft, bowel sounds present, nontender, no distention. CENTRAL NERVOUS SYSTEM: No facial droop. Speech is clear. Obeys simple commands. Moves extremities. EXTREMITIES: No edema, no erythema seen. Left upper buttock ecchymoses 10 x 7 cm in dimension, non tender. Discharge Exam General- oriented x 3, not in distress, speaks in sentences with no effort or accessory muscle use Eyes- anicteric Neck- no JVD Lungs- clear breath sounds bilaterally, no rales/wheezes Heart- normal rate, regular rhythm; no murmurs Abdomen- normal bowel sounds, nondistended, soft, nontender Extremities- no pretibial edema, no calf tenderness Neuro- alert, oriented x 3; no gross focal neurologic deficits Skin- warm & dry Updated Medication List Medication Instructions Recorded Confirmed Type cyanocobalamin (vitamin B-12) 500 500 mcg PO QAM #30 tabs 12/24/23 10/07/24 Rx mcg tablet folic acid 1 mg tablet 1 mg PO QAM #30 tabs 12/24/23 10/07/24 Rx pantoprazole 40 mg tablet,delayed 40 mg PO BID #60 tabs 12/24/23 10/07/24 Rx release vitamin E 268 mg (400 unit) capsule 268 mg PO DAILY 01/06/24 10/07/24 History calcium 600 mg-D3 800 unit-mag11 1 tab PO DAILY #30 tabs 01/23/24 10/07/24 Rx 50 en-ncvq-lehwdy-girish-s.borat tablet (Caltrate 600-D Plus Minerals) albuterol sulfate 90 mcg/actuation 2 puff inhalation QID PRN 10/07/24 10/07/24 History aerosol inhaler Bronchospasm fluticasone propionate 115 2 puff inhalation AMHS 10/07/24 10/07/24 History mcg-salmeterol 21 mcg/actuation HFA inhaler (Advair HFA) venlafaxine 75 mg capsule,extended 75 mg PO DAILY 10/07/24 10/07/24 History release 24 hr apixaban 5 mg tablet (Eliquis) 5 mg PO BID 30 days #60 tabs 10/10/24 Rx Hospital Stay Data Consultations 10/07/24 17:18 Consult Orthopedic Surgery Routine 10/08/24 07:51 Consult Hematology Routine Diagnostic Imagining Performed Laboratory Results WBC 3.96 K/ul (4.8-10.8) L 10/10/24 08:41 RBC 3.16 M/uL (4.20-5.40) L 10/10/24 08:41 Hgb 10.8 g/dl (12.0-16.0) L 10/10/24 08:41 Hct 33.0 % (37.0-47.0) L 10/10/24 08:41 MCV 104.4 fL (80.0-100.0) H 10/10/24 08:41 MCH 34.2 pg (25.0-34.0) H 10/10/24 08:41 MCHC 32.7 g/dL (32.0-36.0) 10/10/24 08:41 RDW Std Deviation 63.4 fL (36.4-46.3) H 10/10/24 08:41 RDW Coeff of Dionne 16.6 % (11.5-14.5) H 10/10/24 08:41 Plt Count 226 K/uL (130-400) 10/10/24 08:41 MPV 10.1 fL (9.4-12.4) 10/10/24 08:41 Immature Gran % (Auto) 0.5 % 10/10/24 08:41 Neut % (Auto) 63.1 % 10/10/24 08:41 Lymph % (Auto) 20.2 % 10/10/24 08:41 [place] % (Auto) 12.4 % 10/10/24 08:41 Eos % (Auto) 2.8 % 10/10/24 08:41 Baso % (Auto) 1.0 % 10/10/24 08:41 Neut # (Auto) 2.50 K/uL (1.40-6.50) 10/10/24 08:41 Lymph # (Auto) 0.80 K/uL (1.20-3.40) L 10/10/24 08:41 [place] # (Auto) 0.49 K/uL (0.11-0.59) 10/10/24 08:41 Eos # (Auto) 0.11 K/uL (0.00-0.50) 10/10/24 08:41 Baso # (Auto) 0.04 K/uL (0.00-0.20) 10/10/24 08:41 Immature Gran # (Auto) 0.02 K/uL (0.01-0.20) 10/10/24 08:41 PT 13.3 Seconds (9.0-12.0) H 10/10/24 05:38 INR 1.2 (0.9-1.1) H 10/10/24 05:38 APTT 84 Seconds (21-31) H* 10/07/24 14:15 PTT Ratio 3.1 10/07/24 14:15 Sodium 136 mmol/L (136-145) 10/10/24 08:41 Potassium 4.2 mmol/L (3.5-5.1) 10/10/24 08:41 Chloride 104 mmol/L (98-107) 10/10/24 08:41 Carbon Dioxide 27 mmol/L (21-32) 10/10/24 08:41 Anion Gap 5 (3-11) 10/10/24 08:41 BUN 6 mg/dl (6-23) 10/10/24 08:41 Creatinine 0.70 mg/dl (0.6-1.2) 10/10/24 08:41 Est Cr Clr Drug Dosing 138.9 ml/min 10/10/24 08:41 eGFR 110.67 10/10/24 08:41 BUN/Creatinine Ratio 8.6 (10-20) L 10/10/24 08:41 Glucose 91 mg/dl (70-99(Fasting)) 10/10/24 08:41 Calcium 8.3 mg/dl (8.6-10.3) L 10/10/24 08:41 Phosphorus 3.3 mg/dl (2.5-4.9) 10/08/24 08:24 Magnesium 2.0 mg/dl (1.7-2.4) 10/08/24 08:24 Total Bilirubin 1.4 mg/dl (0.2-1.0) H 10/10/24 05:38 Direct Bilirubin 0.5 mg/dl (0-0.2) H 10/10/24 05:38 AST 45 U/L (13-39) H 10/10/24 05:38 ALT 29 U/L (7-52) 10/10/24 05:38 Alkaline Phosphatase 83 U/L (34-104) 10/10/24 05:38 Troponin I High Sens < 2.3 pg/ml (0-14) 10/07/24 14:15 Total Protein 4.9 gm/dl (6.0-8.3) L 10/10/24 05:38 Albumin 2.9 gm/dl (3.4-5.0) L 10/10/24 05:38 Globulin 2.2 gm/dl (2.5-4.0) L 10/07/24 14:15 Albumin/Globulin Ratio 1.8 (0.9-2) 10/07/24 14:15 Impressions Chest X-Ray 10/07/24 13:52 XR chest 1V portable CLINICAL HISTORY: Chest pain, nonspecific COMPARISON STUDY: None FINDINGS: Single view portable chest demonstrates no acute cardiopulmonary process. There is no airspace opacity, atelectasis, or pneumothorax. Lung volumes are low with no mediastinal shift. The heart and pulmonary vascularity are unremarkable. IMPRESSION: No acute process ACT 112: Negative or not required by law. Electronically signed by: Shannon Flowers M.D. 10/07/2024 3:06 PM ABDOMEN AND PELVIS CT WITH IV CONTRAST CT DOSE: 2180 HISTORY: left flank ecchymosis, elevated INR TECHNIQUE: Multiaxial CT images of the abdomen and pelvis were performed following the IV administration of 90 cc of Optiray, A dose lowering technique was utilized adhering to the principles of ALARA. COMPARISON STUDY: 01/06/2024 FINDINGS: ABDOMEN: There is severe fatty liver. Gallbladder is surgically absent. Spleen, pancreas, and adrenal glands are unremarkable. Kidneys show no hydronephrosis or calculi. No abdominal aortic aneurysm. Stable operative changes at the stomach. Small fat-containing right ventral hernia is stable. Pelvis: Uterus and adnexa are grossly unremarkable. Urinary bladder is nondistended. There is mild retained stool. No bowel inflammation or obstruction. No enlarged adenopathy. There is an intramuscular hematoma within the left lateral gluteal musculature measuring up to 7 cm in greatest axial dimension. No evidence of active hemorrhage seen. There is a small possible sebaceous cyst lower left posterior lateral flank. Osseous structures: There is osteopenia. There are mild lumbar and hip degenerative changes. No acute fracture seen in the visualized osseous structures. IMPRESSION: 1. Small left gluteal intramuscular hematoma without evidence of acute hemorrhage. No underlying hip fracture seen. 2. No other acute findings seen. Otherwise as described. ACT 112: Negative or not required by law. Head CT 10/07/24 15:23 CT head/brain wo con CLINICAL HISTORY: 44 years-old Female with headache, INR >10. Acute headache TECHNIQUE: Multiple axial CT images of the head were obtained without contrast. A dose lowering technique was utilized adhering to the principles of ALARA. CT DOSE: 2179.87 mGy.cm COMPARISON: 01/06/2024 FINDINGS: No acute intracranial hemorrhage, midline shift, intracranial mass, hydrocephalus, territorial ischemia or abnormal extra-axial collection. The calvarium is intact. Trace right mastoid effusion. Left mastoid air cells and paranasal sinuses appear clear. Unremarkable soft tissues and orbits. IMPRESSION: No acute intracranial abnormality. ACT 112: Negative or not required by law. The above report was generated using voice recognition software. It may contain grammatical, syntax or spelling errors. Electronically signed by: Kurt Gipson M.D. 10/07/2024 3:48 PM Venous Doppler Study 10/08/24 10:39 BILATERAL LOWER EXTREMITY VENOUS DOPPLER HISTORY: Acute pain and swelling of the right lower leg lower extremity pain, hx of dvt COMPARISON STUDY: 01/06/2024 FINDINGS: RIGHT-Thrombus is noted within one of the duplicated distal popliteal veins which appears occlusive. Additionally, nonocclusive thrombus is noted within the posterior tibial and peroneal veins. Findings are similar to mildly improved from prior. No definite acute DVT identified. Left-nonocclusive and partially occlusive thrombi within the posterior tibial and peroneal veins. No additional deep or superficial venous thrombi. Findings are similar to mildly improved from prior. No definite acute DVT identified. IMPRESSION: 1. Chronic appearing DVTs as above. 2. No definite acute DVT identified. ACT 112: Negative or not required by law. Electronically signed by: Kurt Gipson M.D. 10/08/2024 12:26 PM Chest CTA 10/08/24 10:40 CT angio chest PE protocol CT DOSE: 901.57 mGy.cm HISTORY: PE. TECHNIQUE: Multiple CTA images of the chest were obtained after the intravenous administration of 112 ml Optiray. Coronal and sagittal MIPS were obtained from the axial data set and were submitted for review. All measurements were obtained according to NASCET criteria. A dose lowering technique was utilized adhering to the principles of ALARA. COMPARISON STUDY: 01/20/2024 FINDINGS: There is minimal atelectasis in the lung bases. There is no pulmonary consolidation, pleural effusion, or pneumothorax. No enlarged adenopathy. No pericardial effusion. There is severe fatty liver. No thoracic aortic dissection or aneurysm. No pericardial effusion. No pulmonary embolism. No acute osseous findings. IMPRESSION: No pulmonary embolism or pneumonia seen. ACT 112: Negative or not required by law. The above report was generated using voice recognition software. It may contain grammatical, syntax or spelling errors. Electronically signed by: Robert Mckay M.D. 10/08/2024 12:50 PM Abdomen/Pelvis CT 10/09/24 10:44 Clinical History: Follow-up of left gluteal hematoma Technique: Axial computed tomography images were obtained of the abdomen and pelvis without intravenous contrast. Comparison is made to the prior CT dated 10/07/2024 Findings: There is diffuse fatty infiltration of the liver. The liver is enlarged measuring 22.2 cm craniocaudal. No definite liver mass lesion is seen on this noncontrast study. The gallbladder has been removed. No bile duct dilatation is noted. The spleen is of normal size. No focal splenic lesion is evident. The pancreas appears normal with no sign of acute or chronic pancreatitis and no mass lesion noted. The pancreatic duct is of normal caliber. The adrenal glands appear unremarkable. No renal or proximal ureteral calculi are seen. There is some residual contrast within the renal cortex bilaterally. There is no hydronephrosis or perinephric stranding. No definite renal mass lesion is identified. The aorta is of normal caliber. No abdominal adenopathy is seen. There is a small right paracentral ventral hernia in the right mid abdomen, containing only fat Postsurgical changes are seen of gastric bypass surgery. There is no sign of small bowel obstruction. The colon appears unremarkable. The appendix appears normal also. No free intraperitoneal fluid or air is identified. There is apparent dilute excreted contrast within the urinary bladder. No definite bladder mass lesion is evident. The iliac arteries are of normal caliber. No pelvic adenopathy is noted. There is mild bilateral lung base atelectasis. There has been interval decrease in enlargement of the anterior lateral aspect of the left gluteus medius muscle, likely due to improving intramuscular hemorrhage. No discrete measurable hematoma or other fluid collection is seen. No fracture is identified. No focal osseous lesion is seen Impression: 1. Apparent interval decrease in intramuscular hemorrhage within the left gluteus medius muscle 2. Unchanged diffuse fatty infiltration of the liver 3. Hepatomegaly 4. Small ventral hernia containing only fat Electronically signed by Des Voss 10-09-2024 11:48 AM Pending Results Patient Have Any Pending Studies at Discharge: No Discharge Instructions Given to Patient (Per Discharging Provider) PLEASE REFER TO YOUR NEW MEDICATION LIST AND FOLLOW INSTRUCTIONS CAREFULLY. YOUR NEW MEDICATIONS INCLUDE: Please stop Coumadin. Start Eliquis 5 mg twice a day. PLEASE CALL YOUR PRIMARY CARE PHYSICIAN OR RETURN TO THE ER IF WITH WORSENING OF SYMPTOMS, INCLUDING Increasing left buttock hematoma, pain, swelling, bleeding, etc. FOLLOW UP WITH PRIMARY CARE PHYSICIAN OUTLINED ABOVE. Please follow-up with your hedis abstractor in 2 to 3 weeks. If you sustain any head injury, even if you are not having any symptoms, please proceed to the emergency room for evaluation including a CAT scan of your head. Take care. Total Time Total Time Spent Total Time Spent (In Minutes): 45 minutes
== END 2024-10-10 09:56 | disposition home or self-care (01) | DRG 605 ==
LOC: ED 13:42 → SUATTDRO 17:19 → 2N 17:19